=== PATIENT | male | born 1975 | race African-American/Black ===

== ENCOUNTER 2016-06-14 09:33 | Emergency (ER) | payer OTHER, MEDICARE ==
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
[2016-06-14 12:34] LABS: ABSOLUTE EOSINOPHILS # (AUTO) 0.3 10^3/uL (0.0-0.6); ABSOLUTE MONOCYTES (AUTO) 0.4 10^3/uL (0.1-1.4); ABSOLUTE NEUT (AUTO) 2.9 10^3/uL (1.7-8.2); BASOPHILS % (AUTO) 0.7 % (0-2); EOSINOPHILS % (AUTO) 5.1 % (0-6); HEMATOCRIT 36.2 % (37.9-51.0); HEMOGLOBIN 11.8 g/dL (13.5-17.0); HGB HCT DIFFERENCE -0.8; LYMPHOCYTES % (AUTO) 35.5 % (13-45); MEAN CORPUSCULAR HEMOGLOBIN 26.7 pg (27.0-33.4); MEAN CORPUSCULAR HGB CONC 32.7 g/dL (32.0-36.0); MEAN CORPUSCULAR VOLUME 82 fl (80-97); MONOCYTES % (AUTO) 7.4 % (3-13); RED BLOOD COUNT 4.44 10^6/uL (4.35-5.55); RED CELL DISTRIBUTION WIDTH 15.6 % (11.5-14.0); SEGMENTED NEUTROPHILS % (AUTO) 51.3 % (42-78); WHITE BLOOD COUNT 5.7 10^3/uL (4.0-10.5)
[2016-06-14 13:10] VITALS: BP 137/88
== END 2016-06-14 13:09 | disposition home or self-care (01) ==
LOC: ER 09:33
DX: Z48.817 Encounter for surgical aftercare following surgery on the skin and subcutaneous tissue (principal); M79.602 Pain in left arm; R11.2 Nausea with vomiting, unspecified; I10 Essential (primary) hypertension; M54.5 Low back pain; G89.29 Other chronic pain; Z79.891 Long term (current) use of opiate analgesic; Z88.0 Allergy status to penicillin; Z88.8 Allergy status to other drugs, medicaments and biological substances; Z88.5 Allergy status to narcotic agent
CPT/HCPCS: 36415; 85025; 99283

== ENCOUNTER 2016-07-19 06:47 | Emergency (ER) | payer OTHER, MEDICARE ==
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
[2016-07-19] MEDS ORDERED: CLINDAMYCIN HCL 150 MG CAPSULE PO ONE (08:25)
[2016-07-19] MEDS ORDERED: PREDNISONE 20 MG TABLET PO ONE (08:26)
[2016-07-19 09:08] VITALS: BP 136/74
== END 2016-07-19 09:08 | disposition home or self-care (01) ==
LOC: ER 06:47
DX: K08.89 Other specified disorders of teeth and supporting structures (principal); Z79.899 Other long term (current) drug therapy
CPT/HCPCS: 99283; J7512

== ENCOUNTER 2016-09-07 04:41 | Emergency (ER) | payer OTHER, MEDICARE ==
[2016-09-07] MEDS ORDERED: OXYCODONE-ACETAMINOPHEN 5-325 MG TABLET ONE (11:32)
== END 2016-09-07 11:41 | disposition home or self-care (01) ==
LOC: ER 04:41
DX: S39.012A Strain of muscle, fascia and tendon of lower back, initial encounter (principal); G89.21 Chronic pain due to trauma; M54.9 Dorsalgia, unspecified; W10.9XXA Fall (on) (from) unspecified stairs and steps, initial encounter
CPT/HCPCS: 96372; 99283

== ENCOUNTER → 2016-09-08 | Outpatient (CLI) | payer MEDICARE, OTHER ==
[2016-09-09 09:19] LABS: BLOOD UREA NITROGEN 8 mg/dL (7-20); CALCIUM 9.9 mg/dL (8.4-10.2); CHLORIDE 105 mmol/L (98-107); GLUCOSE 91 mg/dL (75-110)
[2016-09-09 09:21] LABS: ANION GAP 13 (5-19); CARBON DIOXIDE 23 mmol/L (22-30); SODIUM 141.4 mmol/L (137-145)
--- NOTE | 2016-09-10 17:47 | EKG REPORT ---
SEVERITY:- NORMAL ECG - SINUS RHYTHM : Confirmed by: Divine Crook MD 10-Sep-2016 17:47:00
== END ==
LOC: OD 07:35
PROVIDERS: ATTEND Orthopaedic Surgery
DX: Z01.810 Encounter for preprocedural cardiovascular examination (principal); Z01.812 Encounter for preprocedural laboratory examination; Z01.818 Encounter for other preprocedural examination
CPT/HCPCS: 36415; 80048; 93005; 93010

== ENCOUNTER 2016-09-09 03:41 | Emergency (ER) | payer MEDICARE, OTHER ==
[~2016-09-09 03:41] MED LIST: HYDROMORPHONE HCL INJ/PF 2 MG/ML AMPULE ONE; PREDNISONE 20 MG TABLET ONE; PROMETHAZINE HCL 25 MG TABLET ONE
[2016-09-09 06:04] LABS: APPEARANCE,URINE CLEAR; BILIRUBIN,URINE NEGATIVE (NEGATIVE); CALCIUM OXALATE CRYSTALS,URINE FEW /HPF; GLUCOSE, URINE NEGATIVE (NEGATIVE); KETONES,URINE NEGATIVE (NEGATIVE); LEUKOCYTE ESTERASE,URINE NEGATIVE (NEGATIVE); NITRITE,URINE NEGATIVE (NEGATIVE); PROTEIN,URINE NEGATIVE (NEGATIVE); URINE SPECIFIC GRAVITY 1.032; UROBILINOGEN,URINE NEGATIVE mg/dL (<2.0)
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
[2016-09-09] MEDS ORDERED: NORMAL SALINE 1000 ML 1,000 ML IV ONE (07:29)
[2016-09-09] MEDS ORDERED: DEXAMETHASONE SOD PHOS INJ 10 MG/1 ML VIAL IV ONE (07:30)
[2016-09-09] MEDS ORDERED: HYDROMORPHONE HCL INJ/PF 2 MG/ML AMPULE IV ONE ×4 (07:30→18:59)
[2016-09-09] MEDS ORDERED: PREDNISONE 20 MG TABLET PO ONE (08:48)
[2016-09-09] MEDS ORDERED: ONDANSETRON 4 MG TAB.RAPDIS PO ONE (08:48)
[2016-09-09] MEDS ORDERED: OXYCODONE-ACETAMINOPHEN 5-325 MG TABLET PO ONE (08:48)
[2016-09-09] MEDS ORDERED: ONDANSETRON HCL INJ/PF 4 MG/2 ML SDV IV ONE ×2 (13:12→18:59)
[2016-09-09 21:13] VITALS: BP 138/74
== END 2016-09-09 21:15 | disposition home or self-care (01) ==
LOC: ER 03:41
DX: M54.17 Radiculopathy, lumbosacral region (principal); R11.10 Vomiting, unspecified; I10 Essential (primary) hypertension; Z87.442 Personal history of urinary calculi; Z90.49 Acquired absence of other specified parts of digestive tract; Z88.6 Allergy status to analgesic agent; Z88.0 Allergy status to penicillin
CPT/HCPCS: 96376; 99284; 96361; 96374; 96375; 81001; 72158; A9577; A9270; J1170; J2405; J7030; J1100; S0119

== ENCOUNTER 2016-09-14 12:45 | Day surgery (SDC) | payer MEDICARE, OTHER ==
--- NOTE | 2016-09-14 08:33 | RADIOLOGY REPORT (SQ) ---
EXAM DESCRIPTION: CHEST SINGLE VIEW COMPLETED DATE/TIME: 09/14/2016 8:21 am REASON FOR STUDY: PRE OP COMPARISON: 05/06/2015. EXAM PARAMETERS: NUMBER OF VIEWS: One view. TECHNIQUE: Single frontal radiographic view of the chest acquired. RADIATION DOSE: NA LIMITATIONS: None. FINDINGS: LUNGS AND PLEURA: No opacities, masses or pneumothorax. No pleural effusion. MEDIASTINUM AND HILAR STRUCTURES: No masses. Contour normal. HEART AND VASCULAR STRUCTURES: Heart upper limits of normal in size. Normal vasculature. BONES: No acute findings. HARDWARE: None in the chest. OTHER: No other significant finding. IMPRESSION: NO ACUTE RADIOGRAPHIC FINDING IN THE CHEST. TECHNICAL DOCUMENTATION: JOB ID: [id number]
[2016-09-14 08:42] LABS: HEMATOCRIT 40.8 % (37.9-51.0); HEMOGLOBIN 13.5 g/dL (13.5-17.0); HGB HCT DIFFERENCE -0.3; MEAN CORPUSCULAR HEMOGLOBIN 26.7 pg (27.0-33.4); MEAN CORPUSCULAR VOLUME 81 fl (80-97); RED BLOOD COUNT 5.05 10^6/uL (4.35-5.55)
--- NOTE | 2016-09-14 10:50 | Operative Report ---
Operative Report DATE OF SURGERY: 09/14/16 PREOPERATIVE DIAGNOSIS: Left partial foot amputation OPERATION: Left Lisfranc revision amputation SURGEON: PHUC CRABTREE ANESTHESIA: GA TISSUE REMOVED OR ALTERED: Left forefoot pathology ESTIMATED BLOOD LOSS: 100 PROCEDURE: With the patient supine the operating table left lower extremities prepped and draped in sterile fashion. The limb was elevated for exsanguination tourniquet inflated 280 torr. A fishmouth type incision is made over with a dorsal incision over the midfoot and the plantar incision over the distal metatarsal phalangeal region. Sharp dissection was used dorsally to carry the incision down to the metatarsal joint. The tarsal metatarsal joint is then divided beginning medially over the first ray and extending lateral to the to the fifth ray. The joint has been disarticulated the dissection then proceeded along the plantar surface between the metatarsal bone and the plantar musculature. Specimen was then delivered from the field. The wound was irrigated. The tourniquet was deflated. Hemostasis obtained with electrocautery. The plantar flap was then reapproximated by flipping it back to the dorsal skin and sutured with Vicryl followed by nylon. A sterile compressive dressing and plaster splint were applied and the patient's return to recovery room in satisfactory condition.
[~2016-09-14 12:45] MED LIST changes: +CLINDAMYCIN 600 MG/D5W RTU 600 MG/50 ML RTUPB IV PRN; +FENTANYL CITRATE INJ/PF 100 MCG/2 ML AMPUL IV PRN; +FENTANYL CITRATE INJ/PF 100 MCG/2 ML AMPUL ONE; +IBUPROFEN INJ 800 MG/8 ML VIAL IV ONE; +MEPERIDINE HCL/PF INJ 25 MG/1 ML DISP.SYRIN IV PRN; +MIDAZOLAM 2 MG/2 ML INJ ONE; +MORPHINE SULFATE 10 MG/ML INJ IV PRN; +ONDANSETRON 4 MG TAB.RAPDIS SL PRN; +OXYCODONE HCL IR 5 MG TABLET PO PRN; +OXYCODONE-ACETAMINOPHEN 5-325 MG TABLET ONE; +OXYCODONE-ACETAMINOPHEN 5-325 MG TABLET PO PRN; -PREDNISONE 20 MG TABLET ONE; -PROMETHAZINE HCL 25 MG TABLET ONE; +PROMETHAZINE HCL INJ 25 MG/1 ML VIAL IV PRN; +PROPOFOL INJ 200 MG/20 ML VIAL IV ONE; +RINGERS SOLUTION,LACTATED 1,000 ML IV PRN; +TRANEXAMIC ACID INJ/PF 1,000 MG/10 ML SDV IV ONE
[2016-09-14] MEDS ORDERED: TRANEXAMIC ACID INJ/PF 1,000 MG/10 ML SDV IV ONE ×2 (13:00→18:30)
[2016-09-14] MEDS ORDERED: SUCCINYLCHOLINE CHLORIDE INJ 200 MG/10 ML VIAL ONE (13:26)
[2016-09-14] MEDS ORDERED: DEXAMETHASONE SOD PHOSPHATE INJ 4 MG/1 ML VIAL ONE (13:26)
[2016-09-14] MEDS ORDERED: ONDANSETRON HCL INJ/PF 4 MG/2 ML SDV ONE (13:26)
[2016-09-14] MEDS ORDERED: HYDROMORPHONE HCL INJ/PF 2 MG/ML AMPULE ONE (13:30)
[2016-09-14] MEDS: HYDROMORPHONE HCL INJ/PF 2 MG/ML AMPULE IV PRN ×7 (14:34→23:45)
[2016-09-14] MEDS: CYCLOBENZAPRINE HCL 10 MG TABLET PO SCH ×2 (16:40→23:45)
[2016-09-14] MEDS: CLINDAMYCIN 600 MG/D5W RTU 600 MG/50 ML RTUPB IV SCH (18:21)
[2016-09-15] MEDS: HYDROMORPHONE HCL INJ/PF 2 MG/ML AMPULE IV PRN ×5 (01:08→22:06)
[2016-09-15] MEDS: CLINDAMYCIN 600 MG/D5W RTU 600 MG/50 ML RTUPB IV SCH (01:08)
[2016-09-15] MEDS: CYCLOBENZAPRINE HCL 10 MG TABLET PO SCH ×3 (05:31→17:25)
[2016-09-15] MEDS ORDERED: OXYCODONE HCL SR 10 MG TABLET PO ONE (07:00)
[2016-09-15] MEDS: OXYCODONE HCL IR 5 MG TABLET PO PRN ×3 (08:05→18:49)
[2016-09-15] MEDS: LOSARTAN POTASSIUM 50 MG TABLET PO SCH (09:02)
[2016-09-15] MEDS: LISINOPRIL 10 MG TABLET PO SCH (09:03)
[2016-09-15] MEDS: HYDROCHLOROTHIAZIDE 12.5 MG CAPSULE PO SCH (09:03)
[2016-09-15] MEDS: OXYCODONE HCL SR 10 MG TABLET PO SCH (17:25)
[2016-09-16] MEDS: HYDROMORPHONE HCL INJ/PF 2 MG/ML AMPULE IV PRN ×6 (00:31→11:16)
[2016-09-16] MEDS: CYCLOBENZAPRINE HCL 10 MG TABLET PO SCH ×3 (00:31→11:16)
[2016-09-16] MEDS: OXYCODONE HCL SR 10 MG TABLET PO SCH (06:13)
--- NOTE | 2016-09-16 06:38 | PDOC DISCHARGE SUMMARY ---
General - Admit/Disc Date/PCP Admission Date/Primary Care Provider: 09/14/16 07:54 PETER LUCAS MD Discharge Date: 09/16/16 - Discharge Diagnosis (1) Partial traumatic amputation of left foot Is this a current diagnosis for this admission?: Yes - Additional Information Resuscitation Status: Full Code Discharge Diet: As Tolerated, Regular Discharge Activity: Activity As Tolerated, Balance Activity w/Rest Home Medications: Lisinopril [Prinivil 10 mg Tablet] 10 mg PO DAILY 09/14/16 Cyclobenzaprine HCl [Flexeril 10 mg Tablet] 10 mg PO Q6 #0 tablet 09/16/16 Hydrochlorothiazide [Hydrodiuril 12.5 mg Capsule] 12.5 mg PO DAILY #0 capsule Lisinopril [Prinivil 10 mg Tablet] 10 mg PO DAILY #0 tablet 09/16/16 Losartan Potassium [Cozaar 50 mg Tablet] 50 mg PO DAILY #0 tablet 09/16/16 Oxycodone HCl [Oxy-Ir 5 mg Tablet] 10 mg PO Q4HP PRN #0 tablet 09/16/16 Oxycodone HCl [Oxycontin Sr 10 mg Tablet] 10 mg PO Q12A #0 tab.sr.12h 09/16/16 History of Present Illness History of Present Illness: TARI GALAVIZ is a 41 year old male posterior traumatic amputation of his left first ray with residual pain and functional disability. Patient is admitted for a elective partial foot amputation Hospital Course Hospital Course: Patient is admitted through the operating room where he undergoes a Lisfranc amputation which was uncomplicated. He is returned to the floor in satisfactory condition. Pain control is problematic. Pain management, Dr. Daniels, was consulted for assistance there of. Next progress with physical therapy emulating with crutches. Physical Exam Vital Signs: Temp Pulse Resp BP Pulse Ox 36.9 C 113 H 19 146/91 H 100 09/16/16 00:36 09/16/16 00:36 09/16/16 00:36 09/16/16 00:36 09/16/16 00:36 Intake & Output 09/14/16 09/15/16 09/16/16 06:59 06:59 06:59 Intake Total 3021 1185 Output Total 1314 0850 Balance 2325 -585 Weight 99.8 kg 99.8 kg General appearance: PRESENT: mild distress Head exam: PRESENT: normocephalic Eye exam: PRESENT: EOMI Respiratory exam: PRESENT: unlabored Cardiovascular exam: PRESENT: RRR Pulses: PRESENT: +1 pedal pulses bilateral Vascular exam: PRESENT: normal capillary refill GI/Abdominal exam: PRESENT: soft Rectal exam: PRESENT: deferred Extremities exam: PRESENT: other - Lower extremity dressing clean dry and intact Neurological exam: PRESENT: alert, awake, oriented to person, oriented to place , oriented to time, oriented to situation, CN II-XII grossly intact. ABSENT: motor sensory deficit Psychiatric exam: PRESENT: appropriate affect, normal mood. ABSENT: homicidal ideation, suicidal ideation Skin exam: PRESENT: dry, intact, warm. ABSENT: cyanosis, rash Results Laboratory Results: 09/14/16 08:25 09/14/16 08:25 Impressions: Chest X-Ray 09/14/16 00:00 IMPRESSION: NO ACUTE RADIOGRAPHIC FINDING IN THE CHEST. Status: Imported from [facility] BEING DISCHARGED WITH ANY OF THE FOLLOWING DIAGNOSIS?: No VTE patient discharged on overlapping Therapy?: No Reason(s) for not prescribing Overlap Therapy:: Not indicated Plan Discharge Plan: Discharge home with home health nursing, home health physical therapy, crutches. Will be with Dr. Baum in the [facility] for surgery approximately 2 weeks for suture removal.
[2016-09-16] MEDS: HYDROCHLOROTHIAZIDE 12.5 MG CAPSULE PO SCH (09:16)
[2016-09-16] MEDS: LISINOPRIL 10 MG TABLET PO SCH (09:16)
[2016-09-16] MEDS: LOSARTAN POTASSIUM 50 MG TABLET PO SCH (09:16)
[2016-09-16 15:04] VITALS: BP 174/106
== END 2016-09-16 15:04 | disposition home or self-care (01) ==
LOC: EDSTATUS 12:45 → OROUT 12:45 → INOR 12:54 → 4S 12:54 → UNDODISIN 09-16 15:04 → OROUT 09-16 15:04
PROVIDERS: ATTEND Orthopaedic Surgery
PROC: 0Y6N0ZB Detachment at Left Foot, Partial 2nd Ray, Open Approach (ICD-10-PCS; 2016-09-14)
PROC: 0Y6N0ZC Detachment at Left Foot, Partial 3rd Ray, Open Approach (ICD-10-PCS; 2016-09-14)
PROC: 0Y6N0ZD Detachment at Left Foot, Partial 4th Ray, Open Approach (ICD-10-PCS; 2016-09-14)
PROC: 0Y6N0ZF Detachment at Left Foot, Partial 5th Ray, Open Approach (ICD-10-PCS; 2016-09-14)
PROC: 0Y6N0Z9 Detachment at Left Foot, Partial 1st Ray, Open Approach (ICD-10-PCS; principal; 2016-09-14 10:15)
DX: G89.21 Chronic pain due to trauma (principal); M79.672 Pain in left foot; I10 Essential (primary) hypertension; Z89.412 Acquired absence of left great toe; Z79.899 Other long term (current) drug therapy; Z88.6 Allergy status to analgesic agent; Z88.5 Allergy status to narcotic agent
CPT/HCPCS: 36415; 84132; 85027; 88305 ×2; 88311; 71010; 97162; 28805; J2250; A9270 ×14; J1100; J3010; J1170 ×3; J0330; J2405; J7120; J2704; J3490; J1741; G8978; G8979; G8980; 01480; S0119

== ENCOUNTER 2016-09-30 15:27 | Emergency (ER) | payer MEDICARE ==
[2016-09-30 15:38] VITALS: BP 139/105
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
[2016-09-30 16:38] LABS: ABSOLUTE BASOPHILS # (AUTO) 0.1 10^3/uL (0.0-0.2); ABSOLUTE EOSINOPHILS # (AUTO) 0.1 10^3/uL (0.0-0.6); ABSOLUTE LYMPHOCYTES (AUTO) 2.5 10^3/uL (0.5-4.7); ABSOLUTE MONOCYTES (AUTO) 0.4 10^3/uL (0.1-1.4); ABSOLUTE NEUT (AUTO) 5.3 10^3/uL (1.7-8.2); EOSINOPHILS % (AUTO) 1.6 % (0-6); HEMATOCRIT 38.8 % (37.9-51.0); HEMOGLOBIN 12.8 g/dL (13.5-17.0); HGB HCT DIFFERENCE -0.4; LYMPHOCYTES % (AUTO) 29.5 % (13-45); MEAN CORPUSCULAR HEMOGLOBIN 26.4 pg (27.0-33.4); MEAN CORPUSCULAR HGB CONC 32.9 g/dL (32.0-36.0); MEAN CORPUSCULAR VOLUME 80 fl (80-97); MONOCYTES % (AUTO) 4.7 % (3-13); RED BLOOD COUNT 4.84 10^6/uL (4.35-5.55); RED CELL DISTRIBUTION WIDTH 14.6 % (11.5-14.0); SEGMENTED NEUTROPHILS % (AUTO) 63.2 % (42-78); WHITE BLOOD COUNT 8.5 10^3/uL (4.0-10.5)
[2016-09-30 16:53] LABS: ALANINE AMINOTRANSFERASE 30 U/L (21-72); ALBUMIN 4.6 g/dL (3.5-5.0); ALKALINE PHOSPHATASE 163 U/L (38-126); ANION GAP 14 (5-19); ASPARTATE AMINO TRANSFERASE 21 U/L (17-59); BILIRUBIN,DIRECT 0.3 mg/dL (0.0-0.4); BILIRUBIN,TOTAL 0.5 mg/dL (0.2-1.3); BLOOD UREA NITROGEN 13 mg/dL (7-20); CALCIUM 10.1 mg/dL (8.4-10.2); CARBON DIOXIDE 25 mmol/L (22-30); CHLORIDE 104 mmol/L (98-107); CREATININE RESULT 1.25 mg/dL (0.52-1.25); GLUCOSE 82 mg/dL (75-110); POTASSIUM 4.1 mmol/L (3.6-5.0); SODIUM 142.8 mmol/L (137-145); TOTAL PROTEIN 8.9 g/dL (6.3-8.2)
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
[2016-09-30] MEDS ORDERED: OXYCODONE HCL SR 10 MG TABLET PO ONE (18:41)
== END 2016-09-30 19:14 | disposition home or self-care (01) ==
LOC: ER 15:27
DX: S98.922 Partial traumatic amputation of left foot, level unspecified (principal); M79.672 Pain in left foot; R50.9 Fever, unspecified; G89.29 Other chronic pain; X58.XXXS Exposure to other specified factors, sequela
CPT/HCPCS: 99283; 36415; 87040; 85025; 80053; A9270

== ENCOUNTER 2016-10-23 21:40 | Emergency (ER) | payer MEDICARE ==
[2016-10-24 01:42] LABS: ABSOLUTE EOSINOPHILS # (AUTO) 0.4 10^3/uL (0.0-0.6); ABSOLUTE LYMPHOCYTES (AUTO) 2.6 10^3/uL (0.5-4.7); ABSOLUTE MONOCYTES (AUTO) 0.7 10^3/uL (0.1-1.4); ABSOLUTE NEUT (AUTO) 3.3 10^3/uL (1.7-8.2); BASOPHILS % (AUTO) 0.3 % (0-2); EOSINOPHILS % (AUTO) 5.3 % (0-6); HEMATOCRIT 36.4 % (37.9-51.0); HEMOGLOBIN 11.7 g/dL (13.5-17.0); HGB HCT DIFFERENCE -1.3; LYMPHOCYTES % (AUTO) 37.2 % (13-45); MEAN CORPUSCULAR HEMOGLOBIN 25.6 pg (27.0-33.4); MEAN CORPUSCULAR HGB CONC 32.1 g/dL (32.0-36.0); MEAN CORPUSCULAR VOLUME 80 fl (80-97); MONOCYTES % (AUTO) 9.6 % (3-13); RED BLOOD COUNT 4.56 10^6/uL (4.35-5.55); RED CELL DISTRIBUTION WIDTH 14.7 % (11.5-14.0); SEGMENTED NEUTROPHILS % (AUTO) 47.6 % (42-78)
[2016-10-24 01:45] LABS: ALANINE AMINOTRANSFERASE 25 U/L (21-72); ALBUMIN 4.3 g/dL (3.5-5.0); ALKALINE PHOSPHATASE 121 U/L (38-126); ANION GAP 13 (5-19); ASPARTATE AMINO TRANSFERASE 25 U/L (17-59); BILIRUBIN,DIRECT 0.3 mg/dL (0.0-0.4); BILIRUBIN,TOTAL 0.3 mg/dL (0.2-1.3); BLOOD UREA NITROGEN 7 mg/dL (7-20); CALCIUM 9.5 mg/dL (8.4-10.2); CARBON DIOXIDE 26 mmol/L (22-30); CHLORIDE 101 mmol/L (98-107); CREATININE RESULT 1.15 mg/dL (0.52-1.25); GLUCOSE 74 mg/dL (75-110); POTASSIUM 4.1 mmol/L (3.6-5.0); SODIUM 140.2 mmol/L (137-145); TOTAL PROTEIN 8.1 g/dL (6.3-8.2)
[2016-10-24] MEDS ORDERED: HYDROMORPHONE HCL INJ/PF 2 MG/ML AMPULE IV ONE ×2 (01:46→03:40)
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
--- NOTE | 2016-10-24 02:42 | RADIOLOGY REPORT (SQ) ---
EXAM DESCRIPTION: ANKLE LEFT COMPLETE COMPLETED DATE/TIME: 10/24/2016 2:19 am REASON FOR STUDY: injury, pain and swelling COMPARISON: None. NUMBER OF VIEWS: Three views. TECHNIQUE: AP, lateral, and oblique radiographic images acquired of the left ankle. LIMITATIONS: None. FINDINGS: MINERALIZATION: Normal. BONES: No acute fracture or dislocation. No worrisome bone lesions. 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 JOINTS: No effusions. SOFT TISSUES: Mild diffuse swelling of the left ankle. OTHER: No other significant finding. IMPRESSION: Moderate left ankle swelling. TECHNICAL DOCUMENTATION: JOB ID: [id number] [employer]- All Rights Reserved
--- NOTE | 2016-10-24 02:44 | RADIOLOGY REPORT (SQ) ---
EXAM DESCRIPTION: FOOT LEFT COMPLETE COMPLETED DATE/TIME: 10/24/2016 2:19 am REASON FOR STUDY: injury, pain and swelling COMPARISON: 03/18/2016. NUMBER OF VIEWS: Three views. TECHNIQUE: AP, lateral and oblique radiographic images acquired of the left foot. LIMITATIONS: None. FINDINGS: MINERALIZATION: Osteopenia. BONES: Interval amputation at the level of the left midfoot with associated moderate foot -ankle swel ling. Moderate Achilles tendinous enthesophyte. JOINTS: No effusions. SOFT TISSUES: As above. OTHER: No other significant finding. IMPRESSION: Moderate swelling. Prior amputation at the left midfoot. TECHNICAL DOCUMENTATION: JOB ID: [id number] [employer]- All Rights Reserved
[2016-10-24 04:04] VITALS: BP 154/90
== END 2016-10-24 04:02 | disposition home or self-care (01) ==
LOC: ER 21:40
DX: M25.472 Effusion, left ankle (principal); I10 Essential (primary) hypertension; Z89.432 Acquired absence of left foot; Z88.0 Allergy status to penicillin; Z88.8 Allergy status to other drugs, medicaments and biological substances; Z88.5 Allergy status to narcotic agent
CPT/HCPCS: 96376; 99283; 96374; 36415; 87040; 85025; 80053; 73610; 73630; J1170

== ENCOUNTER 2016-11-16 23:03 | Emergency (ER) | payer MEDICARE ==
[2016-11-17] MEDS ORDERED: HYDROMORPHONE HCL INJ/PF 2 MG/ML AMPULE IV ONE ×3 (00:36→02:56)
[2016-11-17] MEDS ORDERED: ONDANSETRON HCL INJ/PF 4 MG/2 ML SDV IV ONE (00:37)
[2016-11-17] MEDS ORDERED: NORMAL SALINE 1000 ML 1,000 ML IV PRN (00:37)
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
[2016-11-17 00:58] LABS: ABSOLUTE BASOPHILS # (AUTO) 0.1 10^3/uL (0.0-0.2); ABSOLUTE EOSINOPHILS # (AUTO) 0.3 10^3/uL (0.0-0.6); ABSOLUTE LYMPHOCYTES (AUTO) 4.1 10^3/uL (0.5-4.7); ABSOLUTE MONOCYTES (AUTO) 0.6 10^3/uL (0.1-1.4); ABSOLUTE NEUT (AUTO) 4.2 10^3/uL (1.7-8.2); BASOPHILS % (AUTO) 0.6 % (0-2); EOSINOPHILS % (AUTO) 3.2 % (0-6); HEMATOCRIT 38.7 % (37.9-51.0); HEMOGLOBIN 12.8 g/dL (13.5-17.0); HGB HCT DIFFERENCE -0.3; MEAN CORPUSCULAR HEMOGLOBIN 26.2 pg (27.0-33.4); MEAN CORPUSCULAR HGB CONC 33.1 g/dL (32.0-36.0); MEAN CORPUSCULAR VOLUME 79 fl (80-97); MONOCYTES % (AUTO) 6.8 % (3-13); RED BLOOD COUNT 4.91 10^6/uL (4.35-5.55); RED CELL DISTRIBUTION WIDTH 15.2 % (11.5-14.0); SEGMENTED NEUTROPHILS % (AUTO) 45.4 % (42-78); WHITE BLOOD COUNT 9.2 10^3/uL (4.0-10.5)
[2016-11-17 01:26] LABS: ALANINE AMINOTRANSFERASE 27 U/L (21-72); ALBUMIN 4.6 g/dL (3.5-5.0); ALKALINE PHOSPHATASE 111 U/L (38-126); ANION GAP 14 (5-19); ASPARTATE AMINO TRANSFERASE 26 U/L (17-59); BILIRUBIN,DIRECT 0.4 mg/dL (0.0-0.4); BILIRUBIN,TOTAL 0.5 mg/dL (0.2-1.3); BLOOD UREA NITROGEN 9 mg/dL (7-20); CALCIUM 9.3 mg/dL (8.4-10.2); CARBON DIOXIDE 26 mmol/L (22-30); CHLORIDE 102 mmol/L (98-107); GLUCOSE 101 mg/dL (75-110); POTASSIUM 4.6 mmol/L (3.6-5.0); SODIUM 141.6 mmol/L (137-145); TOTAL PROTEIN 8.3 g/dL (6.3-8.2)
[2016-11-17 01:28] LABS: C-REACTIVE PROTEIN < 5.0 mg/L (<10.0)
[2016-11-17 01:35] LABS: ERYTHROCYTE SEDIMENTATION RATE 22 mm/hr (0-15)
--- NOTE | 2016-11-17 01:54 | RADIOLOGY REPORT (SQ) ---
EXAM DESCRIPTION: FOOT LEFT COMPLETE COMPLETED DATE/TIME: 11/17/2016 1:35 am REASON FOR STUDY: left foot pain COMPARISON: 10/24/2016. NUMBER OF VIEWS: Three views. TECHNIQUE: AP, lateral and oblique radiographic images acquired of the left foot. LIMITATIONS: None. FINDINGS: MINERALIZATION: Osteopenia. BONES: No acute fracture or dislocation. No worrisome bone lesions. Head cage/ resection site of th e left midfoot with associated swelling. Mild talonavicular osteoarthritis. JOINTS: No effusions. SOFT TISSUES: As above. OTHER: No other significant finding. IMPRESSION: Stable. Moderate swelling. Prior amputation -resection at the left midfoot. TECHNICAL DOCUMENTATION: JOB ID: [id number] [employer]- All Rights Reserved
[2016-11-17] MEDS ORDERED: HYDROMORPHONE HCL INJ/PF 2 MG/ML AMPULE ONE (02:23)
[2016-11-17 03:18] VITALS: BP 129/76
== END 2016-11-17 03:17 | disposition home or self-care (01) ==
LOC: ER 23:03
DX: M79.2 Neuralgia and neuritis, unspecified (principal); M79.672 Pain in left foot; M79.89 Other specified soft tissue disorders; I10 Essential (primary) hypertension; Z79.891 Long term (current) use of opiate analgesic; Z79.899 Other long term (current) drug therapy; Z89.432 Acquired absence of left foot; Z88.0 Allergy status to penicillin; Z88.8 Allergy status to other drugs, medicaments and biological substances; Z88.5 Allergy status to narcotic agent
CPT/HCPCS: 96376; 99283; 96361; 96374; 96375; 36415; 85025; 85652; 86140; 80053; 73630; J1170; J2405; J7030

== ENCOUNTER 2016-12-11 10:21 | Emergency (ER) | payer MEDICARE, OTHER ==
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
--- NOTE | 2016-12-11 11:23 | RADIOLOGY REPORT (SQ) ---
EXAM DESCRIPTION: FOOT LEFT COMPLETE COMPLETED DATE/TIME: 12/11/2016 11:10 am REASON FOR STUDY: mid foot pain, s/p partial amputation COMPARISON: 11/17/2016. NUMBER OF VIEWS: Three views. TECHNIQUE: AP, lateral and oblique radiographic images acquired of the left foot. LIMITATIONS: None. FINDINGS: MINERALIZATION: Normal. BONES: Stable post amputation change. No acute fracture or dislocation. No worrisome bone lesions. JOINTS: No effusions. SOFT TISSUES: Stable post amputation change. No foreign body. OTHER: No other significant finding. IMPRESSION: STABLE APPEARANCE OF THE LEFT FOOT WITHOUT ACUTE ABNORMALITY IDENTIFIED. TECHNICAL DOCUMENTATION: JOB ID: [id number] [employer]- All Rights Reserved
[2016-12-11 11:42] VITALS: BP 148/96
== END 2016-12-11 11:42 | disposition home or self-care (01) ==
LOC: ER 10:21
DX: M79.672 Pain in left foot (principal); I10 Essential (primary) hypertension; Z79.891 Long term (current) use of opiate analgesic; Z79.899 Other long term (current) drug therapy; Z89.432 Acquired absence of left foot; Z88.0 Allergy status to penicillin; Z88.8 Allergy status to other drugs, medicaments and biological substances; Z87.891 Personal history of nicotine dependence
CPT/HCPCS: 99283

== ENCOUNTER 2016-12-31 07:41 | Emergency (ER) | payer OTHER, MEDICARE ==
--- NOTE | 2016-12-31 08:56 | RADIOLOGY REPORT (SQ) ---
EXAM DESCRIPTION: CT HEAD WITHOUT COMPLETED DATE/TIME: 12/31/2016 8:43 am REASON FOR STUDY: left sided headache, ?rt sided muscle weakness COMPARISON: 2013. TECHNIQUE: Axial images acquired through the brain without intravenous contrast. Images reviewed wi th bone, brain and subdural windows. Images stored on PACS. All CT scanners at this facility use dose modulation, iterative reconstruction, and/or weight based d osing when appropriate to reduce radiation dose to as low as reasonably achievable (ALARA). [facility]: Dose Right [facility]: CareDose [facility]: Dose Right [facility]: Teradose 4D [facility]: DealTraction RADIATION DOSE: Up-to-date CT equipment and radiation dose reduction techniques were employed. CTDIv ol: 64.6 mGy. DLP: 1163 mGy-cm. mGy. LIMITATIONS: None. FINDINGS: VENTRICLES: Normal size and contour. CEREBRUM: No masses. No hemorrhage. No midline shift. No evidence for acute infarction. Normal gra y/white matter differentiation. No areas of low density in the white matter. CEREBELLUM: No masses. No hemorrhage. No alteration of density. No evidence for acute infarction. EXTRAAXIAL SPACES: No fluid collections. No masses. ORBITS AND GLOBE: No intra- or extraconal masses. Normal contour of globe without masses. CALVARIUM: No fracture. PARANASAL SINUSES: No fluid or mucosal thickening. SOFT TISSUES: No mass or hematoma. OTHER: No other significant finding. IMPRESSION: NORMAL BRAIN CT WITHOUT CONTRAST. COMMENT: Quality ID # [id number]: Final reports with documentation of one or more dose reduction techniques (e.g., Automated exposure control, adjustment of the mA and/or kV according to patient size, use of iterative reconstruction technique) TECHNICAL DOCUMENTATION: JOB ID: [id number]- All Rights Reserved
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
[2016-12-31 09:32] LABS: ABSOLUTE EOSINOPHILS # (AUTO) 0.1 10^3/uL (0.0-0.6); ABSOLUTE LYMPHOCYTES (AUTO) 1.4 10^3/uL (0.5-4.7); ABSOLUTE MONOCYTES (AUTO) 0.6 10^3/uL (0.1-1.4); ABSOLUTE NEUT (AUTO) 6.2 10^3/uL (1.7-8.2); BASOPHILS % (AUTO) 0.5 % (0-2); EOSINOPHILS % (AUTO) 1.5 % (0-6); HEMATOCRIT 40.2 % (37.9-51.0); HEMOGLOBIN 12.7 g/dL (13.5-17.0); HGB HCT DIFFERENCE -2.1; LYMPHOCYTES % (AUTO) 16.9 % (13-45); MEAN CORPUSCULAR HGB CONC 31.5 g/dL (32.0-36.0); MEAN CORPUSCULAR VOLUME 79 fl (80-97); MONOCYTES % (AUTO) 7.1 % (3-13); RED BLOOD COUNT 5.07 10^6/uL (4.35-5.55); RED CELL DISTRIBUTION WIDTH 16.3 % (11.5-14.0); WHITE BLOOD COUNT 8.4 10^3/uL (4.0-10.5)
[2016-12-31 09:41] LABS: APPEARANCE,URINE SLIGHTLY-CLOUDY; BILIRUBIN,URINE NEGATIVE (NEGATIVE); CALCIUM OXALATE CRYSTALS,URINE FEW /HPF; GLUCOSE, URINE NEGATIVE (NEGATIVE); KETONES,URINE NEGATIVE (NEGATIVE); LEUKOCYTE ESTERASE,URINE NEGATIVE (NEGATIVE); NITRITE,URINE NEGATIVE (NEGATIVE); PROTEIN,URINE 30 mg/dL (NEGATIVE); URINE SPECIFIC GRAVITY 1.028; UROBILINOGEN,URINE NEGATIVE mg/dL (<2.0)
[2016-12-31 09:53] LABS: ALANINE AMINOTRANSFERASE 18 U/L (21-72); ALBUMIN 4.7 g/dL (3.5-5.0); ALKALINE PHOSPHATASE 88 U/L (38-126); ANION GAP 15 (5-19); ASPARTATE AMINO TRANSFERASE 22 U/L (17-59); BILIRUBIN,DIRECT 0.3 mg/dL (0.0-0.4); BILIRUBIN,TOTAL 0.5 mg/dL (0.2-1.3); BLOOD UREA NITROGEN 11 mg/dL (7-20); CALCIUM 9.9 mg/dL (8.4-10.2); CARBON DIOXIDE 23 mmol/L (22-30); CHLORIDE 101 mmol/L (98-107); CREATINE KINASE 160 U/L (55-170); CREATININE RESULT 0.92 mg/dL (0.52-1.25); GLUCOSE 105 mg/dL (75-110); POTASSIUM 3.7 mmol/L (3.6-5.0); SODIUM 139.2 mmol/L (137-145)
[2016-12-31 10:00] LABS: URINE BARBITURATES SCREEN NEGATIVE; URINE METHADONE SCREEN NEGATIVE; URINE OPIATES LOW UNCONFIRMED POSITIVE; URINE PHENCYCLIDINE SCREEN NEGATIVE
[2016-12-31] MEDS ORDERED: PROCHLORPERAZINE EDISYLATE INJ 10 MG/2 ML VIAL IM ONE (10:25)
[2016-12-31] MEDS ORDERED: ONDANSETRON HCL 8 MG TABLET PO ONE (10:25)
[2016-12-31 11:28] VITALS: BP 149/85
== END 2016-12-31 11:30 | disposition home or self-care (01) ==
LOC: ER 07:41
DX: R51 Headache (principal); M62.838 Other muscle spasm; R47.82 Fluency disorder in conditions classified elsewhere; R53.1 Weakness; I10 Essential (primary) hypertension; Z88.0 Allergy status to penicillin; Z88.6 Allergy status to analgesic agent; Z90.49 Acquired absence of other specified parts of digestive tract
CPT/HCPCS: 99284; 96372; 36415; 82550; 85025; 80053; 81001; 80307; 70450; S0119; J0780

== ENCOUNTER 2017-03-04 23:15 | Emergency (ER) | payer OTHER, MEDICARE ==
[2017-03-05] MEDS ORDERED: OXYCODONE-ACETAMINOPHEN 5-325 MG TABLET PO ONE (00:12)
[2017-03-05] MEDS ORDERED: METHYLPREDNISOLONE INJ 125 MG/2 ML SDV IM ONE (00:12)
[2017-03-05] MEDS ORDERED: CARISOPRODOL 350 MG TABLET PO ONE (00:12)
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
[2017-03-05 00:46] LABS: APPEARANCE,URINE SLIGHTLY-CLOUDY; BILIRUBIN,URINE NEGATIVE (NEGATIVE); GLUCOSE, URINE NEGATIVE (NEGATIVE); KETONES,URINE NEGATIVE (NEGATIVE); LEUKOCYTE ESTERASE,URINE NEGATIVE (NEGATIVE); NITRITE,URINE NEGATIVE (NEGATIVE); PROTEIN,URINE NEGATIVE (NEGATIVE); URINE SPECIFIC GRAVITY 1.035
[2017-03-05 02:09] VITALS: BP 142/90
--- NOTE | 2017-03-05 02:33 | RADIOLOGY REPORT (SQ) ---
EXAM DESCRIPTION: L SPINE WHOLE COMPLETED DATE/TIME: 03/05/2017 1:29 am REASON FOR STUDY: back pain COMPARISON: None. NUMBER OF VIEWS: Five views including obliques. TECHNIQUE: AP, lateral, oblique, and sacral radiographic images acquired of the lumbar spine. LIMITATIONS: None. FINDINGS: MINERALIZATION: Normal. SEGMENTATION: Normal. No transitional anatomy. ALIGNMENT: Normal. VERTEBRAE: Maintained height. No compression fracture. DISCS: Preserved height. No significant osteophytes or end plate irregularity. POSTERIOR ELEMENTS: Pedicles and facets are intact. No pars defect. HARDWARE: None in the spine. PARASPINAL SOFT TISSUES: Normal. PELVIS: SI joints intact. IMPRESSION: No acute radiographic finding at the lumbar spine. TECHNICAL DOCUMENTATION: JOB ID: [id number] [employer]- All Rights Reserved
== END 2017-03-05 02:00 | disposition home or self-care (01) ==
LOC: ER 23:15
DX: G89.29 Other chronic pain (principal); M54.41 Lumbago with sciatica, right side; R32 Unspecified urinary incontinence; R30.0 Dysuria; I10 Essential (primary) hypertension; Z79.891 Long term (current) use of opiate analgesic; Z98.890 Other specified postprocedural states; Z88.0 Allergy status to penicillin; Z88.8 Allergy status to other drugs, medicaments and biological substances; Z88.5 Allergy status to narcotic agent
CPT/HCPCS: 99284; 96372; 81001; 72110; J3490; J2930

== ENCOUNTER 2017-03-10 09:23 | Emergency (ER) | payer OTHER, MEDICARE ==
[2017-03-10 09:36] VITALS: BP 149/99
[2017-03-10] MEDS ORDERED: ACETAMINOPHEN 325 MG TABLET PO ONE (10:32)
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
== END 2017-03-10 11:38 | disposition left against medical advice (07) ==
LOC: ER 09:23
DX: M79.672 Pain in left foot (principal); M79.89 Other specified soft tissue disorders; Z89.432 Acquired absence of left foot; Z79.899 Other long term (current) drug therapy
CPT/HCPCS: 99281

== ENCOUNTER 2017-03-20 01:33 | Emergency (ER) | payer OTHER, MEDICARE ==
[2017-03-20] MEDS ORDERED: HYDROMORPHONE HCL INJ/PF 2 MG/ML AMPULE IV ONE (03:20)
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
[2017-03-20] MEDS ORDERED: OXYCODONE-ACETAMINOPHEN 5-325 MG TABLET PO ONE (03:24)
[2017-03-20 03:48] LABS: ABSOLUTE EOSINOPHILS # (AUTO) 0.2 10^3/uL (0.0-0.6); ABSOLUTE LYMPHOCYTES (AUTO) 3.6 10^3/uL (0.5-4.7); ABSOLUTE MONOCYTES (AUTO) 0.5 10^3/uL (0.1-1.4); ABSOLUTE NEUT (AUTO) 3.5 10^3/uL (1.7-8.2); BASOPHILS % (AUTO) 0.5 % (0-2); EOSINOPHILS % (AUTO) 3.1 % (0-6); HEMATOCRIT 40.9 % (37.9-51.0); HEMOGLOBIN 13.3 g/dL (13.5-17.0); LYMPHOCYTES % (AUTO) 45.8 % (13-45); MEAN CORPUSCULAR HEMOGLOBIN 24.5 pg (27.0-33.4); MEAN CORPUSCULAR HGB CONC 32.6 g/dL (32.0-36.0); MEAN CORPUSCULAR VOLUME 75 fl (80-97); MONOCYTES % (AUTO) 5.9 % (3-13); RED BLOOD COUNT 5.45 10^6/uL (4.35-5.55); RED CELL DISTRIBUTION WIDTH 17.2 % (11.5-14.0); SEGMENTED NEUTROPHILS % (AUTO) 44.7 % (42-78); WHITE BLOOD COUNT 7.8 10^3/uL (4.0-10.5)
[2017-03-20 04:03] LABS: ALANINE AMINOTRANSFERASE 40 U/L (21-72); ALBUMIN 4.4 g/dL (3.5-5.0); ALKALINE PHOSPHATASE 113 U/L (38-126); ANION GAP 13 (5-19); ASPARTATE AMINO TRANSFERASE 20 U/L (17-59); BILIRUBIN,DIRECT 0.4 mg/dL (0.0-0.4); BILIRUBIN,TOTAL 0.4 mg/dL (0.2-1.3); BLOOD UREA NITROGEN 9 mg/dL (7-20); C-REACTIVE PROTEIN 5.3 mg/L (<10.0); CALCIUM 9.4 mg/dL (8.4-10.2); CARBON DIOXIDE 25 mmol/L (22-30); CHLORIDE 104 mmol/L (98-107); CREATININE RESULT 1.08 mg/dL (0.52-1.25); GLUCOSE 94 mg/dL (75-110); POTASSIUM 4.5 mmol/L (3.6-5.0); TOTAL PROTEIN 8.2 g/dL (6.3-8.2)
[2017-03-20 04:29] LABS: ERYTHROCYTE SEDIMENTATION RATE 18 mm/hr (0-15)
--- NOTE | 2017-03-20 05:35 | RADIOLOGY REPORT (SQ) ---
EXAM DESCRIPTION: FOOT LEFT COMPLETE COMPLETED DATE/TIME: 03/20/2017 5:05 am REASON FOR STUDY: left foot pain and swelling post amputation COMPARISON: None. NUMBER OF VIEWS: Three views. TECHNIQUE: AP, lateral and oblique radiographic images acquired of the left foot. LIMITATIONS: None. FINDINGS: MINERALIZATION: Osteopenia. BONES: Amputation at the Lisfranc joint with moderate soft tissue swelling. JOINTS: No effusions. SOFT TISSUES: As above. OTHER: No other significant finding. IMPRESSION: Amputation and swelling of the residual left forefoot, stable. TECHNICAL DOCUMENTATION: JOB ID: [id number] [employer]- All Rights Reserved
[2017-03-20 06:06] VITALS: BP 153/92
== END 2017-03-20 06:06 | disposition home or self-care (01) ==
LOC: ER 01:33
DX: M79.672 Pain in left foot (principal); I10 Essential (primary) hypertension; M79.89 Other specified soft tissue disorders
CPT/HCPCS: 36415; 80053; 85025; 85652; 86140; 87040; 99283

== ENCOUNTER 2017-04-08 23:44 | Emergency (ER) | payer OTHER, MEDICARE ==
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
--- NOTE | 2017-04-09 01:14 | RADIOLOGY REPORT (SQ) ---
EXAM DESCRIPTION: ANKLE LEFT COMPLETE CLINICAL HISTORY: injury COMPARISON: 10/24/2016 FINDINGS: 3 views of the left ankle. No acute fracture or dislocation. Left mid foot amputation is unchanged. Osteopenia. No radiopaque foreign body. IMPRESSION: No acute fracture or dislocation. Stable appearance of the foot.
[2017-04-09 02:48] VITALS: BP 152/96
== END 2017-04-09 02:48 | disposition home or self-care (01) ==
LOC: ER 23:44
DX: M25.572 Pain in left ankle and joints of left foot (principal); Z89.432 Acquired absence of left foot; I10 Essential (primary) hypertension; Z88.0 Allergy status to penicillin; Z88.8 Allergy status to other drugs, medicaments and biological substances; Z88.5 Allergy status to narcotic agent
CPT/HCPCS: 99283

== ENCOUNTER 2017-05-25 19:21 | Emergency (ER) | payer OTHER, MEDICARE ==
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
[2017-05-25] MEDS ORDERED: ACETAMINOPHEN 325 MG TABLET PO ONE (20:33)
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
[2017-05-25 20:43] LABS: APPEARANCE,URINE CLEAR; BILIRUBIN,URINE NEGATIVE (NEGATIVE); COLOR,URINE YELLOW; GLUCOSE, URINE NEGATIVE (NEGATIVE); KETONES,URINE NEGATIVE (NEGATIVE); LEUKOCYTE ESTERASE,URINE NEGATIVE (NEGATIVE); NITRITE,URINE NEGATIVE (NEGATIVE); PROTEIN,URINE NEGATIVE (NEGATIVE); URINE SPECIFIC GRAVITY 1.011; UROBILINOGEN,URINE NEGATIVE mg/dL (<2.0)
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
[2017-05-25] MEDS ORDERED: CYCLOBENZAPRINE HCL 10 MG TABLET PO ONE (21:46)
[2017-05-25 22:06] VITALS: BP 121/79
== END 2017-05-25 22:05 | disposition home or self-care (01) ==
LOC: ER 19:21
DX: S20.211A Contusion of right front wall of thorax, initial encounter (principal); R10.9 Unspecified abdominal pain; V49.40XA Driver injured in collision with unspecified motor vehicles in traffic accident, initial encounter; I10 Essential (primary) hypertension; Z88.0 Allergy status to penicillin; Z88.6 Allergy status to analgesic agent; Z90.49 Acquired absence of other specified parts of digestive tract
CPT/HCPCS: 76705; 81001; 93976; 99284

== ENCOUNTER → 2017-05-30 | Outpatient (CLI) | payer OTHER, MEDICARE ==
[2017-05-30 11:28] LABS: ABSOLUTE EOSINOPHILS # (AUTO) 0.3 10^3/uL (0.0-0.6); ABSOLUTE LYMPHOCYTES (AUTO) 2.7 10^3/uL (0.5-4.7); ABSOLUTE MONOCYTES (AUTO) 0.3 10^3/uL (0.1-1.4); ABSOLUTE NEUT (AUTO) 2.4 10^3/uL (1.7-8.2); BASOPHILS % (AUTO) 0.6 % (0-2); HEMATOCRIT 42.3 % (37.9-51.0); HEMOGLOBIN 13.8 g/dL (13.5-17.0); LYMPHOCYTES % (AUTO) 47.3 % (13-45); MEAN CORPUSCULAR HEMOGLOBIN 25.6 pg (27.0-33.4); MEAN CORPUSCULAR HGB CONC 32.6 g/dL (32.0-36.0); MEAN CORPUSCULAR VOLUME 79 fl (80-97); MONOCYTES % (AUTO) 5.1 % (3-13); PLATELET COUNT 190 10^3/uL (150-450); RED BLOOD COUNT 5.39 10^6/uL (4.35-5.55); RED CELL DISTRIBUTION WIDTH 17.5 % (11.5-14.0); TOTAL CELLS COUNTED % (AUTO) 100 %; WHITE BLOOD COUNT 5.7 10^3/uL (4.0-10.5)
[2017-05-30 11:29] LABS: APPEARANCE,URINE CLEAR; BILIRUBIN,URINE NEGATIVE (NEGATIVE); COLOR,URINE YELLOW; GLUCOSE, URINE NEGATIVE (NEGATIVE); KETONES,URINE NEGATIVE (NEGATIVE); LEUKOCYTE ESTERASE,URINE NEGATIVE (NEGATIVE); NITRITE,URINE NEGATIVE (NEGATIVE); PROTEIN,URINE NEGATIVE (NEGATIVE); URINE SPECIFIC GRAVITY 1.026; UROBILINOGEN,URINE NEGATIVE mg/dL (<2.0)
[2017-05-30 11:57] LABS: ANION GAP 12 (5-19); BLOOD UREA NITROGEN 8 mg/dL (7-20); CARBON DIOXIDE 26 mmol/L (22-30); CHLORIDE 105 mmol/L (98-107); GLUCOSE 83 mg/dL (75-110); POTASSIUM 4.4 mmol/L (3.6-5.0); SODIUM 143.1 mmol/L (137-145)
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
--- NOTE | 2017-05-30 22:47 | EKG REPORT ---
SEVERITY:- NORMAL ECG - SINUS RHYTHM : Confirmed by: Bharat Lopez 30-May-2017 22:46:41
== END ==
LOC: OD 10:05
PROVIDERS: ATTEND Orthopaedic Surgery
DX: Z01.810 Encounter for preprocedural cardiovascular examination (principal); Z01.812 Encounter for preprocedural laboratory examination; Z01.818 Encounter for other preprocedural examination
CPT/HCPCS: 36415; 71046; 80048; 81001; 85025; 93005; 93010

== ENCOUNTER 2017-06-01 07:38 | Day surgery (SDC) | payer MEDICARE, OTHER ==
[~2017-06-01 07:38] MED LIST changes: +BUPIVACAINE HCL 0.5 % INJ/PF 30 ML SDV ONE; -FENTANYL CITRATE INJ/PF 100 MCG/2 ML AMPUL IV PRN; -FENTANYL CITRATE INJ/PF 100 MCG/2 ML AMPUL ONE; -HYDROMORPHONE HCL INJ/PF 2 MG/ML AMPULE ONE; -IBUPROFEN INJ 800 MG/8 ML VIAL IV ONE; -MEPERIDINE HCL/PF INJ 25 MG/1 ML DISP.SYRIN IV PRN; -MIDAZOLAM 2 MG/2 ML INJ ONE; -MORPHINE SULFATE 10 MG/ML INJ IV PRN; -ONDANSETRON 4 MG TAB.RAPDIS SL PRN; -OXYCODONE HCL IR 5 MG TABLET PO PRN; -OXYCODONE-ACETAMINOPHEN 5-325 MG TABLET ONE; -OXYCODONE-ACETAMINOPHEN 5-325 MG TABLET PO PRN; -PROMETHAZINE HCL INJ 25 MG/1 ML VIAL IV PRN; -PROPOFOL INJ 200 MG/20 ML VIAL IV ONE; -RINGERS SOLUTION,LACTATED 1,000 ML IV PRN; -TRANEXAMIC ACID INJ/PF 1,000 MG/10 ML SDV IV ONE
[2017-06-01] MEDS ORDERED: MIDAZOLAM 2 MG/2 ML INJ ONE ×2 (08:39→08:45)
[2017-06-01] MEDS ORDERED: ACETAMINOPHEN 100 ML IV ONE (08:45)
[2017-06-01] MEDS ORDERED: LIDOCAINE 2% INJ-PF (20 MG/ML) 10 ML AMPUL ONE (08:45)
[2017-06-01] MEDS ORDERED: PROPOFOL INJ 200 MG/20 ML VIAL IV ONE (08:45)
[2017-06-01] MEDS ORDERED: FENTANYL CITRATE INJ/PF 100 MCG/2 ML AMPUL ONE ×3 (08:45→08:50)
[2017-06-01] MEDS ORDERED: ONDANSETRON HCL INJ/PF 4 MG/2 ML SDV ONE (08:45)
[2017-06-01] MEDS ORDERED: HYDROMORPHONE HCL INJ/PF 2 MG/ML AMPULE ONE ×2 (08:46→13:01)
[2017-06-01] MEDS ORDERED: LIDOCAINE 0.5% INJ-PF (5 MG/ML) 50 ML SDV SUBCUT PRN (09:00)
[2017-06-01] MEDS ORDERED: LACTATED RINGERS 1000 ML IV PRN (09:00)
[2017-06-01] MEDS ORDERED: ONDANSETRON HCL INJ/PF 4 MG/2 ML SDV IV PRN (09:42)
[2017-06-01] MEDS ORDERED: OXYCODONE-ACETAMINOPHEN 5-325 MG TABLET PO PRN ×3 (09:42→10:26)
[2017-06-01] MEDS ORDERED: MEPERIDINE HCL/PF INJ 25 MG/1 ML DISP.SYRIN IV PRN (09:42)
[2017-06-01] MEDS ORDERED: FENTANYL CITRATE INJ/PF 100 MCG/2 ML AMPUL IV PRN ×3 (09:42)
[2017-06-01] MEDS ORDERED: PROMETHAZINE HCL INJ 25 MG/1 ML VIAL IV PRN ×2 (09:42)
--- NOTE | 2017-06-01 10:24 | Operative Report ---
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 At this point and a thigh tourniquet was applied to the left lower extremity and the left lower extremity was prepped and draped in a normal sterile surgical fashion. Timeout was done identifying the left knee is a correct site. Esmarch was used to exsanguinate the extremity and the tourniquet was inflated at 300 mmHg. At this point and I proceeded to status my anterolateral portal and introduced the trocar and distend the knee with a sterile saline solution. Under direct visualization I was able to establish the anteromedial portal. Probe was introduced and noted that the patient had pristine medial lateral compartments. There is no loose bodies. There is no meniscal tear ACL and PCL were intact. Visualization of the patellofemoral joint showed that the patella had intact cartilage but the femur had grade 3 and 4 changes. After doing diagnostic arthroscopy I proceeded to use a 4.0 mm shaver to do my abrasion chondroplasty of the femoral trochlea. Once I was able to debride the loose ends and leave a intact edges of cartilage I made sure that they suctioned the fluid from the knee to remove any debris. Pictures were taken showing the before and after abrasion chondroplasty of the femoral trochlea. I then proceeded to close the 2 portal sites with 3-0 nylon and then cover him with Xeroform 4 x 4 dressing and soft roll and overwrapped with an Jonathan bandage. Tourniquet was let down at 22 minutes. Patient was extubated and sent to PACU in a stable condition
--- NOTE | 2017-06-01 10:26 | Discharge Summary ---
Discharge Summary (SDC) - Discharge Final Diagnosis: Chondromalacia of the patellofemoral compartment of the left knee. Date of Surgery: 06/01/17 Discharge Date: 06/01/17 Treatment or Instructions: Patient instructed to follow up in 10-14 days. Patient instructed to keep dressing dry clean and intact for 4 days and then allowed to remove. At that point patient can shower and apply Band-Aids as needed. Patient can weight-bear as tolerated and do range of motion exercises as tolerated. Crutches for support and safety. Can wean crutches once stable on his feet. Patient instructed to call the office if patient develops fevers chills redness and drainage from the surgical sites. Prescriptions: Oxycodone HCl/Acetaminophen [Percocet 5-325 mg Tablet] 1 - 2 tab PO ASDIR PRN # 30 tablet PRN Reason: Discharge Diet: As Tolerated Respiratory Treatments at Home: Deep Breathing/Coughing Discharge Activity: No Lifting/Push/Pulling, Slowly Increase Activity, Walk Frequently Home Care Assistance: None Needed Adaptive Devices on Discharge: Axillary Crutches Report the Following to Your Physician Immediately: Shortness of Breath, Vomiting, Increase in Pain, Fever over 101 Degrees, Unusual Bleeding, Redness, Swelling, Warmth, Increased Soreness, Drainage-Yellow, Drainage-Do, Drainage- Green, Drainage-Foul Smelling
[2017-06-01] MEDS: FENTANYL CITRATE INJ/PF 100 MCG/2 ML AMPUL ONE ×2 (10:40→10:50)
[2017-06-01] MEDS ORDERED: GLYCOPYRROLATE INJ 0.4 MG/2 ML VIAL ONE (14:25)
[2017-06-01 14:44] VITALS: BP 112/78
== END 2017-06-01 14:10 | disposition home or self-care (01) ==
LOC: OROUT 07:38
PROVIDERS: ATTEND Orthopaedic Surgery
PROC: 0SBD4ZZ Excision of Left Knee Joint, Percutaneous Endoscopic Approach (ICD-10-PCS; principal; 2017-06-01 09:45)
DX: M23.92 Unspecified internal derangement of left knee (principal); I10 Essential (primary) hypertension; Z88.5 Allergy status to narcotic agent; Z88.0 Allergy status to penicillin; Z79.899 Other long term (current) drug therapy
CPT/HCPCS: 36415; 84132; 29877; J2250; J3490 ×2; J3010; A9270; J1170; J2405; J2704; J0131; 1400

== ENCOUNTER 2017-06-09 03:11 | Emergency (ER) | payer MEDICARE ==
[2017-06-09] MEDS ORDERED: HYDROMORPHONE HCL INJ/PF 2 MG/ML AMPULE IM ONE (03:37)
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
--- NOTE | 2017-06-09 04:05 | RADIOLOGY REPORT (SQ) ---
EXAM DESCRIPTION: KNEE LEFT 4 VIEW CLINICAL HISTORY: 42 years, Male, post op pain, ? new injury COMPARISON: None. NUMBER OF VIEWS:4 Findings: Bones, joints, and soft tissues of the left knee appear intact. IMPRESSION: No acute findings.
[2017-06-09 04:38] VITALS: BP 160/95
== END 2017-06-09 04:30 | disposition home or self-care (01) ==
LOC: ER 03:11
DX: G89.18 Other acute postprocedural pain (principal); M25.562 Pain in left knee; I10 Essential (primary) hypertension; Z79.899 Other long term (current) drug therapy; Z98.890 Other specified postprocedural states
CPT/HCPCS: 99283; 96372; 73562; J1170

== ENCOUNTER 2017-11-08 15:06 | Emergency (ER) | payer MEDICARE, OTHER ==
[2017-11-08] MEDS ORDERED: NORMAL SALINE 1000 ML 1,000 ML IV ONE (16:59)
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
[2017-11-08 18:31] LABS: ABSOLUTE EOSINOPHILS # (AUTO) 0.3 10^3/uL (0.0-0.6); ABSOLUTE LYMPHOCYTES (AUTO) 2.3 10^3/uL (0.5-4.7); ABSOLUTE MONOCYTES (AUTO) 0.5 10^3/uL (0.1-1.4); ABSOLUTE NEUT (AUTO) 2.5 10^3/uL (1.7-8.2); BASOPHILS % (AUTO) 0.6 % (0-2); EOSINOPHILS % (AUTO) 5.4 % (0-6); HEMATOCRIT 37.9 % (37.9-51.0); HEMOGLOBIN 12.6 g/dL (13.5-17.0); LYMPHOCYTES % (AUTO) 40.3 % (13-45); MEAN CORPUSCULAR HEMOGLOBIN 26.3 pg (27.0-33.4); MEAN CORPUSCULAR HGB CONC 33.2 g/dL (32.0-36.0); MEAN CORPUSCULAR VOLUME 79 fl (80-97); MONOCYTES % (AUTO) 8.6 % (3-13); PLATELET COUNT 202 10^3/uL (150-450); RED BLOOD COUNT 4.79 10^6/uL (4.35-5.55); RED CELL DISTRIBUTION WIDTH 15.3 % (11.5-14.0); SEGMENTED NEUTROPHILS % (AUTO) 45.1 % (42-78); TOTAL CELLS COUNTED % (AUTO) 100 %; WHITE BLOOD COUNT 5.6 10^3/uL (4.0-10.5)
[2017-11-08 18:46] LABS: ALANINE AMINOTRANSFERASE 106 U/L (21-72); ALBUMIN 3.9 g/dL (3.5-5.0); ALKALINE PHOSPHATASE 116 U/L (38-126); ANION GAP 10 (5-19); ASPARTATE AMINO TRANSFERASE 52 U/L (17-59); BILIRUBIN,DIRECT 0.2 mg/dL (0.0-0.4); BILIRUBIN,TOTAL 0.2 mg/dL (0.2-1.3); BLOOD UREA NITROGEN 10 mg/dL (7-20); CARBON DIOXIDE 29 mmol/L (22-30); CHLORIDE 102 mmol/L (98-107); GLUCOSE 74 mg/dL (75-110); LIPASE 55.5 U/L (23-300); POTASSIUM 3.9 mmol/L (3.6-5.0); SODIUM 141.3 mmol/L (137-145); TOTAL PROTEIN 7.4 g/dL (6.3-8.2)
[2017-11-08 19:15] LABS: APPEARANCE,URINE CLEAR; BILIRUBIN,URINE NEGATIVE (NEGATIVE); COLOR,URINE YELLOW; GLUCOSE, URINE NEGATIVE (NEGATIVE); KETONES,URINE NEGATIVE (NEGATIVE); LEUKOCYTE ESTERASE,URINE NEGATIVE (NEGATIVE); NITRITE,URINE NEGATIVE (NEGATIVE); PROTEIN,URINE NEGATIVE (NEGATIVE); URINE SPECIFIC GRAVITY 1.011; UROBILINOGEN,URINE NEGATIVE mg/dL (<2.0)
--- NOTE | 2017-11-08 19:22 | RADIOLOGY REPORT (SQ) ---
EXAM DESCRIPTION: CT LTD RENAL STONE PROTOCOL ON COMPLETED DATE/TIME: 11/08/2017 6:41 pm REASON FOR STUDY: flank pain COMPARISON: 03/08/2016 TECHNIQUE: CT scan of the abdomen and pelvis performed without intravenous or oral contrast. Images reviewed with lung, soft tissue, and bone windows. Reconstructed coronal and sagittal MPR images revi ewed. All images stored on PACS. All CT scanners at this facility use dose modulation, iterative reconstruction, and/or weight based d osing when appropriate to reduce radiation dose to as low as reasonably achievable (ALARA). [facility]: Dose Right [facility]: CareDose [facility]: Dose Right [facility]: Teradose 4D [facility]: Smart Clinical Ink RADIATION DOSE: CT Rad equipment meets quality standard of care and radiation dose reduction techniq ues were employed. CTDIvol: 12.1 mGy. DLP: 681 mGy-cm.mGy. LIMITATIONS: None. FINDINGS: LOWER CHEST: No significant findings. No nodules or infiltrates. NON-CONTRASTED LIVER, SPLEEN, ADRENALS: Evaluation limited by lack of IV contrast. No identified sign ificant masses. PANCREAS: No masses. No peripancreatic inflammatory changes. GALLBLADDER: Surgically absent. RIGHT KIDNEY AND URETER: No suspicious masses. Assessment limited by lack of IV contrast. Multiple calcifications. No hydronephrosis or hydroureter. LEFT KIDNEY AND URETER: No suspicious masses. Assessment limited by lack of IV contrast. Multiple c alcifications. No hydronephrosis or hydroureter. AORTA AND RETROPERITONEUM: No aneurysm. No retroperitoneal masses or adenopathy. BOWEL AND PERITONEAL CAVITY: No obvious masses or inflammatory changes. No free fluid. APPENDIX: Normal. PELVIS, BLADDER, AND ABDOMINAL WALL:No abnormal masses. No free fluid. Bladder normal. BONES: No acute findings. OTHER: No other significant finding. IMPRESSION: NO ACUTE PROCESS IN THE ABDOMEN OR PELVIS. COMMENT: Quality ID # 436: Final reports with documentation of one or more dose reduction techniques (e.g., Automated exposure control, adjustment of the mA and/or kV according to patient size, use of iterative reconstruction technique) TECHNICAL DOCUMENTATION: JOB ID: [id number] [place]-72 2010 [employer]- All Rights Reserved Reading location - IP/workstation name: [email or web address]
[2017-11-08 19:54] LABS: URINE AMPHETAMINES SCREEN NEGATIVE; URINE BARBITURATES SCREEN UNCONFIRMED POSITIVE; URINE BENZODIAZEPINES SCREEN UNCONFIRMED POSITIVE; URINE COCAINE SCREEN NEGATIVE; URINE MARIJUANA (THC) SCREEN NEGATIVE; URINE METHADONE SCREEN NEGATIVE; URINE PHENCYCLIDINE SCREEN NEGATIVE
[2017-11-08] MEDS ORDERED: LIDOCAINE 5% (700 MG) TRANSDERMAL ADH..PATCH TP ONE (20:16)
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
[2017-11-08 20:35] VITALS: BP 111/53
== END 2017-11-08 20:40 | disposition home or self-care (01) ==
LOC: ER 15:06
DX: R10.9 Unspecified abdominal pain (principal); G89.29 Other chronic pain; Z88.0 Allergy status to penicillin; Z88.6 Allergy status to analgesic agent; Z87.442 Personal history of urinary calculi; Z90.49 Acquired absence of other specified parts of digestive tract
CPT/HCPCS: 36415; 76380; 80053; 80307; 81001; 83690; 85025; 87086; 99284

== ENCOUNTER 2017-11-14 13:03 | Emergency (ER) | payer OTHER, MEDICARE ==
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
[2017-11-14 15:04] LABS: ABSOLUTE EOSINOPHILS # (AUTO) 0.4 10^3/uL (0.0-0.6); ABSOLUTE LYMPHOCYTES (AUTO) 2.4 10^3/uL (0.5-4.7); ABSOLUTE MONOCYTES (AUTO) 0.5 10^3/uL (0.1-1.4); ABSOLUTE NEUT (AUTO) 1.9 10^3/uL (1.7-8.2); BASOPHILS % (AUTO) 0.2 % (0-2); EOSINOPHILS % (AUTO) 7.6 % (0-6); HEMATOCRIT 41.2 % (37.9-51.0); HEMOGLOBIN 13.5 g/dL (13.5-17.0); MEAN CORPUSCULAR HGB CONC 32.8 g/dL (32.0-36.0); MEAN CORPUSCULAR VOLUME 80 fl (80-97); MONOCYTES % (AUTO) 10.3 % (3-13); PLATELET COUNT 194 10^3/uL (150-450); RED BLOOD COUNT 5.19 10^6/uL (4.35-5.55); RED CELL DISTRIBUTION WIDTH 15.3 % (11.5-14.0); SEGMENTED NEUTROPHILS % (AUTO) 36.9 % (42-78); TOTAL CELLS COUNTED % (AUTO) 100 %; WHITE BLOOD COUNT 5.3 10^3/uL (4.0-10.5)
[2017-11-14 15:11] LABS: INTERNATIONAL RATION (INR) 0.86; PROTHROMBIN TIME 12.1 SEC (11.4-15.4)
[2017-11-14 15:19] LABS: ALANINE AMINOTRANSFERASE 65 U/L (21-72); ALBUMIN 4.8 g/dL (3.5-5.0); ALKALINE PHOSPHATASE 115 U/L (38-126); ANION GAP 14 (5-19); ASPARTATE AMINO TRANSFERASE 62 U/L (17-59); BILIRUBIN,DIRECT 0.3 mg/dL (0.0-0.4); BILIRUBIN,TOTAL 0.4 mg/dL (0.2-1.3); BLOOD UREA NITROGEN 5 mg/dL (7-20); CALCIUM 9.9 mg/dL (8.4-10.2); CARBON DIOXIDE 28 mmol/L (22-30); CHLORIDE 99 mmol/L (98-107); GLUCOSE 76 mg/dL (75-110); POTASSIUM 4.6 mmol/L (3.6-5.0); SODIUM 140.6 mmol/L (137-145); TOTAL PROTEIN 8.6 g/dL (6.3-8.2)
[2017-11-14 15:22] LABS: APPEARANCE,URINE CLEAR; BILIRUBIN,URINE NEGATIVE (NEGATIVE); COLOR,URINE YELLOW; GLUCOSE, URINE NEGATIVE (NEGATIVE); KETONES,URINE NEGATIVE (NEGATIVE); LEUKOCYTE ESTERASE,URINE NEGATIVE (NEGATIVE); NITRITE,URINE NEGATIVE (NEGATIVE); PROTEIN,URINE NEGATIVE (NEGATIVE); URINE SPECIFIC GRAVITY 1.008; UROBILINOGEN,URINE NEGATIVE mg/dL (<2.0)
[2017-11-14] MEDS ORDERED: HYDROMORPHONE HCL INJ/PF 2 MG/ML AMPULE IV ONE (15:25)
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
--- NOTE | 2017-11-14 16:22 | RADIOLOGY REPORT (SQ) ---
EXAM DESCRIPTION: CT HEAD WITHOUT COMPLETED DATE/TIME: 11/14/2017 4:13 pm REASON FOR STUDY: ONTIVEROS, h/o bleed COMPARISON: 12/31/2016 TECHNIQUE: Axial images acquired through the brain without intravenous contrast. Images reviewed wi th bone, brain and subdural windows. Additional sagittal and coronal reconstructions were generated. Images stored on PACS. All CT scanners at this facility use dose modulation, iterative reconstruction, and/or weight based d osing when appropriate to reduce radiation dose to as low as reasonably achievable (ALARA). [facility]: Dose Right [facility]: CareDose [facility]: Dose Right [facility]: Teradose 4D [facility]: Sift RADIATION DOSE: CT Rad equipment meets quality standard of care and radiation dose reduction techniq ues were employed. CTDIvol: 53.2 mGy. DLP: 964 mGy-cm. mGy. LIMITATIONS: None. FINDINGS: VENTRICLES: Normal size and contour. CEREBRUM: No masses. No hemorrhage. No midline shift. No evidence for acute infarction. Normal gra y/white matter differentiation. No areas of low density in the white matter. CEREBELLUM: No masses. No hemorrhage. No alteration of density. No evidence for acute infarction. EXTRAAXIAL SPACES: No fluid collections. No masses. ORBITS AND GLOBE: No intra- or extraconal masses. Normal contour of globe without masses. CALVARIUM: No fracture. PARANASAL SINUSES: No fluid or mucosal thickening. SOFT TISSUES: No mass or hematoma. OTHER: No other significant finding. IMPRESSION: NORMAL BRAIN CT WITHOUT CONTRAST. EVIDENCE OF ACUTE STROKE: NO. COMMENT: Quality ID # [id number]: Final reports with documentation of one or more dose reduction techniques (e.g., Automated exposure control, adjustment of the mA and/or kV according to patient size, use of iterative reconstruction technique) TECHNICAL DOCUMENTATION: JOB ID: [id number] [email or web address]- All Rights Reserved Reading location - IP/workstation name: [email or web address]
[2017-11-14] MEDS ORDERED: LORAZEPAM INJ 2 MG/1 ML VIAL IV ONE (17:38)
--- NOTE | 2017-11-14 18:41 | RADIOLOGY REPORT (SQ) ---
EXAM DESCRIPTION: MRI LUMBAR SPINE WITHOUT COMPLETED DATE/TIME: 11/14/2017 6:21 pm REASON FOR STUDY: lumbar pain-right rad symptoms COMPARISON: None. TECHNIQUE: Sagittal and Axial imaging includes T1, T2, STIR and gradient echo sequences. Coronal T2/ HASTE imaging. LIMITATIONS: None. FINDINGS: VISUALIZED UPPER ABDOMEN: Limited evaluation. No acute or suspicious findings suggested. SEGMENTATION: No transitional anatomy. The lowest well-developed disc space is labeled L5-S1. ALIGNMENT: Anatomic. VERTEBRAE: Intact. BONE MARROW: Normal. No marrow replacement or reactive changes. DISC SIGNAL: Normal. No significant abnormal signal or loss of height. POSTERIOR ELEMENTS: Generally intact. No pars defect evident. HARDWARE: None in the spine. CORD AND CONUS: Normal in size and signal intensity. Conus at the appropriate level. SOFT TISSUES: No aortic aneurysm seen. No bulky retroperitoneal adenopathy or mass. No paraspinal mas s or fluid. L1-L2: No significant spinal stenosis or exit foraminal stenosis. L2-L3: No significant spinal stenosis or exit foraminal stenosis. L3-L4: No significant spinal stenosis or exit foraminal stenosis. L4-L5: Mild disc bulging is identified at the L4-L5 disc space level with a slightly asymmetric compo nent centrally and to the right of midline which could represent a broad-based disc protrusion. Ther e is impingement on the thecal sac especially to the right of the midline without significant spinal stenosis. There is mild exit foraminal stenosis on the right. L5-S1: No significant spinal stenosis or exit foraminal stenosis. LOWER THORACIC: Incompletely imaged. No stenosis seen. SACRUM: Visualized upper sacrum intact. OTHER: No other significant findings. IMPRESSION: Mild disc bulging is identified at the L4-L5 disc space level as noted above with a slig htly asymmetric component centrally and to the right of midline which could represent a broad-based d isc protrusion. There is impingement on the thecal sac especially to the right of midline without si gnificant spinal stenosis. There is mild exit foraminal stenosis on the right. No other significant spinal stenosis or exit foraminal stenosis. Other findings as noted above. TECHNICAL DOCUMENTATION: JOB ID: [id number] [employer]- All Rights Reserved Reading location - IP/workstation name: [email or web address]
[2017-11-14 21:04] VITALS: BP 154/86
== END 2017-11-14 21:08 | disposition home or self-care (01) ==
LOC: ER 13:03
DX: M54.9 Dorsalgia, unspecified (principal); R51 Headache; M54.2 Cervicalgia; I10 Essential (primary) hypertension; Z87.442 Personal history of urinary calculi; Z90.49 Acquired absence of other specified parts of digestive tract; Z88.0 Allergy status to penicillin
CPT/HCPCS: 99284; 36415; 85025; 85610; 80053; 81001; 72148; 70450; J1170; J2060

== ENCOUNTER 2017-12-08 22:46 | Emergency (ER) | payer MEDICARE, OTHER ==
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
[2017-12-09] MEDS ORDERED: OXYCODONE HCL IR 5 MG TABLET PO ONE (01:02)
[2017-12-09] MEDS ORDERED: ACETAMINOPHEN 325 MG TABLET PO ONE (01:02)
[2017-12-09 01:49] LABS: ANION GAP 12 (5-19); BLOOD UREA NITROGEN 12 mg/dL (7-20); CALCIUM 9.3 mg/dL (8.4-10.2); CARBON DIOXIDE 26 mmol/L (22-30); CHLORIDE 103 mmol/L (98-107); GLUCOSE 102 mg/dL (75-110); POTASSIUM 4.3 mmol/L (3.6-5.0)
--- NOTE | 2017-12-09 02:18 | RADIOLOGY REPORT (SQ) ---
EXAM DESCRIPTION: CT ABDOMEN PELVIS WITH IV CONTRAST COMPLETED DATE/TME: 12/09/2017 00:47 CLINICAL HISTORY: 42 years, Male, R inguinal pain, concern for hernia COMPARISON: None. TECHNIQUE: Axial CT images were obtained of the abdomen and pelvis after the administration of IV contrast. Sagittal and coronal reformats were performed. [facility] 1954 Images stored on PACS. All CT scanners at this facility use dose modulation, iterative reconstruction, and/or weight based dosing when appropriate to reduce radiation dose to as low as reasonably achievable (ALARA). [facility]: Dose Right [facility]: CareDose [facility]: Dose Right [facility]: Teradose 4D [facility]: Inspro LIMITATIONS: None. FINDINGS: Lung bases are clear. Cholecystectomy. The liver, pancreas, spleen, and adrenal glands are unremarkable. There are bilateral nonobstructing stones which measure up to 5 mm. There is no intraperitoneal free air or fluid. There is no lymphadenopathy. The abdominal aorta is unremarkable. No hernia is identified. The stomach and small bowel are unremarkable. The appendix is not uniquely identified, however there are no inflammatory changes within the right lower quadrant. The colon is unremarkable. The urinary bladder and prostate are normal. There are no lytic or blastic bone lesions. IMPRESSION: No evidence of a hernia. No acute findings. Bilateral nonobstructing nephrolithiasis. TECHNICAL DOCUMENTATION: Quality ID # [id number]: Final reports with documentation of one or more dose reduction techniques (e.g., Automated exposure control, adjustment of the mA and/or kV according to patient size, use of iterative reconstruction technique) 2010 [employer]- All Rights Reserved
[2017-12-09] MEDS ORDERED: HYDROMORPHONE HCL INJ/PF 2 MG/ML AMPULE IV ONE ×2 (02:56→04:08)
[2017-12-09] MEDS ORDERED: NORMAL SALINE 1000 ML 1,000 ML IV ONE (03:46)
[2017-12-09 04:15] LABS: APPEARANCE,URINE CLEAR; BILIRUBIN,URINE NEGATIVE (NEGATIVE); COLOR,URINE YELLOW; GLUCOSE, URINE NEGATIVE (NEGATIVE); KETONES,URINE NEGATIVE (NEGATIVE); LEUKOCYTE ESTERASE,URINE NEGATIVE (NEGATIVE); NITRITE,URINE NEGATIVE (NEGATIVE); PROTEIN,URINE NEGATIVE (NEGATIVE); URINE SPECIFIC GRAVITY 1.049; UROBILINOGEN,URINE NEGATIVE mg/dL (<2.0)
[2017-12-09 04:36] VITALS: BP 135/82
== END 2017-12-09 04:35 | disposition home or self-care (01) ==
LOC: ER 22:46
DX: R10.32 Left lower quadrant pain (principal); M25.551 Pain in right hip; I10 Essential (primary) hypertension; Z88.0 Allergy status to penicillin; Z88.8 Allergy status to other drugs, medicaments and biological substances; Z88.5 Allergy status to narcotic agent; Z87.442 Personal history of urinary calculi; Z87.19 Personal history of other diseases of the digestive system; Z90.49 Acquired absence of other specified parts of digestive tract
CPT/HCPCS: 96376; 99284; 96374; 36415; 80048; 81001; 74177; A9270 ×2; J1170; J7030

== ENCOUNTER 2017-12-20 05:54 | Inpatient (IN) | payer MEDICARE, OTHER ==
[2017-12-13 10:43] LABS: HEMATOCRIT 40.8 % (37.9-51.0); HEMOGLOBIN 13.6 g/dL (13.5-17.0); MEAN CORPUSCULAR HGB CONC 33.3 g/dL (32.0-36.0); MEAN CORPUSCULAR VOLUME 78 fl (80-97); PLATELET COUNT 223 10^3/uL (150-450); RED BLOOD COUNT 5.23 10^6/uL (4.35-5.55); RED CELL DISTRIBUTION WIDTH 15.1 % (11.5-14.0)
[2017-12-13 10:43] LABS: APPEARANCE,URINE CLEAR; BILIRUBIN,URINE NEGATIVE (NEGATIVE); COLOR,URINE YELLOW; GLUCOSE, URINE NEGATIVE (NEGATIVE); KETONES,URINE NEGATIVE (NEGATIVE); LEUKOCYTE ESTERASE,URINE NEGATIVE (NEGATIVE); NITRITE,URINE NEGATIVE (NEGATIVE); PROTEIN,URINE NEGATIVE (NEGATIVE); URINE SPECIFIC GRAVITY 1.024; UROBILINOGEN,URINE NEGATIVE mg/dL (<2.0)
[2017-12-13 11:00] LABS: ANION GAP 10 (5-19); BLOOD UREA NITROGEN 11 mg/dL (7-20); CALCIUM 9.5 mg/dL (8.4-10.2); CARBON DIOXIDE 29 mmol/L (22-30); CHLORIDE 102 mmol/L (98-107); GLUCOSE 95 mg/dL (75-110); POTASSIUM 4.1 mmol/L (3.6-5.0); SODIUM 141.3 mmol/L (137-145)
--- NOTE | 2017-12-13 22:19 | EKG REPORT ---
SEVERITY:- NORMAL ECG - SINUS RHYTHM : Confirmed by: Bharat Lopez 13-Dec-2017 22:17:47
[~2017-12-20 05:54] MED LIST changes: -BUPIVACAINE HCL 0.5 % INJ/PF 30 ML SDV ONE; +LACTATED RINGERS 1000 ML IV PRN
[2017-12-20] MEDS ORDERED: PROMETHAZINE HCL INJ 25 MG/1 ML VIAL IV PRN ×2 (07:47)
[2017-12-20] MEDS ORDERED: FENTANYL CITRATE INJ/PF 100 MCG/2 ML AMPUL IV PRN ×3 (07:47)
[2017-12-20] MEDS ORDERED: MIDAZOLAM 2 MG/2 ML INJ ONE (08:13)
[2017-12-20] MEDS ORDERED: FENTANYL CITRATE INJ/PF 100 MCG/2 ML AMPUL ONE (08:13)
[2017-12-20] MEDS ORDERED: PROPOFOL INJ 200 MG/20 ML VIAL IV ONE (08:13)
[2017-12-20] MEDS ORDERED: BUPIVACAINE HCL 0.5%-EPI 1:200000 INJ/PF 30 ML VIAL ONE (08:44)
--- NOTE | 2017-12-20 09:36 | Operative Report ---
Operative Report DATE OF SURGERY: 12/20/17 PREOPERATIVE DIAGNOSIS: Painful left partial foot amputation OPERATION: Left below-knee amputation SURGEON: PHUC CRABTREE ANESTHESIA: GA TISSUE REMOVED OR ALTERED: Left lower extremity to pathology ESTIMATED BLOOD LOSS: 50 PROCEDURE: With the patient supine Afrin table the left lower extremities prepped and draped in sterile fashion. Limb was elevated for exsanguination tourniquet inflated to 280 torr. A plan is made to transect the tibia 11 cm distal to the tibial tubercle. A small amount incision was made circumferentially around the calf with a distal posterior tail to allow a posterior flap. The soft tissue transection continues identifying the anterior tibial, posterior tibial, and peroneal neurovascular structures which were suture- ligated. The tibia was transected 11 cm distal to the tibial tubercle with an anterior flange. The fibula was transected just proximal to this. The posterior dissection continues and develops a posterior flap to the myotendinous junction of the gastrocsoleus complex. The lower extremity is then delivered from the field. The tourniquet is deflated. Hemostasis obtained with electrocautery. A myoplasty was then performed using Vicryl. The remainder the wound is closed using 0 Vicryl and oh. A sterile compressive dressings applied. The patient was turned to PACU in satisfactory condition.
[2017-12-20] MEDS ORDERED: DEXAMETHASONE SOD PHOSPHATE INJ 4 MG/1 ML VIAL ONE (09:42)
[2017-12-20] MEDS ORDERED: ONDANSETRON HCL INJ/PF 4 MG/2 ML SDV ONE (09:42)
[2017-12-20] MEDS ORDERED: SUCCINYLCHOLINE CHLORIDE INJ 200 MG/10 ML VIAL ONE (09:42)
[2017-12-20] MEDS: FENTANYL CITRATE INJ/PF 100 MCG/2 ML AMPUL ONE ×2 (09:48→09:55)
[2017-12-20] MEDS: MEPERIDINE HCL/PF INJ 25 MG/1 ML DISP.SYRIN ONE ×2 (09:49→09:59)
[2017-12-20] MEDS ORDERED: RINGERS SOLUTION,LACTATED 1,000 ML IV PRN (10:09)
[2017-12-20] MEDS ORDERED: ONDANSETRON 4 MG TAB.RAPDIS PO PRN (10:14)
[2017-12-20] MEDS: HYDROMORPHONE HCL INJ/PF 2 MG/ML AMPULE ONE ×4 (10:19→11:28)
[2017-12-20] MEDS ORDERED: OXYCODONE HCL IR 5 MG TABLET PO PRN (10:27)
[2017-12-20] MEDS ORDERED: ACETAMINOPHEN 1,000 MG/100 ML RTUPB IV ONE (10:58)
[2017-12-20] MEDS ORDERED: IBUPROFEN 800 MG in NORMAL SALINE 250 ML IV ONE (11:00)
[2017-12-20] MEDS ORDERED: DIAZEPAM INJ 10 MG/2 ML DISP.SYRIN ONE (11:00)
[2017-12-20] MEDS ORDERED: HYDROMORPHONE HCL INJ/PF 2 MG/ML AMPULE ONE (12:38)
[2017-12-20] MEDS: HYDROMORPHONE HCL INJ/PF 2 MG/ML AMPULE IV PRN ×3 (12:40→21:12)
[2017-12-20] MEDS ORDERED: CLINDAMYCIN 600 MG/D5W RTU 600 MG/50 ML RTUPB IV SCH (14:00)
[2017-12-20] MEDS: IBUPROFEN 800 MG in DEXTROSE 5%-WATER 250 ML IV SCH ×2 (14:21→17:00)
[2017-12-20] MEDS: OXYCODONE HCL IR 5 MG TABLET PO PRN ×2 (14:30→19:59)
[2017-12-20] MEDS: CLINDAMYCIN 600 MG/D5W RTU 600 MG/50 ML RTUPB IV SCH ×2 (14:31→21:12)
[2017-12-20] MEDS ORDERED: DIAZEPAM 5 MG TABLET PO PRN (20:31)
[2017-12-21] MEDS: HYDROMORPHONE HCL INJ/PF 2 MG/ML AMPULE IV PRN ×4 (00:54→21:05)
[2017-12-21] MEDS: IBUPROFEN 800 MG in DEXTROSE 5%-WATER 250 ML IV SCH ×3 (01:00→18:44)
[2017-12-21] MEDS: OXYCODONE HCL IR 5 MG TABLET PO PRN ×4 (01:49→22:29)
[2017-12-21 06:14] LABS: HEMATOCRIT 36.1 % (37.9-51.0); HEMOGLOBIN 11.9 g/dL (13.5-17.0); MEAN CORPUSCULAR VOLUME 79 fl (80-97); PLATELET COUNT 170 10^3/uL (150-450); RED BLOOD COUNT 4.58 10^6/uL (4.35-5.55); RED CELL DISTRIBUTION WIDTH 15.5 % (11.5-14.0)
--- NOTE | 2017-12-21 06:27 | PDOC PROGRESS REPORT ---
Subjective Progress Note for:: 12/21/17 Reason For Visit: Z89.439 ACQUIRED ABSENCE OF UNSPECIFIED FOOT 42-year-old black male status post left below-knee amputation postop day 1. Patient with considerable discomfort overnight. Did not receive physical therapy. Physical Exam Vital Signs: Temp Pulse Resp BP Pulse Ox 36.7 C 82 18 141/82 H 100 12/21/17 04:56 12/21/17 04:56 12/21/17 04:56 12/21/17 04:56 12/21/17 04:56 Intake & Output 12/19/17 12/20/17 12/21/17 06:59 06:59 06:59 Intake Total 0 2606 Output Total 1050 Balance 0 1556 Weight 103.7 kg General appearance: PRESENT: no acute distress, mild distress Head exam: PRESENT: normocephalic Respiratory exam: PRESENT: unlabored Cardiovascular exam: PRESENT: RRR GI/Abdominal exam: PRESENT: soft Rectal exam: PRESENT: deferred Extremities exam: PRESENT: other - Right lower dressing clean dry and intact. It has been released posterior laterally by myself because of patient's complaints of tightness. Neurological exam: PRESENT: alert, awake, oriented to person, oriented to place , oriented to time, oriented to situation. ABSENT: motor sensory deficit Psychiatric exam: PRESENT: appropriate affect, normal mood. ABSENT: homicidal ideation, suicidal ideation Skin exam: PRESENT: dry, intact, warm. ABSENT: cyanosis, rash Results Laboratory Results: 12/21/17 05:38 12/20/17 12/21/17 06:42 05:38 WBC 14.0 H RBC 4.58 Hgb 11.9 L Hct 36.1 L MCV 79 L MCH 26.0 L MCHC 33.0 RDW 15.5 H Plt Count 170 Potassium 4.2 Assessment & Plan - Diagnosis (1) Below knee amputation status Qualifiers: Laterality: left Qualified Code(s): Z89.512 - Acquired absence of left leg below knee Is this a current diagnosis for this admission?: Yes Plan: Patient to be mobilized with physical therapy today. Analgesia as needed. Anticipate discharge home tomorrow with home health services. - Time Time Spent with patient: 15-24 minutes Anticipated discharge: Home with Homehealth Within: within 24 hours
[2017-12-21 06:32] LABS: ANION GAP 15 (5-19); BLOOD UREA NITROGEN 13 mg/dL (7-20); CALCIUM 8.7 mg/dL (8.4-10.2); CARBON DIOXIDE 19 mmol/L (22-30); CHLORIDE 105 mmol/L (98-107); GLUCOSE 88 mg/dL (75-110); POTASSIUM 4.4 mmol/L (3.6-5.0); SODIUM 138.7 mmol/L (137-145)
[2017-12-21] MEDS: ASPIRIN 81 MG TABLET, ENT COATED PO SCH (09:05)
[2017-12-21] MEDS ORDERED: ASPIRIN 81 MG TABLET, ENT COATED PO SCH (10:00)
[2017-12-21] MEDS ORDERED: LOSARTAN POTASSIUM 25 MG TABLET PO SCH (13:30)
[2017-12-21] MEDS: HYDROCHLOROTHIAZIDE 12.5 MG TABLET PO SCH (14:11)
[2017-12-21] MEDS: LISINOPRIL 10 MG TABLET PO SCH (14:11)
[2017-12-21] MEDS ORDERED: HYDROMORPHONE HCL INJ/PF 2 MG/ML AMPULE IV ONE (15:00)
[2017-12-21] MEDS: OXYCODONE HCL SR 10 MG TABLET PO SCH (21:04)
[2017-12-22] MEDS: IBUPROFEN 800 MG in DEXTROSE 5%-WATER 250 ML IV SCH ×2 (02:09→10:10)
[2017-12-22] MEDS: HYDROMORPHONE HCL INJ/PF 2 MG/ML AMPULE IV PRN ×2 (03:09→09:20)
[2017-12-22] MEDS: OXYCODONE HCL IR 5 MG TABLET PO PRN ×2 (04:31→11:16)
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
[2017-12-22] MEDS ORDERED: TELMISARTAN 20 MG PO SCH (10:00)
[2017-12-22] MEDS ORDERED: (PENDING PHARMACY ID) (Lisinopril/Hydrochlorothiazide [Lisinopril-Hctz 10-12.5 Mg Tab] 1 E PO SCH (10:00)
[2017-12-22] MEDS: ASPIRIN 81 MG TABLET, ENT COATED PO SCH (10:12)
[2017-12-22] MEDS: OXYCODONE HCL SR 10 MG TABLET PO SCH (10:13)
[2017-12-22] MEDS: HYDROCHLOROTHIAZIDE 12.5 MG TABLET PO SCH (10:13)
[2017-12-22] MEDS: LISINOPRIL 10 MG TABLET PO SCH (10:15)
[2017-12-22 13:11] VITALS: BP 161/98
== END 2017-12-22 13:20 | disposition home or self-care (01) | DRG 476 ==
LOC: INOR 05:54 → EDSTATUS 09:00 → 4S 13:18
PROVIDERS: ADMIT Orthopaedic Surgery; ATTEND Orthopaedic Surgery
PROC: 0Y6J0Z1 Detachment at Left Lower Leg, High, Open Approach (ICD-10-PCS; principal; 2017-12-20 08:15)
DX: T87.89 Other complications of amputation stump (principal); M79.672 Pain in left foot; G89.29 Other chronic pain; Z89.432 Acquired absence of left foot; I10 Essential (primary) hypertension; Z79.899 Other long term (current) drug therapy; Z88.0 Allergy status to penicillin; Z88.8 Allergy status to other drugs, medicaments and biological substances
CPT/HCPCS: 01482; 36415; 80048; 81001; 84132; 85027; 88307; 88311; 93005; 93010; G8978-GP; G8979-GP; J0131; J0330; J1100; J1170; J1741; J2175; J2250; J2405; J2704; J3010; J3360; J3490; J7050; J7060; J7120

== ENCOUNTER 2018-01-15 09:32 | Emergency (ER) | payer MEDICARE ==
[2018-01-15] MEDS ORDERED: ONDANSETRON 4 MG TAB.RAPDIS PO ONE (09:45)
[2018-01-15] MEDS ORDERED: ONDANSETRON 4 MG TAB.RAPDIS ONE (09:46)
[2018-01-15] MEDS ORDERED: LIDOCAINE 5% (700 MG) TRANSDERMAL ADH..PATCH TP ONE (10:14)
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
--- NOTE | 2018-01-15 11:27 | RADIOLOGY REPORT (SQ) ---
EXAM DESCRIPTION: KNEE LEFT 4 VIEW COMPLETED DATE/TIME: 01/15/2018 10:46 am REASON FOR STUDY: hx of bka fall hit stump eval distal tip COMPARISON: None. NUMBER OF VIEWS: Four views. TECHNIQUE: AP, lateral, and both oblique radiographic images acquired of the left knee. LIMITATIONS: None. FINDINGS: MINERALIZATION: Normal. BONES: No acute fracture or dislocation. No worrisome bone lesions. Distal tibia and fibula at the amputation site intact. JOINT: No effusion. SOFT TISSUES: No soft tissue swelling. No radio-opaque foreign body. OTHER: Post below the knee amputation. IMPRESSION: No acute fracture. TECHNICAL DOCUMENTATION: JOB ID: [id number] [employer]- All Rights Reserved Reading location - IP/workstation name: [email or web address]
[2018-01-15 12:06] VITALS: BP 134/79
== END 2018-01-15 12:06 | disposition home or self-care (01) ==
LOC: ER 09:32
DX: M79.605 Pain in left leg (principal); I10 Essential (primary) hypertension; Z89.512 Acquired absence of left leg below knee; Z88.0 Allergy status to penicillin; Z88.6 Allergy status to analgesic agent; Z87.442 Personal history of urinary calculi; Z90.49 Acquired absence of other specified parts of digestive tract
CPT/HCPCS: 99283; 73564; A9270; S0119

== ENCOUNTER 2018-06-03 01:36 | Emergency (ER) | payer OTHER, MEDICARE ==
[2018-06-03] MEDS ORDERED: ONDANSETRON HCL INJ/PF 4 MG/2 ML SDV IV ONE (02:47)
[2018-06-03] MEDS ORDERED: FENTANYL CITRATE INJ/PF 100 MCG/2 ML AMPUL IV ONE (02:47)
[2018-06-03] MEDS ORDERED: NORMAL SALINE 1000 ML 1,000 ML IV ONE (02:49)
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
--- NOTE | 2018-06-03 03:16 | RADIOLOGY REPORT (SQ) ---
EXAM DESCRIPTION: CT ABDOMEN PELVIS WITHOUT IV CONTRAST COMPLETED DATE/TME: 06/03/2018 02:48 CLINICAL HISTORY: 43 years, Male, right flank pain,vomiting, hematuria COMPARISON: 12/09/2017 CT TECHNIQUE: 315 Images stored on PACS. All CT scanners at this facility use dose modulation, iterative reconstruction, and/or weight based dosing when appropriate to reduce radiation dose to as low as reasonably achievable (ALARA). [facility]: Dose Right [facility]: CareDose [facility]: Dose Right [facility]: Teradose 4D [facility]: [employer] LIMITATIONS: None. FINDINGS: Limited evaluation of the lung bases is unremarkable. Osseous structures are grossly intact. The visualized liver, spleen, adrenal glands, pancreas are unremarkable. Status post cholecystectomy. Nonobstructing renal calculi bilaterally. No obstructing calculus or hydronephrosis. Large amount of stool in the colon. No gross evidence for bowel obstruction. The appendix is not well seen. No pericecal inflammation to suggest acute appendicitis. No free air or free fluid. Urinary bladder incompletely distended but otherwise unremarkable IMPRESSION: Nonobstructing renal calculi bilaterally. No obstructing calculus or hydronephrosis. Large amount of stool in the colon. TECHNICAL DOCUMENTATION: Quality ID # [id number]: Final reports with documentation of one or more dose reduction techniques (e.g., Automated exposure control, adjustment of the mA and/or kV according to patient size, use of iterative reconstruction technique) copyright 2011 [employer]- All Rights Reserved
[2018-06-03 03:38] LABS: ABSOLUTE BASOPHILS # (AUTO) 0.1 10^3/uL (0.0-0.2); ABSOLUTE EOSINOPHILS # (AUTO) 0.2 10^3/uL (0.0-0.6); ABSOLUTE LYMPHOCYTES (AUTO) 3.4 10^3/uL (0.5-4.7); ABSOLUTE MONOCYTES (AUTO) 0.5 10^3/uL (0.1-1.4); ABSOLUTE NEUT (AUTO) 4.1 10^3/uL (1.7-8.2); BASOPHILS % (AUTO) 1.1 % (0-2); EOSINOPHILS % (AUTO) 2.3 % (0-6); HEMATOCRIT 39.7 % (37.9-51.0); HEMOGLOBIN 13.3 g/dL (13.5-17.0); LYMPHOCYTES % (AUTO) 40.8 % (13-45); MEAN CORPUSCULAR HEMOGLOBIN 26.3 pg (27.0-33.4); MEAN CORPUSCULAR HGB CONC 33.5 g/dL (32.0-36.0); MEAN CORPUSCULAR VOLUME 79 fl (80-97); MONOCYTES % (AUTO) 6.2 % (3-13); PLATELET COUNT 211 10^3/uL (150-450); RED BLOOD COUNT 5.05 10^6/uL (4.35-5.55); RED CELL DISTRIBUTION WIDTH 17.4 % (11.5-14.0); SEGMENTED NEUTROPHILS % (AUTO) 49.6 % (42-78); TOTAL CELLS COUNTED % (AUTO) 100 %; WHITE BLOOD COUNT 8.3 10^3/uL (4.0-10.5)
[2018-06-03] MEDS ORDERED: ONDANSETRON 4 MG TAB.RAPDIS PO ONE (03:40)
[2018-06-03] MEDS ORDERED: HYDROMORPHONE HCL INJ/PF 2 MG/ML AMPULE IM ONE (03:40)
[2018-06-03 04:14] LABS: ALANINE AMINOTRANSFERASE 34 U/L (21-72); ALBUMIN 4.5 g/dL (3.5-5.0); ALKALINE PHOSPHATASE 107 U/L (38-126); ANION GAP 9 (5-19); ASPARTATE AMINO TRANSFERASE 25 U/L (17-59); BILIRUBIN,DIRECT 0.2 mg/dL (0.0-0.4); BILIRUBIN,TOTAL 0.4 mg/dL (0.2-1.3); BLOOD UREA NITROGEN 10 mg/dL (7-20); CALCIUM 9.3 mg/dL (8.4-10.2); CARBON DIOXIDE 26 mmol/L (22-30); CHLORIDE 105 mmol/L (98-107); GLUCOSE 87 mg/dL (75-110); SODIUM 139.9 mmol/L (137-145); TOTAL PROTEIN 7.7 g/dL (6.3-8.2)
[2018-06-03] MEDS ORDERED: HYDROMORPHONE HCL INJ/PF 2 MG/ML AMPULE IV ONE (04:56)
[2018-06-03 05:02] LABS: APPEARANCE,URINE CLEAR; BILIRUBIN,URINE NEGATIVE (NEGATIVE); COLOR,URINE YELLOW; GLUCOSE, URINE NEGATIVE (NEGATIVE); KETONES,URINE NEGATIVE (NEGATIVE); LEUKOCYTE ESTERASE,URINE NEGATIVE (NEGATIVE); NITRITE,URINE NEGATIVE (NEGATIVE); PROTEIN,URINE NEGATIVE (NEGATIVE); URINE SPECIFIC GRAVITY 1.018
[2018-06-03 05:47] VITALS: BP 151/105
== END 2018-06-03 06:02 | disposition home or self-care (01) ==
LOC: ER 01:36
DX: R10.9 Unspecified abdominal pain (principal); R11.10 Vomiting, unspecified; R19.7 Diarrhea, unspecified; I10 Essential (primary) hypertension; Z87.19 Personal history of other diseases of the digestive system; G89.29 Other chronic pain; Z79.899 Other long term (current) drug therapy; Z88.0 Allergy status to penicillin; Z88.8 Allergy status to other drugs, medicaments and biological substances; Z88.5 Allergy status to narcotic agent; Z90.49 Acquired absence of other specified parts of digestive tract
CPT/HCPCS: 99284; 96372; 96361; 96374; 96375; 36415; 85025; 80053; 81001; 74176; J3010; J1170; J2405; J7030

== ENCOUNTER 2018-06-24 19:26 | Emergency (ER) | payer OTHER, MEDICARE ==
[2018-06-24] MEDS ORDERED: HYDROMORPHONE HCL 2 MG TABLET PO ONE (20:13)
--- NOTE | 2018-06-24 20:55 | RADIOLOGY REPORT (SQ) ---
4 VIEWS OF THE LEFT KNEE HISTORY: Knee injury. COMPARISON: 01/15/2018 FINDINGS: Left BKA is noted with stable postsurgical changes. No acute fracture or dislocation. No knee joint effusion is seen. There is mild soft tissue swelling. IMPRESSION: No acute findings.
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
[2018-06-24 21:26] VITALS: BP 177/93
== END 2018-06-24 21:26 | disposition home or self-care (01) ==
LOC: ER 19:26
DX: S83.92XA Sprain of unspecified site of left knee, initial encounter (principal); M25.562 Pain in left knee; X50.0XXA Overexertion from strenuous movement or load, initial encounter; Z89.512 Acquired absence of left leg below knee; Z97.14 Presence of artificial left leg (complete) (partial); I10 Essential (primary) hypertension; G89.29 Other chronic pain; Z79.899 Other long term (current) drug therapy; Z85.830 Personal history of malignant neoplasm of bone
CPT/HCPCS: 99283

== ENCOUNTER 2018-11-06 22:14 | Emergency (ER) | payer OTHER, MEDICARE ==
[2018-11-06] MEDS ORDERED: HYDROMORPHONE HCL INJ/PF 2 MG/ML AMPULE IV ONE (23:54)
[2018-11-06] MEDS ORDERED: ONDANSETRON HCL INJ/PF 4 MG/2 ML SDV IV ONE (23:55)
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
[2018-11-07 00:41] LABS: ABSOLUTE BASOPHILS # (AUTO) 0.1 10^3/uL (0.0-0.2); ABSOLUTE EOSINOPHILS # (AUTO) 0.1 10^3/uL (0.0-0.6); ABSOLUTE MONOCYTES (AUTO) 0.5 10^3/uL (0.1-1.4); ABSOLUTE NEUT (AUTO) 5.7 10^3/uL (1.7-8.2); BASOPHILS % (AUTO) 1.1 % (0-2); EOSINOPHILS % (AUTO) 1.2 % (0-6); HEMATOCRIT 44.1 % (37.9-51.0); HEMOGLOBIN 14.7 g/dL (13.5-17.0); MEAN CORPUSCULAR HEMOGLOBIN 26.7 pg (27.0-33.4); MEAN CORPUSCULAR HGB CONC 33.4 g/dL (32.0-36.0); MEAN CORPUSCULAR VOLUME 80 fl (80-97); MONOCYTES % (AUTO) 5.4 % (3-13); PLATELET COUNT 215 10^3/uL (150-450); RED BLOOD COUNT 5.53 10^6/uL (4.35-5.55); RED CELL DISTRIBUTION WIDTH 15.9 % (11.5-14.0); SEGMENTED NEUTROPHILS % (AUTO) 60.3 % (42-78); TOTAL CELLS COUNTED % (AUTO) 100 %; WHITE BLOOD COUNT 9.5 10^3/uL (4.0-10.5)
[2018-11-07 00:58] LABS: PROTHROMBIN TIME 13.2 SEC (11.4-15.4)
[2018-11-07 00:59] LABS: ALANINE AMINOTRANSFERASE 19 U/L (21-72); ALBUMIN 4.9 g/dL (3.5-5.0); ALKALINE PHOSPHATASE 113 U/L (38-126); ANION GAP 13 (5-19); ASPARTATE AMINO TRANSFERASE 31 U/L (17-59); BILIRUBIN,DIRECT 0.2 mg/dL (0.0-0.4); BILIRUBIN,TOTAL 0.5 mg/dL (0.2-1.3); BLOOD UREA NITROGEN 6 mg/dL (7-20); CALCIUM 9.8 mg/dL (8.4-10.2); CARBON DIOXIDE 24 mmol/L (22-30); CHLORIDE 103 mmol/L (98-107); GLUCOSE 96 mg/dL (75-110); PARTIAL THROMBOPLASTIN TIME 25.8 SEC (23.5-35.8); POTASSIUM 3.7 mmol/L (3.6-5.0); SODIUM 140.1 mmol/L (137-145); TOTAL PROTEIN 9.1 g/dL (6.3-8.2)
[2018-11-07] MEDS ORDERED: HYDROMORPHONE HCL INJ/PF 2 MG/ML AMPULE IV ONE (01:01)
[2018-11-07 01:05] VITALS: BP 165/101
--- NOTE | 2018-11-07 03:23 | RADIOLOGY REPORT (SQ) ---
Lumbar spine five view on 11/06/2018 at 11:49 PM CLINICAL INDICATION: Incontinence, history of trauma COMPARISON: CT from 06/03/2018 FINDINGS: The lumbar spine is well aligned. Disc space height is well-maintained. There are no fractures. No significant degenerative changes are noted. There is some subtle sclerosis in the bilateral femoral heads consistent with changes of avascular necrosis in the bilateral hips. No other bony abnormality is noted. IMPRESSION: 1. No acute abnormality. 2. 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
== END 2018-11-07 01:15 | disposition short-term general hospital (02) ==
LOC: ER 22:14
DX: G83.4 Cauda equina syndrome (principal); M54.5 Low back pain; R32 Unspecified urinary incontinence; R20.2 Paresthesia of skin; I10 Essential (primary) hypertension; Z98.890 Other specified postprocedural states; Z88.0 Allergy status to penicillin; Z88.8 Allergy status to other drugs, medicaments and biological substances; Z88.5 Allergy status to narcotic agent
CPT/HCPCS: 96376; 99285; 96374; 96375; 36415; 85025; 85610; 85730; 80053; 72110; J1170; J2405

== ENCOUNTER 2018-11-18 10:02 | Emergency (ER) | payer OTHER, MEDICARE ==
[2018-11-18] MEDS ORDERED: NORMAL SALINE 1000 ML 1,000 ML IV ONE (10:29)
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
[2018-11-18] MEDS ORDERED: HYDROMORPHONE HCL INJ/PF 2 MG/ML AMPULE IV ONE ×3 (10:33→14:11)
[2018-11-18] MEDS ORDERED: PROMETHAZINE HCL INJ 25 MG/1 ML VIAL IV ONE (10:34)
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
[2018-11-18 11:24] LABS: ABSOLUTE BASOPHILS # (AUTO) 0.1 10^3/uL (0.0-0.2); ABSOLUTE EOSINOPHILS # (AUTO) 0.3 10^3/uL (0.0-0.6); ABSOLUTE LYMPHOCYTES (AUTO) 2.7 10^3/uL (0.5-4.7); ABSOLUTE MONOCYTES (AUTO) 0.4 10^3/uL (0.1-1.4); ABSOLUTE NEUT (AUTO) 2.4 10^3/uL (1.7-8.2); BASOPHILS % (AUTO) 0.9 % (0-2); EOSINOPHILS % (AUTO) 5.6 % (0-6); HEMATOCRIT 40.3 % (37.9-51.0); HEMOGLOBIN 13.5 g/dL (13.5-17.0); MEAN CORPUSCULAR HGB CONC 33.4 g/dL (32.0-36.0); MEAN CORPUSCULAR VOLUME 81 fl (80-97); MONOCYTES % (AUTO) 7.3 % (3-13); PLATELET COUNT 158 10^3/uL (150-450); RED CELL DISTRIBUTION WIDTH 15.6 % (11.5-14.0); SEGMENTED NEUTROPHILS % (AUTO) 41.2 % (42-78); TOTAL CELLS COUNTED % (AUTO) 100 %; WHITE BLOOD COUNT 5.9 10^3/uL (4.0-10.5)
[2018-11-18 11:45] LABS: ALANINE AMINOTRANSFERASE 67 U/L (21-72); ALBUMIN 4.2 g/dL (3.5-5.0); ALKALINE PHOSPHATASE 108 U/L (38-126); ANION GAP 6 (5-19); ASPARTATE AMINO TRANSFERASE 51 U/L (17-59); BILIRUBIN,DIRECT 0.3 mg/dL (0.0-0.4); BILIRUBIN,TOTAL 0.4 mg/dL (0.2-1.3); BLOOD UREA NITROGEN 9 mg/dL (7-20); CALCIUM 9.3 mg/dL (8.4-10.2); CARBON DIOXIDE 25 mmol/L (22-30); CHLORIDE 104 mmol/L (98-107); GLUCOSE 103 mg/dL (75-110); POTASSIUM 3.9 mmol/L (3.6-5.0); TOTAL PROTEIN 7.8 g/dL (6.3-8.2)
[2018-11-18 12:00] LABS: APPEARANCE,URINE CLEAR; BILIRUBIN,URINE NEGATIVE (NEGATIVE); COLOR,URINE YELLOW; GLUCOSE, URINE NEGATIVE (NEGATIVE); KETONES,URINE NEGATIVE (NEGATIVE); LEUKOCYTE ESTERASE,URINE NEGATIVE (NEGATIVE); NITRITE,URINE NEGATIVE (NEGATIVE); PROTEIN,URINE NEGATIVE (NEGATIVE); URINE SPECIFIC GRAVITY 1.008; UROBILINOGEN,URINE NEGATIVE mg/dL (<2.0)
[2018-11-18] MEDS ORDERED: LORAZEPAM INJ 2 MG/1 ML VIAL IV ONE (12:05)
--- NOTE | 2018-11-18 13:16 | RADIOLOGY REPORT (SQ) ---
EXAM DESCRIPTION: MRI THORACIC SPINE WITHOUT COMPLETED DATE/TIME: 11/18/2018 1:05 pm REASON FOR STUDY: Loss of bowel/bladder, decreased rectal tone COMPARISON: None. TECHNIQUE: Sagittal and Axial imaging includes T1, T2, STIR and gradient echo sequences. LIMITATIONS: None. FINDINGS: LOCALIZER: No worrisome findings. ALIGNMENT: Normal. VERTEBRAE: Intact. BONE MARROW: Normal. No marrow replacement or reactive changes. HARDWARE: None in the spine. CORD: Normal in size and signal intensity. SOFT TISSUES: No soft tissue masses. THORACIC DISCS T1-T12: No significant spinal stenosis or exit foraminal stenosis. LOWER CERVICAL: Incompletely imaged. No significant spinal stenosis or exit foraminal stenosis. UPPER LUMBAR: Incompletely imaged. No significant spinal stenosis or exit foraminal stenosis. OTHER: No other significant finding. IMPRESSION: NORMAL MRI THORACIC SPINE. TECHNICAL DOCUMENTATION: JOB ID: [id number] [employer]- All Rights Reserved Reading location - IP/workstation name: [email or web address]
--- NOTE | 2018-11-18 13:18 | RADIOLOGY REPORT (SQ) ---
EXAM DESCRIPTION: MRI LUMBAR SPINE WITHOUT COMPLETED DATE/TIME: 11/18/2018 1:05 pm REASON FOR STUDY: Loss of bowel/bladder, decreased rectal tone COMPARISON: None. TECHNIQUE: Sagittal and Axial imaging includes T1, T2, STIR and gradient echo sequences. Coronal T2/ HASTE imaging. LIMITATIONS: None. FINDINGS: VISUALIZED UPPER ABDOMEN: Limited evaluation. No acute or suspicious findings suggested. SEGMENTATION: No transitional anatomy. The lowest well-developed disc space is labeled L5-S1. ALIGNMENT: Anatomic. VERTEBRAE: Intact. BONE MARROW: Normal. No marrow replacement or reactive changes. DISC SIGNAL: Mildly diminished disc signal at L4-5. POSTERIOR ELEMENTS: Right hemilaminectomy at L4-5. Mild facet arthropathy otherwise. No pars defec t. HARDWARE: None in the spine. CORD AND CONUS: Normal in size and signal intensity. Conus at the appropriate level. SOFT TISSUES: No aortic aneurysm seen. No bulky retroperitoneal adenopathy or mass. No paraspinal mas s or fluid. L1-L2: No significant spinal stenosis or exit foraminal stenosis. L2-L3: Mild posterior ligament thickening. No significant stenosis. L3-L4: Minimal left posterior ligament thickening and facet arthropathy. No stenosis. L4-L5: Operative level. Mild broad protrusion. Contact with the right L5 nerve root without mass ef fect. Mild left facet overgrowth. No significant central canal compromise otherwise. Moderate bila teral foraminal narrowing. L5-S1: No significant spinal stenosis or exit foraminal stenosis. LOWER THORACIC: Incompletely imaged. No stenosis seen. SACRUM: Visualized upper sacrum intact. OTHER: Bladder looks distended, incompletely evaluated. IMPRESSION: 1. Postoperative changes at L4-5. Mild broad protrusion is suggested here. This contacts the right L5 nerve root without high-grade impingement or central stenosis identified. Up to moderate bilatera l foraminal narrowing at L4-5. 2. Other levels are remarkable for mild degenerative change but no spinal stenosis. 3. No fracture or worrisome bone lesion or spinal malalignment. TECHNICAL DOCUMENTATION: JOB ID: [id number] 1903 [employer]- All Rights Reserved Reading location - IP/workstation name: [email or web address]
[2018-11-18] MEDS ORDERED: HYDROMORPHONE HCL INJ/PF 2 MG/ML AMPULE ONE (13:46)
--- NOTE | 2018-11-18 14:17 | RADIOLOGY REPORT (SQ) ---
EXAM DESCRIPTION: CT ABD/PELVIS NO ORAL OR IV COMPLETED DATE/TIME: 11/18/2018 1:47 pm REASON FOR STUDY: difficulty urinating, hx. stone, right flank pain COMPARISON: 06/03/2018. TECHNIQUE: CT scan of the abdomen and pelvis performed without intravenous or oral contrast. Images reviewed with lung, soft tissue, and bone windows. Reconstructed coronal and sagittal MPR images revi ewed. All images stored on PACS. All CT scanners at this facility use dose modulation, iterative reconstruction, and/or weight based d osing when appropriate to reduce radiation dose to as low as reasonably achievable (ALARA). [facility]: Dose Right [facility]: CareDose [facility]: Dose Right [facility]: Teradose 4D [facility]: [employer] RADIATION DOSE: CT Rad equipment meets quality standard of care and radiation dose reduction techniq ues were employed. CTDIvol: 15.7 mGy. DLP: 861 mGy-cm.mGy. LIMITATIONS: None. FINDINGS: LOWER CHEST: No significant findings. No nodules or infiltrates. NON-CONTRASTED LIVER, SPLEEN, ADRENALS: Liver: No abnormality. Spleen: No abnormality. Adrenals: No abnormality. PANCREAS: No abnormality. GALLBLADDER: Status post cholecystectomy. RIGHT KIDNEY AND URETER: Nonobstructive calculus lower pole pole right kidney. LEFT KIDNEY AND URETER:Nonobstructive calculus mid left kidney. AORTA AND RETROPERITONEUM: No aneurysm. No retroperitoneal masses or adenopathy. Moderate amount of fecal material within the colon. No obvious masses or inflammatory changes. No free fluid. APPENDIX: Normal. PELVIS, BLADDER, AND ABDOMINAL WALL:Urinary bladder: No abnormality. Prostate and seminal vesicles: No abnormality. BONES: No significant findings. OTHER: No other significant finding. IMPRESSION: Nonobstructive bilateral renal calculi. Status post cholecystectomy. COMMENT: Quality ID # [id number]: Final reports with documentation of one or more dose reduction techniques (e.g., Automated exposure control, adjustment of the mA and/or kV according to patient size, use of iterative reconstruction technique) TECHNICAL DOCUMENTATION: JOB ID: [id number] [id number] 2010 [email or web address]- All Rights Reserved Reading location - IP/workstation name: [email or web address]
[2018-11-18] MEDS ORDERED: OXYCODONE-ACETAMINOPHEN 5-325 MG TABLET PO ONE (14:40)
[2018-11-18 14:55] VITALS: BP 155/88
== END 2018-11-18 14:55 | disposition home or self-care (01) ==
LOC: ER 10:02
DX: N20.0 Calculus of kidney (principal); R11.0 Nausea; R53.1 Weakness; I10 Essential (primary) hypertension; Z89.512 Acquired absence of left leg below knee; Z90.49 Acquired absence of other specified parts of digestive tract; Z87.442 Personal history of urinary calculi; Z88.0 Allergy status to penicillin; Z88.6 Allergy status to analgesic agent
CPT/HCPCS: 96376; 99284; 96361; 96374; 96375; 36415; 87086; 85025; 80053; 81001; 72146; 72148; 74176; J1170; J2060; J2550; J7030

== ENCOUNTER 2018-11-22 14:54 | Emergency (ER) | payer OTHER, MEDICARE ==
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
[2018-11-22 16:04] LABS: ABSOLUTE BASOPHILS # (AUTO) 0.1 10^3/uL (0.0-0.2); ABSOLUTE EOSINOPHILS # (AUTO) 0.3 10^3/uL (0.0-0.6); ABSOLUTE MONOCYTES (AUTO) 0.4 10^3/uL (0.1-1.4); ABSOLUTE NEUT (AUTO) 2.3 10^3/uL (1.7-8.2); BASOPHILS % (AUTO) 1.1 % (0-2); EOSINOPHILS % (AUTO) 5.8 % (0-6); HEMATOCRIT 40.8 % (37.9-51.0); HEMOGLOBIN 13.5 g/dL (13.5-17.0); LYMPHOCYTES % (AUTO) 39.4 % (13-45); MEAN CORPUSCULAR HEMOGLOBIN 26.5 pg (27.0-33.4); MEAN CORPUSCULAR HGB CONC 33.1 g/dL (32.0-36.0); MEAN CORPUSCULAR VOLUME 80 fl (80-97); MONOCYTES % (AUTO) 8.3 % (3-13); PLATELET COUNT 178 10^3/uL (150-450); SEGMENTED NEUTROPHILS % (AUTO) 45.4 % (42-78); TOTAL CELLS COUNTED % (AUTO) 100 %; WHITE BLOOD COUNT 5.2 10^3/uL (4.0-10.5)
[2018-11-22 16:20] LABS: ALANINE AMINOTRANSFERASE 50 U/L (21-72); ALBUMIN 4.3 g/dL (3.5-5.0); ALKALINE PHOSPHATASE 116 U/L (38-126); ANION GAP 8 (5-19); ASPARTATE AMINO TRANSFERASE 67 U/L (17-59); BILIRUBIN,DIRECT 0.2 mg/dL (0.0-0.4); BILIRUBIN,TOTAL 0.3 mg/dL (0.2-1.3); BLOOD UREA NITROGEN 8 mg/dL (7-20); CALCIUM 9.2 mg/dL (8.4-10.2); CARBON DIOXIDE 25 mmol/L (22-30); CHLORIDE 104 mmol/L (98-107); GLUCOSE 104 mg/dL (75-110); POTASSIUM 4.2 mmol/L (3.6-5.0)
[2018-11-22 16:33] LABS: APPEARANCE,URINE CLEAR; BILIRUBIN,URINE NEGATIVE (NEGATIVE); COLOR,URINE YELLOW; GLUCOSE, URINE NEGATIVE (NEGATIVE); KETONES,URINE NEGATIVE (NEGATIVE); LEUKOCYTE ESTERASE,URINE NEGATIVE (NEGATIVE); NITRITE,URINE NEGATIVE (NEGATIVE); PROTEIN,URINE NEGATIVE (NEGATIVE); URINE SPECIFIC GRAVITY 1.018; UROBILINOGEN,URINE NEGATIVE mg/dL (<2.0)
[2018-11-22] MEDS ORDERED: LIDOCAINE 5% (700 MG) TRANSDERMAL ADH..PATCH TP ONE (16:51)
[2018-11-22] MEDS ORDERED: ONDANSETRON 4 MG TAB.RAPDIS PO ONE (16:51)
[2018-11-22] MEDS ORDERED: CLONIDINE HCL 0.1 MG TABLET PO ONE (16:51)
[2018-11-22] MEDS ORDERED: HYDROMORPHONE HCL INJ/PF 2 MG/ML AMPULE IV ONE ×2 (18:14→19:51)
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
[2018-11-22] MEDS ORDERED: PROMETHAZINE HCL INJ 25 MG/1 ML VIAL IV ONE (19:51)
[2018-11-22 20:30] VITALS: BP 145/87
== END 2018-11-22 20:26 | disposition home or self-care (01) ==
LOC: ER 14:54
DX: M54.5 Low back pain (principal); I10 Essential (primary) hypertension; Z88.0 Allergy status to penicillin
CPT/HCPCS: 96376; 99283; 96374; 96375; 36415; 83690; 85025; 80053; 81001; S0119; J1170; J2550

== ENCOUNTER 2018-11-24 23:36 | Emergency (ER) | payer OTHER, MEDICARE ==
[2018-11-24 23:46] VITALS: BP 174/84
[2018-11-25] MEDS ORDERED: HYDROMORPHONE HCL INJ/PF 2 MG/ML AMPULE IV ONE ×2 (02:50→04:35)
[2018-11-25] MEDS ORDERED: PROMETHAZINE HCL INJ 25 MG/1 ML VIAL IM ONE (02:50)
[2018-11-25 03:11] LABS: ABSOLUTE BASOPHILS # (AUTO) 0.1 10^3/uL (0.0-0.2); ABSOLUTE EOSINOPHILS # (AUTO) 0.3 10^3/uL (0.0-0.6); ABSOLUTE LYMPHOCYTES (AUTO) 3.2 10^3/uL (0.5-4.7); ABSOLUTE MONOCYTES (AUTO) 0.9 10^3/uL (0.1-1.4); ABSOLUTE NEUT (AUTO) 5.1 10^3/uL (1.7-8.2); BASOPHILS % (AUTO) 0.6 % (0-2); EOSINOPHILS % (AUTO) 2.7 % (0-6); HEMATOCRIT 40.8 % (37.9-51.0); HEMOGLOBIN 13.6 g/dL (13.5-17.0); LYMPHOCYTES % (AUTO) 33.5 % (13-45); MEAN CORPUSCULAR HEMOGLOBIN 26.8 pg (27.0-33.4); MEAN CORPUSCULAR HGB CONC 33.3 g/dL (32.0-36.0); MEAN CORPUSCULAR VOLUME 81 fl (80-97); MONOCYTES % (AUTO) 9.5 % (3-13); PLATELET COUNT 197 10^3/uL (150-450); RED BLOOD COUNT 5.06 10^6/uL (4.35-5.55); RED CELL DISTRIBUTION WIDTH 15.2 % (11.5-14.0); SEGMENTED NEUTROPHILS % (AUTO) 53.7 % (42-78); TOTAL CELLS COUNTED % (AUTO) 100 %; WHITE BLOOD COUNT 9.5 10^3/uL (4.0-10.5)
[2018-11-25 03:29] LABS: ALBUMIN 4.4 g/dL (3.5-5.0); ALKALINE PHOSPHATASE 129 U/L (38-126); ANION GAP 11 (5-19); ASPARTATE AMINO TRANSFERASE 57 U/L (17-59); BILIRUBIN,DIRECT 0.3 mg/dL (0.0-0.4); BILIRUBIN,TOTAL 0.4 mg/dL (0.2-1.3); BLOOD UREA NITROGEN 12 mg/dL (7-20); CALCIUM 9.8 mg/dL (8.4-10.2); CARBON DIOXIDE 22 mmol/L (22-30); CHLORIDE 104 mmol/L (98-107); GLUCOSE 102 mg/dL (75-110); POTASSIUM 4.2 mmol/L (3.6-5.0); TOTAL PROTEIN 8.2 g/dL (6.3-8.2)
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
[2018-11-25 05:38] LABS: APPEARANCE,URINE SLIGHTLY-CLOUDY; BILIRUBIN,URINE NEGATIVE (NEGATIVE); COLOR,URINE YELLOW; GLUCOSE, URINE NEGATIVE (NEGATIVE); KETONES,URINE NEGATIVE (NEGATIVE); LEUKOCYTE ESTERASE,URINE NEGATIVE (NEGATIVE); NITRITE,URINE NEGATIVE (NEGATIVE); PROTEIN,URINE NEGATIVE (NEGATIVE); UROBILINOGEN,URINE NEGATIVE mg/dL (<2.0)
[2018-11-25] MEDS ORDERED: HYDROMORPHONE HCL INJ/PF 2 MG/ML AMPULE IM ONE (05:59)
[2018-11-25] MEDS ORDERED: ONDANSETRON ODT 4 MG TAB (6 TAB/ER DISP) PO PRN (05:59)
[2018-11-25] MEDS ORDERED: HYDROCODONE/ACETAMINOPHEN 5-325 MG (6 TAB/ER DISP) PO PRN (05:59)
== END 2018-11-25 07:28 | disposition home or self-care (01) ==
LOC: ER 23:36
DX: M54.5 Low back pain (principal); R31.9 Hematuria, unspecified; R39.198 Other difficulties with micturition; R35.0 Frequency of micturition; M54.9 Dorsalgia, unspecified; G89.29 Other chronic pain; R11.10 Vomiting, unspecified; M79.604 Pain in right leg; Z79.899 Other long term (current) drug therapy; I10 Essential (primary) hypertension
CPT/HCPCS: 96376; 99283; 96372; 96374; 36415; 85025; 80053; 81001; J1170; J2550

== ENCOUNTER 2018-12-03 20:03 | Emergency (ER) | payer OTHER, MEDICARE ==
[2018-12-03 22:07] LABS: ABSOLUTE BASOPHILS # (AUTO) 0.1 10^3/uL (0.0-0.2); ABSOLUTE EOSINOPHILS # (AUTO) 0.2 10^3/uL (0.0-0.6); ABSOLUTE LYMPHOCYTES (AUTO) 2.5 10^3/uL (0.5-4.7); ABSOLUTE MONOCYTES (AUTO) 0.3 10^3/uL (0.1-1.4); APPEARANCE,URINE CLEAR; BASOPHILS % (AUTO) 0.7 % (0-2); BILIRUBIN,URINE NEGATIVE (NEGATIVE); COLOR,URINE YELLOW; EOSINOPHILS % (AUTO) 2.6 % (0-6); GLUCOSE, URINE NEGATIVE (NEGATIVE); HEMATOCRIT 44.9 % (37.9-51.0); HEMOGLOBIN 14.6 g/dL (13.5-17.0); KETONES,URINE NEGATIVE (NEGATIVE); LEUKOCYTE ESTERASE,URINE NEGATIVE (NEGATIVE); LYMPHOCYTES % (AUTO) 35.6 % (13-45); MEAN CORPUSCULAR HEMOGLOBIN 26.6 pg (27.0-33.4); MEAN CORPUSCULAR HGB CONC 32.6 g/dL (32.0-36.0); MEAN CORPUSCULAR VOLUME 81 fl (80-97); MONOCYTES % (AUTO) 4.3 % (3-13); NITRITE,URINE NEGATIVE (NEGATIVE); PLATELET COUNT 240 10^3/uL (150-450); PROTEIN,URINE NEGATIVE (NEGATIVE); RED BLOOD COUNT 5.51 10^6/uL (4.35-5.55); RED CELL DISTRIBUTION WIDTH 15.3 % (11.5-14.0); SEGMENTED NEUTROPHILS % (AUTO) 56.8 % (42-78); TOTAL CELLS COUNTED % (AUTO) 100 %; URINE SPECIFIC GRAVITY 1.019; UROBILINOGEN,URINE NEGATIVE mg/dL (<2.0); WHITE BLOOD COUNT 7.1 10^3/uL (4.0-10.5)
[2018-12-03 22:19] LABS: ALBUMIN 4.8 g/dL (3.5-5.0); ALKALINE PHOSPHATASE 112 U/L (38-126); ANION GAP 14 (5-19); ASPARTATE AMINO TRANSFERASE 33 U/L (17-59); BILIRUBIN,DIRECT 0.2 mg/dL (0.0-0.4); BILIRUBIN,TOTAL 0.4 mg/dL (0.2-1.3); BLOOD UREA NITROGEN 7 mg/dL (7-20); CALCIUM 9.6 mg/dL (8.4-10.2); CARBON DIOXIDE 21 mmol/L (22-30); CHLORIDE 103 mmol/L (98-107); GLUCOSE 118 mg/dL (75-110); POTASSIUM 4.2 mmol/L (3.6-5.0); TOTAL PROTEIN 8.5 g/dL (6.3-8.2)
[2018-12-03] MEDS ORDERED: HYDROCODONE/ACETAMINOPHEN 5-325 MG TABLET PO ONE (22:56)
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
[2018-12-03 23:09] VITALS: BP 162/102
--- NOTE | 2018-12-03 23:52 | RADIOLOGY REPORT (SQ) ---
CT ABDOMEN PELVIS WITHOUT IV CONTRAST EXAM DATE: 12/03/2018 10:55 PM CDT HISTORY: Hematuria. Back pain. COMPARISON: 11/18/2018. TECHNIQUE: CT scan of the abdomen and pelvis was performed without IV contrast. This exam was performed according to our departmental dose-optimization program, which includes automated exposure control, adjustment of the mA and/or kV according to patient size and/or use of iterative reconstruction technique. FINDINGS: The lung bases are clear. No pleural or pericardial effusions. There has been a prior cholecystectomy. The liver, spleen, pancreas, and adrenal glands are normal. There are a few bilateral nonobstructing renal stones, with the largest measuring 5 mm in the left kidney. No hydronephrosis. No bladder stones are seen. The appendix is not seen. No small bowel obstruction or acute diverticulitis. No free fluid or free air. The aorta is normal caliber. There are geographic areas of sclerosis within the bilateral femoral heads distant with AVN, without subchondral collapse. IMPRESSION: Punctate bilateral nonobstructing renal stones. No hydronephrosis.
[2018-12-04] MEDS ORDERED: METHOCARBAMOL INJ/PF 1000 MG/10 ML SDV IV ONE (01:08)
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
== END 2018-12-04 02:15 | disposition home or self-care (01) ==
LOC: ER 20:03
DX: K62.5 Hemorrhage of anus and rectum (principal); R31.9 Hematuria, unspecified; M54.5 Low back pain; Z89.512 Acquired absence of left leg below knee; Z87.442 Personal history of urinary calculi; Z90.49 Acquired absence of other specified parts of digestive tract; Z88.6 Allergy status to analgesic agent; Z88.0 Allergy status to penicillin
CPT/HCPCS: 99284; 96365; 36415; 83690; 85025; 80053; 81001; 74176; J2800

== ENCOUNTER 2018-12-15 09:55 | Emergency (ER) | payer OTHER, MEDICARE ==
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
[2018-12-15] MEDS ORDERED: ONDANSETRON HCL INJ/PF 4 MG/2 ML SDV IV ONE (10:06)
[2018-12-15] MEDS ORDERED: NORMAL SALINE 1000 ML 1,000 ML IV ONE (10:06)
[2018-12-15] MEDS ORDERED: ONDANSETRON HCL INJ/PF 4 MG/2 ML SDV ONE (10:13)
[2018-12-15] MEDS ORDERED: KETOROLAC TROMETHAMINE INJ/PF 30 MG/1 ML SDV IV ONE (10:36)
[2018-12-15] MEDS ORDERED: MORPHINE SULFATE 10 MG/ML INJ IV ONE (10:36)
[2018-12-15 10:39] LABS: ABSOLUTE BASOPHILS # (AUTO) 0.1 10^3/uL (0.0-0.2); ABSOLUTE EOSINOPHILS # (AUTO) 0.2 10^3/uL (0.0-0.6); ABSOLUTE LYMPHOCYTES (AUTO) 3.4 10^3/uL (0.5-4.7); ABSOLUTE MONOCYTES (AUTO) 0.5 10^3/uL (0.1-1.4); ABSOLUTE NEUT (AUTO) 2.5 10^3/uL (1.7-8.2); BASOPHILS % (AUTO) 1.2 % (0-2); HEMATOCRIT 39.8 % (37.9-51.0); HEMOGLOBIN 13.3 g/dL (13.5-17.0); LYMPHOCYTES % (AUTO) 50.4 % (13-45); MEAN CORPUSCULAR HEMOGLOBIN 27.1 pg (27.0-33.4); MEAN CORPUSCULAR HGB CONC 33.4 g/dL (32.0-36.0); MEAN CORPUSCULAR VOLUME 81 fl (80-97); MONOCYTES % (AUTO) 7.4 % (3-13); PLATELET COUNT 196 10^3/uL (150-450); RED CELL DISTRIBUTION WIDTH 15.5 % (11.5-14.0); TOTAL CELLS COUNTED % (AUTO) 100 %; WHITE BLOOD COUNT 6.7 10^3/uL (4.0-10.5)
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
[2018-12-15 10:53] LABS: APPEARANCE,URINE CLEAR; BILIRUBIN,URINE NEGATIVE (NEGATIVE); COLOR,URINE YELLOW; GLUCOSE, URINE NEGATIVE (NEGATIVE); KETONES,URINE NEGATIVE (NEGATIVE); LEUKOCYTE ESTERASE,URINE NEGATIVE (NEGATIVE); NITRITE,URINE NEGATIVE (NEGATIVE); PROTEIN,URINE NEGATIVE (NEGATIVE); URINE SPECIFIC GRAVITY 1.019; UROBILINOGEN,URINE NEGATIVE mg/dL (<2.0)
[2018-12-15 10:55] LABS: ALBUMIN 4.3 g/dL (3.5-5.0); ALKALINE PHOSPHATASE 89 U/L (38-126); ANION GAP 10 (5-19); ASPARTATE AMINO TRANSFERASE 53 U/L (17-59); BILIRUBIN,DIRECT 0.6 mg/dL (0.0-0.4); BILIRUBIN,TOTAL 0.7 mg/dL (0.2-1.3); BLOOD UREA NITROGEN 12 mg/dL (7-20); CALCIUM 9.2 mg/dL (8.4-10.2); CARBON DIOXIDE 24 mmol/L (22-30); CHLORIDE 103 mmol/L (98-107); GLUCOSE 135 mg/dL (75-110); POTASSIUM 4.8 mmol/L (3.6-5.0); TOTAL PROTEIN 7.8 g/dL (6.3-8.2)
--- NOTE | 2018-12-15 11:25 | RADIOLOGY REPORT (SQ) ---
EXAM DESCRIPTION: CT ABD/PELVIS NO ORAL OR IV COMPLETED DATE/TIME: 12/15/2018 10:57 am REASON FOR STUDY: 8; right flank with rlq pain COMPARISON: 12/03/2018 TECHNIQUE: CT scan of the abdomen and pelvis performed without intravenous or oral contrast. Images reviewed with lung, soft tissue, and bone windows. Reconstructed coronal and sagittal MPR images revi ewed. All images stored on PACS. All CT scanners at this facility use dose modulation, iterative reconstruction, and/or weight based d osing when appropriate to reduce radiation dose to as low as reasonably achievable (ALARA). [facility]: Dose Right [facility]: CareDose [facility]: Dose Right [facility]: Teradose 4D [facility]: [email or web address] RADIATION DOSE: CT Rad equipment meets quality standard of care and radiation dose reduction techniq ues were employed. CTDIvol: 13.6 mGy. DLP: 778 mGy-cm.mGy. LIMITATIONS: None. FINDINGS: LOWER CHEST: No significant findings. No nodules or infiltrates. NON-CONTRASTED LIVER, SPLEEN, ADRENALS: Evaluation limited by lack of IV contrast. No identified sign ificant masses. PANCREAS: No masses. No peripancreatic inflammatory changes. GALLBLADDER: Surgically absent. RIGHT KIDNEY AND URETER: No suspicious masses. Assessment limited by lack of IV contrast. 5 mm calc ulus midpole. No hydronephrosis or hydroureter. LEFT KIDNEY AND URETER: No suspicious masses. Assessment limited by lack of IV contrast. 5 mm calcu angely lower pole. No hydronephrosis or hydroureter. AORTA AND RETROPERITONEUM: No aneurysm. No retroperitoneal masses or adenopathy. BOWEL AND PERITONEAL CAVITY: No obvious masses or inflammatory changes. No free fluid. APPENDIX: Surgically absent. PELVIS, BLADDER, AND ABDOMINAL WALL:No abnormal masses. No free fluid. Bladder normal. BONES: No significant findings. OTHER: No other significant finding. IMPRESSION: Nonobstructing renal calculi. COMMENT: Quality ID # [id number]: Final reports with documentation of one or more dose reduction techniques (e.g., Automated exposure control, adjustment of the mA and/or kV according to patient size, use of iterative reconstruction technique) TECHNICAL DOCUMENTATION: JOB ID: [id number] [employer]- All Rights Reserved Reading location - IP/workstation name: [email or web address]
[2018-12-15] MEDS ORDERED: HYDROCODONE/ACETAMINOPHEN 5-325 MG TABLET PO ONE (11:31)
[2018-12-15 12:06] VITALS: BP 137/102
== END 2018-12-15 12:05 | disposition home or self-care (01) ==
LOC: ER 09:55
DX: R10.9 Unspecified abdominal pain (principal); R31.9 Hematuria, unspecified; I10 Essential (primary) hypertension; Z87.442 Personal history of urinary calculi; Z90.49 Acquired absence of other specified parts of digestive tract; Z89.512 Acquired absence of left leg below knee; Z88.0 Allergy status to penicillin; Z88.6 Allergy status to analgesic agent
CPT/HCPCS: 99284; 96361; 96374; 96375; 36415; 83690; 85025; 80053; 81001; 74176; J1885; J2270; J2405; J7030

== ENCOUNTER 2019-01-14 16:29 | Emergency (ER) | payer OTHER, MEDICARE ==
[2019-01-14] MEDS ORDERED: HYDROMORPHONE HCL INJ/PF 2 MG/ML AMPULE IV ONE ×2 (16:57→18:08)
[2019-01-14] MEDS ORDERED: ONDANSETRON HCL INJ/PF 4 MG/2 ML SDV IV ONE (17:00)
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
[2019-01-14] MEDS: NORMAL SALINE 1000 ML 1,000 ML IV PRN ×2 (17:24→18:59)
[2019-01-14 17:57] LABS: APPEARANCE,URINE SLIGHTLY-CLOUDY; BILIRUBIN,URINE NEGATIVE (NEGATIVE); COLOR,URINE YELLOW; GLUCOSE, URINE NEGATIVE (NEGATIVE); KETONES,URINE TRACE mg/dL (NEGATIVE); LEUKOCYTE ESTERASE,URINE TRACE (NEGATIVE); NITRITE,URINE NEGATIVE (NEGATIVE); PROTEIN,URINE 30 mg/dL (NEGATIVE); UROBILINOGEN,URINE NEGATIVE mg/dL (<2.0)
--- NOTE | 2019-01-14 18:06 | RADIOLOGY REPORT (SQ) ---
EXAM DESCRIPTION: CT ABD/PELVIS NO ORAL OR IV COMPLETED DATE/TIME: 01/14/2019 5:34 pm REASON FOR STUDY: R flank pain ?kidney stone COMPARISON: 12/15/2018 TECHNIQUE: CT scan of the abdomen and pelvis performed without intravenous or oral contrast. Images reviewed with lung, soft tissue, and bone windows. Reconstructed coronal and sagittal MPR images revi ewed. All images stored on PACS. All CT scanners at this facility use dose modulation, iterative reconstruction, and/or weight based d osing when appropriate to reduce radiation dose to as low as reasonably achievable (ALARA). [facility]: Dose Right [facility]: CareDose [facility]: Dose Right [facility]: Teradose 4D [facility]: Smart [employer] RADIATION DOSE: CT Rad equipment meets quality standard of care and radiation dose reduction techniq ues were employed. CTDIvol: 18.1 mGy. DLP: 1114 mGy-cm.mGy. LIMITATIONS: None. FINDINGS: LOWER CHEST: No significant findings. No nodules or infiltrates. NON-CONTRASTED LIVER, SPLEEN, ADRENALS: Evaluation limited by lack of IV contrast. No identified sign ificant masses. PANCREAS: No masses. No peripancreatic inflammatory changes. GALLBLADDER: Surgically absent. RIGHT KIDNEY AND URETER: No suspicious masses. Assessment limited by lack of IV contrast. Periphera l nephrolithiasis. No hydronephrosis or hydroureter. LEFT KIDNEY AND URETER: No suspicious masses. Assessment limited by lack of IV contrast. Peripheral nephrolithiasis. No hydronephrosis or hydroureter. AORTA AND RETROPERITONEUM: No aneurysm. No retroperitoneal masses or adenopathy. BOWEL AND PERITONEAL CAVITY: No obvious masses or inflammatory changes. No free fluid. APPENDIX: Surgically absent. PELVIS, BLADDER, AND ABDOMINAL WALL:No abnormal masses. No free fluid. Bladder normal. BONES: No significant findings. OTHER: No other significant finding. IMPRESSION: Bilateral peripheral nephrolithiasis. No obstructing calculi. COMMENT: Quality ID # [id number]: Final reports with documentation of one or more dose reduction techniques (e.g., Automated exposure control, adjustment of the mA and/or kV according to patient size, use of iterative reconstruction technique) TECHNICAL DOCUMENTATION: JOB ID: [id number] [email or web address] All Rights Reserved Reading location - IP/workstation name: [email or web address]
[2019-01-14] MEDS ORDERED: CEFTRIAXONE 1 GM/D5W RTU 1 GM/50 ML RTUPB IV ONE (18:12)
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
[2019-01-14 18:17] LABS: ABSOLUTE BASOPHILS # (AUTO) 0.1 10^3/uL (0.0-0.2); ABSOLUTE EOSINOPHILS # (AUTO) 0.2 10^3/uL (0.0-0.6); ABSOLUTE LYMPHOCYTES (AUTO) 3.4 10^3/uL (0.5-4.7); ABSOLUTE MONOCYTES (AUTO) 0.7 10^3/uL (0.1-1.4); ABSOLUTE NEUT (AUTO) 4.2 10^3/uL (1.7-8.2); EOSINOPHILS % (AUTO) 1.9 % (0-6); HEMOGLOBIN 13.6 g/dL (13.5-17.0); LYMPHOCYTES % (AUTO) 39.8 % (13-45); MEAN CORPUSCULAR HEMOGLOBIN 26.8 pg (27.0-33.4); MEAN CORPUSCULAR HGB CONC 33.1 g/dL (32.0-36.0); MEAN CORPUSCULAR VOLUME 81 fl (80-97); MONOCYTES % (AUTO) 8.2 % (3-13); PLATELET COUNT 235 10^3/uL (150-450); RED BLOOD COUNT 5.07 10^6/uL (4.35-5.55); RED CELL DISTRIBUTION WIDTH 15.2 % (11.5-14.0); SEGMENTED NEUTROPHILS % (AUTO) 49.1 % (42-78); TOTAL CELLS COUNTED % (AUTO) 100 %; WHITE BLOOD COUNT 8.5 10^3/uL (4.0-10.5)
[2019-01-14 18:33] LABS: ALBUMIN 4.8 g/dL (3.5-5.0); ALKALINE PHOSPHATASE 101 U/L (38-126); ANION GAP 14 (5-19); ASPARTATE AMINO TRANSFERASE 42 U/L (17-59); BILIRUBIN,DIRECT 0.2 mg/dL (0.0-0.4); BILIRUBIN,TOTAL 0.4 mg/dL (0.2-1.3); BLOOD UREA NITROGEN 8 mg/dL (7-20); CALCIUM 10.3 mg/dL (8.4-10.2); CARBON DIOXIDE 24 mmol/L (22-30); CHLORIDE 102 mmol/L (98-107); GLUCOSE 107 mg/dL (75-110); POTASSIUM 4.1 mmol/L (3.6-5.0); TOTAL PROTEIN 8.3 g/dL (6.3-8.2)
[2019-01-14] MEDS ORDERED: DOXYCYCLINE HYCLATE 100 MG TABLET PO ONE (19:15)
[2019-01-14] MEDS ORDERED: PHENAZOPYRIDINE HCL 200 MG TABLET PO ONE (19:26)
[2019-01-14 19:52] VITALS: BP 169/106
[2019-01-14 20:54] LABS: CHLAM PCR NOT DETECTED (NOT DETECT)
== END 2019-01-14 19:52 | disposition home or self-care (01) ==
LOC: ER 16:29
DX: N30.01 Acute cystitis with hematuria (principal); R10.9 Unspecified abdominal pain; R10.31 Right lower quadrant pain; R30.0 Dysuria; R11.0 Nausea; I10 Essential (primary) hypertension; Z79.899 Other long term (current) drug therapy
CPT/HCPCS: 96376; 99284; 96361; 96375; 96365; 36415; 87086; 85025; 80053; 81001; 87491; 87591; 74176; J1170; J3490; J2405; J7030; J0696

== ENCOUNTER 2019-02-13 03:47 | Emergency (ER) | payer OTHER, MEDICARE ==
[2019-02-13] MEDS ORDERED: ONDANSETRON 4 MG TAB.RAPDIS PO ONE (04:08)
[2019-02-13] MEDS ORDERED: DICYCLOMINE HCL INJ 20 MG/2 ML AMPULE IM ONE (04:09)
[2019-02-13 04:46] LABS: ABSOLUTE BASOPHILS # (AUTO) 0.1 10^3/uL (0.0-0.2); ABSOLUTE EOSINOPHILS # (AUTO) 0.3 10^3/uL (0.0-0.6); ABSOLUTE LYMPHOCYTES (AUTO) 3.6 10^3/uL (0.5-4.7); ABSOLUTE MONOCYTES (AUTO) 0.5 10^3/uL (0.1-1.4); ABSOLUTE NEUT (AUTO) 2.9 10^3/uL (1.7-8.2); BASOPHILS % (AUTO) 1.2 % (0-2); EOSINOPHILS % (AUTO) 3.6 % (0-6); HEMATOCRIT 40.8 % (37.9-51.0); HEMOGLOBIN 13.3 g/dL (13.5-17.0); LYMPHOCYTES % (AUTO) 49.4 % (13-45); MEAN CORPUSCULAR HEMOGLOBIN 26.6 pg (27.0-33.4); MEAN CORPUSCULAR HGB CONC 32.7 g/dL (32.0-36.0); MEAN CORPUSCULAR VOLUME 81 fl (80-97); MONOCYTES % (AUTO) 6.6 % (3-13); PLATELET COUNT 245 10^3/uL (150-450); RED BLOOD COUNT 5.01 10^6/uL (4.35-5.55); SEGMENTED NEUTROPHILS % (AUTO) 39.2 % (42-78); TOTAL CELLS COUNTED % (AUTO) 100 %; WHITE BLOOD COUNT 7.4 10^3/uL (4.0-10.5)
[2019-02-13 05:03] LABS: ALBUMIN 4.3 g/dL (3.5-5.0); ALKALINE PHOSPHATASE 83 U/L (38-126); ANION GAP 13 (5-19); ASPARTATE AMINO TRANSFERASE 36 U/L (17-59); BILIRUBIN,DIRECT 0.1 mg/dL (0.0-0.4); BILIRUBIN,TOTAL 0.4 mg/dL (0.2-1.3); BLOOD UREA NITROGEN 7 mg/dL (7-20); CARBON DIOXIDE 24 mmol/L (22-30); CHLORIDE 102 mmol/L (98-107); GLUCOSE 111 mg/dL (75-110); POTASSIUM 4.4 mmol/L (3.6-5.0); TOTAL PROTEIN 7.9 g/dL (6.3-8.2)
[2019-02-13] MEDS ORDERED: IBUPROFEN 800 MG TABLET PO ONE (05:26)
[2019-02-13 05:46] LABS: BILIRUBIN,URINE NEGATIVE (NEGATIVE); GLUCOSE, URINE NEGATIVE (NEGATIVE); KETONES,URINE NEGATIVE (NEGATIVE); LEUKOCYTE ESTERASE,URINE NEGATIVE (NEGATIVE); NITRITE,URINE NEGATIVE (NEGATIVE); PROTEIN,URINE 100 mg/dL (NEGATIVE); URINE SPECIFIC GRAVITY 1.023; UROBILINOGEN,URINE NEGATIVE mg/dL (<2.0)
[2019-02-13 05:48] LABS: COLOR,URINE RED
[2019-02-13 05:49] LABS: APPEARANCE,URINE TURBID
[2019-02-13] MEDS ORDERED: CEFTRIAXONE 1 GM/D5W RTU 1 GM/50 ML RTUPB IV ONE (05:54)
[2019-02-13] MEDS ORDERED: DIAZEPAM INJ 10 MG/2 ML DISP.SYRIN IV ONE (06:01)
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
[2019-02-13 06:39] VITALS: BP 153/92
[2019-02-13 06:45] LABS: URINE AMPHETAMINES SCREEN NEGATIVE; URINE BARBITURATES SCREEN NEGATIVE; URINE BENZODIAZEPINES SCREEN NEGATIVE; URINE COCAINE SCREEN NEGATIVE; URINE MARIJUANA (THC) SCREEN NEGATIVE; URINE METHADONE SCREEN NEGATIVE; URINE PHENCYCLIDINE SCREEN NEGATIVE
== END 2019-02-13 06:38 | disposition home or self-care (01) ==
LOC: ER 03:47
DX: N39.0 Urinary tract infection, site not specified (principal); R31.0 Gross hematuria; R11.2 Nausea with vomiting, unspecified; R30.0 Dysuria; F19.10 Other psychoactive substance abuse, uncomplicated; I10 Essential (primary) hypertension; Z79.899 Other long term (current) drug therapy; Z79.891 Long term (current) use of opiate analgesic; Z90.49 Acquired absence of other specified parts of digestive tract; Z87.19 Personal history of other diseases of the digestive system; Z88.0 Allergy status to penicillin; Z88.8 Allergy status to other drugs, medicaments and biological substances; Z88.5 Allergy status to narcotic agent
CPT/HCPCS: 99284; 96372; 36415; 87086; 85025; 80053; 81001; 80307; J0500; S0119

== ENCOUNTER 2019-02-16 04:00 | Emergency (ER) | payer OTHER, MEDICARE ==
[2019-02-16 04:08] VITALS: BP 162/108
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
[2019-02-16] MEDS ORDERED: PROCHLORPERAZINE EDISYLATE INJ 10 MG/2 ML VIAL IM ONE (05:17)
[2019-02-16] MEDS ORDERED: AMLODIPINE BESYLATE 10 MG TABLET PO ONE (05:26)
[2019-02-16 06:10] LABS: ANION GAP 12 (5-19); BLOOD UREA NITROGEN 10 mg/dL (7-20); CALCIUM 9.3 mg/dL (8.4-10.2); CARBON DIOXIDE 24 mmol/L (22-30); CHLORIDE 101 mmol/L (98-107); GLUCOSE 86 mg/dL (75-110); POTASSIUM 4.4 mmol/L (3.6-5.0)
[2019-02-16 06:22] LABS: APPEARANCE,URINE SLIGHTLY-CLOUDY; BILIRUBIN,URINE NEGATIVE (NEGATIVE); CALCIUM OXALATE CRYSTALS,URINE MODERATE /HPF; COLOR,URINE YELLOW; GLUCOSE, URINE NEGATIVE (NEGATIVE); KETONES,URINE NEGATIVE (NEGATIVE); LEUKOCYTE ESTERASE,URINE NEGATIVE (NEGATIVE); NITRITE,URINE NEGATIVE (NEGATIVE); PROTEIN,URINE NEGATIVE (NEGATIVE); URINE SPECIFIC GRAVITY 1.032; UROBILINOGEN,URINE NEGATIVE mg/dL (<2.0)
--- NOTE | 2019-02-16 06:56 | ER Document Report ---
Doctor's Note Notes: 02/16/19 06:55 At the beginning of my shift, care of this patient was turned over to me. I was waiting to evaluate his urine sample. He presented with flank pain, he had multiple complaints of flank pain. He said multiple CTs. Urinalysis came back and showed large blood. The patient asked repeatedly for pain medication. I did not see or evaluate the patient, but explained that I was going to come in, see him independently, and evaluate him for appropriate discharge. At that point he decided to leave AGAINST MEDICAL ADVICE. Given the blood in his urine I did send it for culture, but he has had large blood in every urine sample that he is submitted over the last 6 weeks. He needs urological follow-up. Nursing explained this to the patient, and he left AMA.
== END 2019-02-16 06:58 | disposition home or self-care (01) ==
LOC: ER 04:00
DX: R10.9 Unspecified abdominal pain (principal); I10 Essential (primary) hypertension; R31.9 Hematuria, unspecified; R10.31 Right lower quadrant pain; N48.89 Other specified disorders of penis; Z79.899 Other long term (current) drug therapy
CPT/HCPCS: 99283; 96372; 36415; 80048; 81001; J0780

== ENCOUNTER 2019-03-11 04:06 | Emergency (ER) | payer OTHER, MEDICARE ==
[2019-03-11] MEDS ORDERED: PROMETHAZINE HCL INJ 25 MG/1 ML VIAL IV ONE (05:01)
[2019-03-11 05:24] LABS: ABSOLUTE BASOPHILS # (AUTO) 0.2 10^3/uL (0.0-0.2); ABSOLUTE EOSINOPHILS # (AUTO) 0.3 10^3/uL (0.0-0.6); ABSOLUTE LYMPHOCYTES (AUTO) 3.1 10^3/uL (0.5-4.7); ABSOLUTE MONOCYTES (AUTO) 0.5 10^3/uL (0.1-1.4); ABSOLUTE NEUT (AUTO) 2.8 10^3/uL (1.7-8.2); BASOPHILS % (AUTO) 2.3 % (0-2); EOSINOPHILS % (AUTO) 4.4 % (0-6); HEMOGLOBIN 13.9 g/dL (13.5-17.0); LYMPHOCYTES % (AUTO) 45.3 % (13-45); MEAN CORPUSCULAR HGB CONC 33.1 g/dL (32.0-36.0); MEAN CORPUSCULAR VOLUME 82 fl (80-97); MONOCYTES % (AUTO) 7.7 % (3-13); PLATELET COUNT 214 10^3/uL (150-450); RED BLOOD COUNT 5.14 10^6/uL (4.35-5.55); SEGMENTED NEUTROPHILS % (AUTO) 40.3 % (42-78); TOTAL CELLS COUNTED % (AUTO) 100 %; WHITE BLOOD COUNT 6.8 10^3/uL (4.0-10.5)
[2019-03-11] MEDS ORDERED: NORMAL SALINE 1000 ML 1,000 ML IV ONE (05:57)
[2019-03-11 06:27] LABS: APPEARANCE,URINE CLEAR; BILIRUBIN,URINE NEGATIVE (NEGATIVE); CALCIUM OXALATE CRYSTALS,URINE MODERATE /HPF; COLOR,URINE YELLOW; GLUCOSE, URINE NEGATIVE (NEGATIVE); KETONES,URINE NEGATIVE (NEGATIVE); LEUKOCYTE ESTERASE,URINE NEGATIVE (NEGATIVE); NITRITE,URINE NEGATIVE (NEGATIVE); PROTEIN,URINE NEGATIVE (NEGATIVE); URINE SPECIFIC GRAVITY 1.024; UROBILINOGEN,URINE NEGATIVE mg/dL (<2.0)
[2019-03-11] MEDS ORDERED: DICYCLOMINE HCL 20 MG TABLET PO ONE (06:38)
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
[2019-03-11 06:47] LABS: ALBUMIN 4.4 g/dL (3.5-5.0); ALKALINE PHOSPHATASE 107 U/L (38-126); ANION GAP 12 (5-19); ASPARTATE AMINO TRANSFERASE 34 U/L (17-59); BILIRUBIN,DIRECT 0.1 mg/dL (0.0-0.4); BILIRUBIN,TOTAL 0.3 mg/dL (0.2-1.3); BLOOD UREA NITROGEN 7 mg/dL (7-20); CALCIUM 9.7 mg/dL (8.4-10.2); CARBON DIOXIDE 22 mmol/L (22-30); CHLORIDE 107 mmol/L (98-107); GLUCOSE 93 mg/dL (75-110); POTASSIUM 4.2 mmol/L (3.6-5.0); TOTAL PROTEIN 8.1 g/dL (6.3-8.2)
[2019-03-11 07:59] VITALS: BP 157/99
== END 2019-03-11 07:50 | disposition home or self-care (01) ==
LOC: ER 04:06
DX: R11.10 Vomiting, unspecified (principal); R19.7 Diarrhea, unspecified; I10 Essential (primary) hypertension; Z88.0 Allergy status to penicillin; Z88.6 Allergy status to analgesic agent; Z90.49 Acquired absence of other specified parts of digestive tract; Z87.442 Personal history of urinary calculi
CPT/HCPCS: 99284; 96361; 96374; 36415; 87086; 83690; 85025; 80053; 81001; J2550; J7030

== ENCOUNTER 2019-04-06 03:03 | Emergency (ER) | payer OTHER, MEDICARE ==
[2019-04-06] MEDS ORDERED: HYDROMORPHONE HCL INJ/PF 2 MG/ML AMPULE IV ONE ×2 (04:08→05:14)
[2019-04-06] MEDS ORDERED: ONDANSETRON HCL INJ/PF 4 MG/2 ML SDV IV ONE (04:12)
[2019-04-06 04:56] LABS: ABSOLUTE BASOPHILS # (AUTO) 0.1 10^3/uL (0.0-0.2); ABSOLUTE EOSINOPHILS # (AUTO) 0.2 10^3/uL (0.0-0.6); ABSOLUTE LYMPHOCYTES (AUTO) 3.8 10^3/uL (0.5-4.7); ABSOLUTE MONOCYTES (AUTO) 0.5 10^3/uL (0.1-1.4); ABSOLUTE NEUT (AUTO) 3.1 10^3/uL (1.7-8.2); BASOPHILS % (AUTO) 0.7 % (0-2); HEMATOCRIT 41.3 % (37.9-51.0); HEMOGLOBIN 13.7 g/dL (13.5-17.0); LYMPHOCYTES % (AUTO) 49.5 % (13-45); MEAN CORPUSCULAR HEMOGLOBIN 27.1 pg (27.0-33.4); MEAN CORPUSCULAR HGB CONC 33.2 g/dL (32.0-36.0); MEAN CORPUSCULAR VOLUME 82 fl (80-97); MONOCYTES % (AUTO) 6.6 % (3-13); PLATELET COUNT 232 10^3/uL (150-450); RED BLOOD COUNT 5.06 10^6/uL (4.35-5.55); RED CELL DISTRIBUTION WIDTH 15.4 % (11.5-14.0); SEGMENTED NEUTROPHILS % (AUTO) 40.2 % (42-78); TOTAL CELLS COUNTED % (AUTO) 100 %; WHITE BLOOD COUNT 7.7 10^3/uL (4.0-10.5)
[2019-04-06 05:02] LABS: PROTHROMBIN TIME 13.2 SEC (11.4-15.4)
[2019-04-06 05:03] LABS: PARTIAL THROMBOPLASTIN TIME 29.3 SEC (23.5-35.8)
[2019-04-06 05:09] LABS: ALBUMIN 4.6 g/dL (3.5-5.0); ALKALINE PHOSPHATASE 102 U/L (38-126); ANION GAP 13 (5-19); ASPARTATE AMINO TRANSFERASE 33 U/L (17-59); BILIRUBIN,DIRECT 0.1 mg/dL (0.0-0.4); BILIRUBIN,TOTAL 0.4 mg/dL (0.2-1.3); BLOOD UREA NITROGEN 9 mg/dL (7-20); CALCIUM 9.6 mg/dL (8.4-10.2); CARBON DIOXIDE 24 mmol/L (22-30); CHLORIDE 103 mmol/L (98-107); GLUCOSE 101 mg/dL (75-110); POTASSIUM 3.8 mmol/L (3.6-5.0); TOTAL PROTEIN 8.2 g/dL (6.3-8.2)
[2019-04-06 05:50] LABS: APPEARANCE,URINE SLIGHTLY-CLOUDY; BILIRUBIN,URINE NEGATIVE (NEGATIVE); CALCIUM OXALATE CRYSTALS,URINE TOO NUMEROUS TO CNT /HPF; COLOR,URINE YELLOW; GLUCOSE, URINE NEGATIVE (NEGATIVE); KETONES,URINE NEGATIVE (NEGATIVE); PROTEIN,URINE 30 mg/dL (NEGATIVE); URINE SPECIFIC GRAVITY 1.038; UROBILINOGEN,URINE NEGATIVE mg/dL (<2.0)
--- NOTE | 2019-04-06 06:18 | RADIOLOGY REPORT (SQ) ---
CLINICAL HISTORY: Back pain with radiculopathy COMPARISON: None. TECHNIQUE: CT LUMBAR SPINE WITHOUT IV CONTRAST on 04/06/2019 4:12 AM [facility] NURSE This exam was performed according to our departmental dose-optimization program, which includes automated exposure control, adjustment of the mA and/or kV according to patient size and/or use of iterative reconstruction technique. FINDINGS: There is no acute fracture. Alignment is anatomic. There is mild lower lumbar facet arthritis. There are diffuse disc bulges at L3-4, L4-5 and L5-S1. Vertebral body heights are preserved. Soft tissues are unremarkable. IMPRESSION: No acute fracture or subluxation.
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
[2019-04-06] MEDS ORDERED: LORAZEPAM INJ 2 MG/1 ML VIAL IV ONE (08:35)
[2019-04-06] MEDS ORDERED: OXYCODONE-ACETAMINOPHEN 5-325 MG TABLET PO ONE (09:37)
--- NOTE | 2019-04-06 09:39 | RADIOLOGY REPORT (SQ) ---
EXAM DESCRIPTION: MRI LUMBAR SPINE WITHOUT COMPLETED DATE/TIME: 04/06/2019 9:19 am REASON FOR STUDY: Cord syndrome COMPARISON: CT from earlier. TECHNIQUE: Sagittal and Axial imaging includes T1, T2, STIR and gradient echo sequences. Coronal T2/ HASTE imaging. LIMITATIONS: Motion artifact mildly limits. FINDINGS: VISUALIZED UPPER ABDOMEN: Limited evaluation. No acute or suspicious findings suggested. SEGMENTATION: No transitional anatomy. The lowest well-developed disc space is labeled L5-S1. ALIGNMENT: Anatomic. VERTEBRAE: Intact. BONE MARROW: Normal. No marrow replacement or reactive changes. DISC SIGNAL: Normal. No significant abnormal signal or loss of height. POSTERIOR ELEMENTS: No pars defect. Right L4-5 level hemilaminectomy suggested. Mild facet arthrop athy. HARDWARE: None in the spine. CORD AND CONUS: Normal in size and signal intensity. Conus at the appropriate level. SOFT TISSUES: No aortic aneurysm seen. No bulky retroperitoneal adenopathy or mass. No paraspinal mas s or fluid. L1-L2: No significant spinal stenosis or exit foraminal stenosis. L2-L3: No significant spinal stenosis or exit foraminal stenosis. L3-L4: Minimal right foraminal narrowing. No central stenosis. L4-L5: Posterior disc bulging with right paracentral prominence. Contact with the right L5 nerve nadja t without displacement. Up to moderate bilateral foraminal narrowing. L5-S1: No significant spinal stenosis or exit foraminal stenosis. LOWER THORACIC: Incompletely imaged. No stenosis seen. SACRUM: Visualized upper sacrum intact. OTHER: No other significant findings. IMPRESSION: 1. Evidence of previous surgery at the L4-5 level. At this level, mild disc bulge contacts the right L5 nerve root without significant impingement otherwise suggested. There is also moderate foraminal narrowing at this level. 2. No conus compression or high-grade central stenosis evident. 3. No spinal malalignment or fracture or worrisome bone lesion. TECHNICAL DOCUMENTATION: JOB ID: [id number]- All Rights Reserved Reading location - IP/workstation name: [email or web address]
[2019-04-06 10:54] VITALS: BP 166/102
== END 2019-04-06 10:48 | disposition home or self-care (01) ==
LOC: ER 03:03
DX: M51.86 Other intervertebral disc disorders, lumbar region (principal); M54.5 Low back pain; R20.0 Anesthesia of skin; R32 Unspecified urinary incontinence; R15.9 Full incontinence of feces; I10 Essential (primary) hypertension; Z89.611 Acquired absence of right leg above knee; Z79.891 Long term (current) use of opiate analgesic; Z79.899 Other long term (current) drug therapy; Z88.0 Allergy status to penicillin; Z88.8 Allergy status to other drugs, medicaments and biological substances; Z88.6 Allergy status to analgesic agent; Z88.5 Allergy status to narcotic agent
CPT/HCPCS: 96376; 99284; 96374; 96375; 36415; 85025; 85610; 85730; 80053; 81001; 72148; 72131; J1170; J2060; J2405

== ENCOUNTER 2019-05-06 00:17 | Emergency (ER) | payer OTHER, MEDICARE ==
[2019-05-06] MEDS ORDERED: NORMAL SALINE 1000 ML 1,000 ML IV ONE ×2 (00:37→04:10)
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
[2019-05-06 01:23] LABS: APPEARANCE,URINE SLIGHTLY-CLOUDY; BILIRUBIN,URINE NEGATIVE (NEGATIVE); COLOR,URINE YELLOW; GLUCOSE, URINE NEGATIVE (NEGATIVE); KETONES,URINE TRACE mg/dL (NEGATIVE); LEUKOCYTE ESTERASE,URINE NEGATIVE (NEGATIVE); NITRITE,URINE NEGATIVE (NEGATIVE); PROTEIN,URINE 30 mg/dL (NEGATIVE); URINE SPECIFIC GRAVITY 1.026
--- NOTE | 2019-05-06 01:26 | RADIOLOGY REPORT (SQ) ---
EXAM DESCRIPTION: XR ABDOMEN SUPINE AND ERECT WITH CHEST (ABD ACUTE SERIES) COMPLETED DATE/TME: 05/06/2019 00:36 CLINICAL HISTORY: flank pain COMPARISON: 01/14/2019 FINDINGS: Single frontal view of the chest with upright and spine views of the abdomen. Cardiomediastinal silhouette: Normal size and contour. Lungs: No consolidation, pneumothorax, or pleural effusion. Bones: No acute osseous abnormality. Abdomen: No free intraperitoneal air. No dilated loops of large or small bowel. Cholecystectomy. Calcification overlying the left kidney. IMPRESSION: 1. No acute pulmonary process identified. 2. Nonobstructive bowel gas pattern. 3. 0.5 cm left nephrolithiasis.
[2019-05-06 01:35] LABS: ABSOLUTE BASOPHILS # (AUTO) 0.1 10^3/uL (0.0-0.2); ABSOLUTE EOSINOPHILS # (AUTO) 0.4 10^3/uL (0.0-0.6); ABSOLUTE LYMPHOCYTES (AUTO) 3.7 10^3/uL (0.5-4.7); ABSOLUTE MONOCYTES (AUTO) 0.6 10^3/uL (0.1-1.4); ABSOLUTE NEUT (AUTO) 2.8 10^3/uL (1.7-8.2); EOSINOPHILS % (AUTO) 4.8 % (0-6); HEMATOCRIT 42.9 % (37.9-51.0); HEMOGLOBIN 14.7 g/dL (13.5-17.0); LYMPHOCYTES % (AUTO) 49.4 % (13-45); MEAN CORPUSCULAR HGB CONC 34.3 g/dL (32.0-36.0); MEAN CORPUSCULAR VOLUME 82 fl (80-97); MONOCYTES % (AUTO) 7.9 % (3-13); PLATELET COUNT 251 10^3/uL (150-450); RED BLOOD COUNT 5.25 10^6/uL (4.35-5.55); SEGMENTED NEUTROPHILS % (AUTO) 36.9 % (42-78); TOTAL CELLS COUNTED % (AUTO) 100 %; WHITE BLOOD COUNT 7.5 10^3/uL (4.0-10.5)
[2019-05-06 02:00] LABS: ALBUMIN 4.8 g/dL (3.5-5.0); ALKALINE PHOSPHATASE 115 U/L (38-126); ANION GAP 12 (5-19); ASPARTATE AMINO TRANSFERASE 33 U/L (17-59); BILIRUBIN,DIRECT 0.2 mg/dL (0.0-0.4); BILIRUBIN,TOTAL 0.4 mg/dL (0.2-1.3); BLOOD UREA NITROGEN 6 mg/dL (7-20); CALCIUM 9.8 mg/dL (8.4-10.2); CARBON DIOXIDE 25 mmol/L (22-30); CHLORIDE 104 mmol/L (98-107); POTASSIUM 4.5 mmol/L (3.6-5.0); TOTAL PROTEIN 8.7 g/dL (6.3-8.2)
[2019-05-06 02:02] LABS: GLUCOSE 57 mg/dL (75-110)
[2019-05-06] MEDS ORDERED: HYDROMORPHONE HCL INJ/PF 2 MG/ML AMPULE IV ONE ×2 (04:09→04:14)
[2019-05-06] MEDS ORDERED: PROMETHAZINE HCL INJ 50 MG/1 ML VIAL IM PRN ×2 (04:09→04:14)
[2019-05-06] MEDS ORDERED: TAMSULOSIN HCL 0.4 MG CAP.SR.24H PO ONE (04:10)
[2019-05-06] MEDS ORDERED: DEXTROSE 5%-1/2 NORMAL SALINE 500 ML IV ONE (04:14)
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
[2019-05-06] MEDS ORDERED: PROMETHAZINE HCL INJ 50 MG/1 ML VIAL ONE (04:23)
[2019-05-06] MEDS ORDERED: CYCLOBENZAPRINE HCL 10 MG TABLET PO ONE (05:23)
[2019-05-06 05:48] VITALS: BP 162/109
== END 2019-05-06 05:49 | disposition home or self-care (01) ==
LOC: ER 00:17
DX: N20.0 Calculus of kidney (principal); R11.2 Nausea with vomiting, unspecified; R10.9 Unspecified abdominal pain; R31.9 Hematuria, unspecified; Z79.899 Other long term (current) drug therapy; I10 Essential (primary) hypertension
CPT/HCPCS: 99284; 96372; 96361; 96374; 36415; 82962; 83690; 85025; 80053; 81001; 74022; J1170; J2550; J7070

== ENCOUNTER 2019-05-08 02:20 | Emergency (ER) | payer OTHER, MEDICARE ==
[2019-05-08 03:55] LABS: ABSOLUTE EOSINOPHILS # (AUTO) 0.3 10^3/uL (0.0-0.6); ABSOLUTE LYMPHOCYTES (AUTO) 3.6 10^3/uL (0.5-4.7); ABSOLUTE MONOCYTES (AUTO) 0.6 10^3/uL (0.1-1.4); ABSOLUTE NEUT (AUTO) 4.1 10^3/uL (1.7-8.2); BASOPHILS % (AUTO) 0.5 % (0-2); EOSINOPHILS % (AUTO) 2.9 % (0-6); HEMATOCRIT 40.6 % (37.9-51.0); HEMOGLOBIN 13.5 g/dL (13.5-17.0); LYMPHOCYTES % (AUTO) 41.5 % (13-45); MEAN CORPUSCULAR HEMOGLOBIN 27.5 pg (27.0-33.4); MEAN CORPUSCULAR HGB CONC 33.2 g/dL (32.0-36.0); MEAN CORPUSCULAR VOLUME 83 fl (80-97); MONOCYTES % (AUTO) 7.3 % (3-13); PLATELET COUNT 197 10^3/uL (150-450); RED BLOOD COUNT 4.89 10^6/uL (4.35-5.55); RED CELL DISTRIBUTION WIDTH 15.7 % (11.5-14.0); SEGMENTED NEUTROPHILS % (AUTO) 47.8 % (42-78); TOTAL CELLS COUNTED % (AUTO) 100 %; WHITE BLOOD COUNT 8.6 10^3/uL (4.0-10.5)
[2019-05-08 03:59] LABS: APPEARANCE,URINE CLEAR; BILIRUBIN,URINE NEGATIVE (NEGATIVE); COLOR,URINE YELLOW; GLUCOSE, URINE NEGATIVE (NEGATIVE); KETONES,URINE NEGATIVE (NEGATIVE); LEUKOCYTE ESTERASE,URINE NEGATIVE (NEGATIVE); NITRITE,URINE NEGATIVE (NEGATIVE); PROTEIN,URINE 30 mg/dL (NEGATIVE); URINE SPECIFIC GRAVITY 1.031; UROBILINOGEN,URINE NEGATIVE mg/dL (<2.0)
[2019-05-08 04:04] LABS: ALBUMIN 4.5 g/dL (3.5-5.0); ALKALINE PHOSPHATASE 112 U/L (38-126); ANION GAP 14 (5-19); ASPARTATE AMINO TRANSFERASE 37 U/L (17-59); BILIRUBIN,DIRECT 0.2 mg/dL (0.0-0.4); BILIRUBIN,TOTAL 0.3 mg/dL (0.2-1.3); BLOOD UREA NITROGEN 13 mg/dL (7-20); CALCIUM 9.8 mg/dL (8.4-10.2); CARBON DIOXIDE 22 mmol/L (22-30); CHLORIDE 102 mmol/L (98-107); GLUCOSE 97 mg/dL (75-110); POTASSIUM 3.9 mmol/L (3.6-5.0); TOTAL PROTEIN 8.3 g/dL (6.3-8.2)
[2019-05-08] MEDS ORDERED: HYDROMORPHONE HCL INJ/PF 2 MG/ML AMPULE IV PRN (06:22)
[2019-05-08] MEDS ORDERED: NORMAL SALINE 1000 ML 1,000 ML IV ONE (06:23)
[2019-05-08] MEDS ORDERED: METOCLOPRAMIDE HCL INJ/PF 10 MG/2 ML SDV IV ONE (06:23)
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
[2019-05-08 06:59] LABS: URINE AMPHETAMINES SCREEN NEGATIVE; URINE BARBITURATES SCREEN NEGATIVE; URINE BENZODIAZEPINES SCREEN NEGATIVE; URINE COCAINE SCREEN NEGATIVE; URINE MARIJUANA (THC) SCREEN NEGATIVE; URINE METHADONE SCREEN NEGATIVE; URINE PHENCYCLIDINE SCREEN NEGATIVE
--- NOTE | 2019-05-08 07:07 | RADIOLOGY REPORT (SQ) ---
CT abdomen and pelvis without contrast on 05/08/2019 at 6:40 AM CLINICAL INDICATION: Right-sided back pain, history of kidney stones TECHNIQUE: Multiple axial images are obtained throughout the abdomen and pelvis without the administration of contrast. This exam was performed according to our departmental dose-optimization program, which includes automated exposure control, adjustment of the mA and/or kV according to patient size and/or use of iterative reconstruction technique. Total DLP is 1029.66 mGy*cm. COMPARISON: 01/14/2019 FINDINGS: Abdomen: The lung bases are clear. The patient is status post cholecystectomy. There are nonobstructing bilateral renal stones. There is a 5 mm nonobstructing stone in the lower pole of the right kidney. There is a 5 mm nonobstructing stone in the left kidney. There are no ureteral stones and no hydronephrosis. The unenhanced solid abdominal organs are otherwise unremarkable. There is no abdominal adenopathy. There is no free fluid or free air within the abdomen. The abdominal portion of the GI tract is unremarkable. Pelvis: There is no free fluid in the pelvis. There is no pelvic adenopathy. The appendix is not definitely visualized but no pericecal inflammatory changes are noted. Pelvic portion of the GI tract is unremarkable. Changes of avascular necrosis are noted in the bilateral femoral heads that appear stable. No acute bony abnormality is noted. IMPRESSION: 1. Bilateral nephrolithiasis. 2. Stable changes of avascular necrosis in bilateral hips.
[2019-05-08 07:52] VITALS: BP 160/103
== END 2019-05-08 07:52 | disposition home or self-care (01) ==
LOC: ER 02:20
DX: N20.0 Calculus of kidney (principal); R10.9 Unspecified abdominal pain; R31.9 Hematuria, unspecified; I10 Essential (primary) hypertension; G89.29 Other chronic pain; M54.9 Dorsalgia, unspecified; Z87.442 Personal history of urinary calculi; Z88.0 Allergy status to penicillin; Z88.6 Allergy status to analgesic agent; Z90.49 Acquired absence of other specified parts of digestive tract
CPT/HCPCS: 99284; 96361; 96374; 96375; 36415; 83690; 85025; 80053; 81001; 80307; 74176; J2765; J1170; J7030

== ENCOUNTER 2019-05-25 14:39 | Emergency (ER) | payer OTHER, MEDICARE ==
[2019-05-25] MEDS ORDERED: ONDANSETRON 4 MG TAB.RAPDIS PO ONE (15:12)
[2019-05-25] MEDS ORDERED: ASPIRIN 81 MG TABLET, CHEWABLE PO ONE (15:12)
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
--- NOTE | 2019-05-25 16:04 | RADIOLOGY REPORT (SQ) ---
EXAM DESCRIPTION: CHEST 2 VIEWS COMPLETED DATE/TIME: 05/25/2019 3:56 pm REASON FOR STUDY: chest pain COMPARISON: Chest radiographs 05/06/2015 EXAM PARAMETERS: NUMBER OF VIEWS: two views TECHNIQUE: Digital Frontal and Lateral radiographic views of the chest acquired. RADIATION DOSE: NA LIMITATIONS: none FINDINGS: LUNGS AND PLEURA: No opacities, masses or pneumothorax. No pleural effusion. MEDIASTINUM AND HILAR STRUCTURES: No masses or contour abnormalities. HEART AND VASCULAR STRUCTURES: Heart normal size. No evidence for failure. BONES: No acute findings. HARDWARE: Upper abdominal surgical clips. OTHER: No other significant finding. IMPRESSION: NO ACUTE RADIOGRAPHIC FINDING IN THE CHEST. TECHNICAL DOCUMENTATION: JOB ID: [id number] [employer]- All Rights Reserved Reading location - IP/workstation name: [email or web address]
[2019-05-25 16:10] LABS: ABSOLUTE EOSINOPHILS # (AUTO) 0.2 10^3/uL (0.0-0.6); ABSOLUTE LYMPHOCYTES (AUTO) 0.8 10^3/uL (0.5-4.7); ABSOLUTE MONOCYTES (AUTO) 0.4 10^3/uL (0.1-1.4); ABSOLUTE NEUT (AUTO) 4.1 10^3/uL (1.7-8.2); BASOPHILS % (AUTO) 0.7 % (0-2); HEMATOCRIT 40.3 % (37.9-51.0); HEMOGLOBIN 13.8 g/dL (13.5-17.0); MEAN CORPUSCULAR HEMOGLOBIN 27.5 pg (27.0-33.4); MEAN CORPUSCULAR HGB CONC 34.2 g/dL (32.0-36.0); MEAN CORPUSCULAR VOLUME 81 fl (80-97); MONOCYTES % (AUTO) 6.6 % (3-13); PLATELET COUNT 224 10^3/uL (150-450); RED CELL DISTRIBUTION WIDTH 15.3 % (11.5-14.0); SEGMENTED NEUTROPHILS % (AUTO) 74.7 % (42-78); TOTAL CELLS COUNTED % (AUTO) 100 %; WHITE BLOOD COUNT 5.4 10^3/uL (4.0-10.5)
[2019-05-25 16:16] LABS: ALBUMIN 4.5 g/dL (3.5-5.0); ALKALINE PHOSPHATASE 121 U/L (38-126); ANION GAP 11 (5-19); ASPARTATE AMINO TRANSFERASE 56 U/L (17-59); BILIRUBIN,DIRECT 0.2 mg/dL (0.0-0.4); BILIRUBIN,TOTAL 0.6 mg/dL (0.2-1.3); BLOOD UREA NITROGEN 6 mg/dL (7-20); CALCIUM 9.9 mg/dL (8.4-10.2); CARBON DIOXIDE 24 mmol/L (22-30); CHLORIDE 101 mmol/L (98-107); GLUCOSE 111 mg/dL (75-110); TOTAL PROTEIN 8.2 g/dL (6.3-8.2)
[2019-05-25] MEDS ORDERED: HYDROMORPHONE HCL INJ/PF 2 MG/ML AMPULE IV ONE ×2 (17:31→19:14)
[2019-05-25] MEDS ORDERED: ONDANSETRON HCL INJ/PF 4 MG/2 ML SDV IV ONE (17:31)
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
--- NOTE | 2019-05-25 18:26 | RADIOLOGY REPORT (SQ) ---
EXAM DESCRIPTION: CTA CHEST COMPLETED DATE/TIME: 05/25/2019 6:12 pm REASON FOR STUDY: chest pain, tachycardia, eval for PE COMPARISON: None. TECHNIQUE: CT scan of the chest performed using helical scanning technique with dynamic intravenous contrast injection. Images reviewed with lung, soft tissue and bone windows. Reconstructed coronal and sagittal MPR images reviewed. Additional 3 dimensional post-processing performed to develop Maximal Intensity Projection images (UT P). All images stored on PACS. All CT scanners at this facility use dose modulation, iterative reconstruction, and/or weight based d osing when appropriate to reduce radiation dose to as low as reasonably achievable (ALARA). [facility]: Dose Right [facility]: CareDose [facility]: Dose Right [facility]: Teradose 4D [facility]: CityIN CONTRAST TYPE AND DOSE: contrast/concentration: Isovue 350.00 mg/ml; Total Contrast Delivered: 70.0 ml; Total Saline Delivered: 75.0 ml Contrast bolus adequate for pulmonary arteries and aorta. RENAL FUNCTION: BUN 6 creatinine 0.87. RADIATION DOSE: CT Rad equipment meets quality standard of care and radiation dose reduction techniq ues were employed. CTDIvol: 19.8 - 25.9 mGy. DLP: 942 mGy-cm. . LIMITATIONS: None. FINDINGS: LUNGS AND PLEURA: No masses, infiltrates, or pneumothorax. No pleural effusions or pleura l calcifications. AORTA AND GREAT VESSELS: No aneurysm. No dissection. HEART: No pericardial effusion. No significant coronary artery calcifications. PULMONARY ARTERIES: No emboli visualized in the main pulmonary arteries or the segmental branches. HILAR AND MEDIASTINAL STRUCTURES: No identified masses or abnormal nodes. HARDWARE: None in the chest. UPPER ABDOMEN: Renal calculi. Limited exam. THYROID AND OTHER SOFT TISSUES: No masses. No adenopathy. BONES: No acute or significant finding. 3D MIPS: Confirm above findings. OTHER: No other significant finding. IMPRESSION: NORMAL CTA OF THE CHEST. NO PULMONARY EMBOLI. COMMENT: Quality ID # [id number]: Final reports with documentation of one or more dose reduction techniques (e.g., Automated exposure control, adjustment of the mA and/or kV according to patient size, use of iterative reconstruction technique) TECHNICAL DOCUMENTATION: JOB ID: [id number] [employer]- All Rights Reserved Reading location - IP/workstation name: [email or web address]
[2019-05-25] MEDS ORDERED: OXYCODONE HCL IR 5 MG TABLET PO ONE (21:55)
[2019-05-25 22:23] VITALS: BP 166/108
--- NOTE | 2019-05-25 23:38 | EKG REPORT ---
SEVERITY:- NORMAL ECG - SINUS RHYTHM : Confirmed by: Bharat Lopez 25-May-2019 23:38:08
== END 2019-05-25 22:23 | disposition home or self-care (01) ==
LOC: ER 14:39
DX: R07.89 Other chest pain (principal); R07.9 Chest pain, unspecified; R20.0 Anesthesia of skin; M25.512 Pain in left shoulder; M79.602 Pain in left arm; R05 Cough; R06.02 Shortness of breath; R11.10 Vomiting, unspecified; Z88.0 Allergy status to penicillin; Z88.8 Allergy status to other drugs, medicaments and biological substances; Z79.899 Other long term (current) drug therapy; I10 Essential (primary) hypertension
CPT/HCPCS: 93005; 96376; 99285; 96374; 96375; 36415; 83690; 85025; 80053; 84484; 71046; 71275; 93010; S0119; J1170; J2405

== ENCOUNTER 2019-06-06 23:46 | Emergency (ER) | payer OTHER, MEDICARE ==
[2019-06-07] MEDS ORDERED: HYDROMORPHONE HCL INJ/PF 2 MG/ML AMPULE IV ONE ×3 (00:02→03:48)
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
[2019-06-07] MEDS ORDERED: ONDANSETRON HCL INJ/PF 4 MG/2 ML SDV IV ONE ×2 (00:34→02:00)
[2019-06-07 00:42] LABS: ABSOLUTE BASOPHILS # (AUTO) 0.1 10^3/uL (0.0-0.2); ABSOLUTE EOSINOPHILS # (AUTO) 0.1 10^3/uL (0.0-0.6); ABSOLUTE LYMPHOCYTES (AUTO) 3.6 10^3/uL (0.5-4.7); ABSOLUTE MONOCYTES (AUTO) 0.7 10^3/uL (0.1-1.4); ABSOLUTE NEUT (AUTO) 5.3 10^3/uL (1.7-8.2); BASOPHILS % (AUTO) 1.3 % (0-2); EOSINOPHILS % (AUTO) 1.3 % (0-6); HEMATOCRIT 41.8 % (37.9-51.0); HEMOGLOBIN 14.4 g/dL (13.5-17.0); LYMPHOCYTES % (AUTO) 36.5 % (13-45); MEAN CORPUSCULAR HGB CONC 34.3 g/dL (32.0-36.0); MEAN CORPUSCULAR VOLUME 82 fl (80-97); MONOCYTES % (AUTO) 7.4 % (3-13); PLATELET COUNT 256 10^3/uL (150-450); RED BLOOD COUNT 5.13 10^6/uL (4.35-5.55); RED CELL DISTRIBUTION WIDTH 15.5 % (11.5-14.0); SEGMENTED NEUTROPHILS % (AUTO) 53.5 % (42-78); TOTAL CELLS COUNTED % (AUTO) 100 %
[2019-06-07 02:13] LABS: ALBUMIN 4.6 g/dL (3.5-5.0); ALKALINE PHOSPHATASE 102 U/L (38-126); ANION GAP 11 (5-19); ASPARTATE AMINO TRANSFERASE 33 U/L (17-59); BILIRUBIN,TOTAL 0.6 mg/dL (0.2-1.3); BLOOD UREA NITROGEN 14 mg/dL (7-20); CALCIUM 9.5 mg/dL (8.4-10.2); CARBON DIOXIDE 25 mmol/L (22-30); CHLORIDE 103 mmol/L (98-107); GLUCOSE 110 mg/dL (75-110); TOTAL PROTEIN 8.1 g/dL (6.3-8.2)
[2019-06-07] MEDS ORDERED: DEXAMETHASONE SOD PHOS INJ 10 MG/1 ML VIAL IV ONE (03:47)
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
[2019-06-07] MEDS ORDERED: HYDROCHLOROTHIAZIDE 12.5 MG TABLET PO ONE (04:29)
[2019-06-07] MEDS ORDERED: AMLODIPINE BESYLATE 10 MG TABLET PO ONE (04:29)
[2019-06-07 04:32] VITALS: BP 158/114
== END 2019-06-07 05:17 | disposition short-term general hospital (02) ==
LOC: ER 23:46
DX: M54.42 Lumbago with sciatica, left side (principal); M54.41 Lumbago with sciatica, right side; R15.9 Full incontinence of feces; R32 Unspecified urinary incontinence; R20.0 Anesthesia of skin; R20.2 Paresthesia of skin; R25.2 Cramp and spasm; I10 Essential (primary) hypertension; Z79.899 Other long term (current) drug therapy; Z79.891 Long term (current) use of opiate analgesic; Z88.0 Allergy status to penicillin; Z88.8 Allergy status to other drugs, medicaments and biological substances; Z88.6 Allergy status to analgesic agent; Z88.5 Allergy status to narcotic agent
CPT/HCPCS: 96376; 99284; 96374; 96375; 36415; 85025; 80053; J1170; J2405; J1100

== ENCOUNTER 2019-07-11 00:44 | Emergency (ER) | payer OTHER, MEDICARE ==
[2019-07-11] MEDS ORDERED: ONDANSETRON HCL INJ/PF 4 MG/2 ML SDV IV ONE (01:00)
[2019-07-11] MEDS ORDERED: HYDROMORPHONE HCL INJ/PF 2 MG/ML AMPULE IV ONE ×3 (01:00→03:40)
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
[2019-07-11 02:00] LABS: ABSOLUTE BASOPHILS # (AUTO) 0.1 10^3/uL (0.0-0.2); ABSOLUTE EOSINOPHILS # (AUTO) 0.3 10^3/uL (0.0-0.6); ABSOLUTE LYMPHOCYTES (AUTO) 2.8 10^3/uL (0.5-4.7); ABSOLUTE MONOCYTES (AUTO) 0.5 10^3/uL (0.1-1.4); ABSOLUTE NEUT (AUTO) 3.5 10^3/uL (1.7-8.2); BASOPHILS % (AUTO) 1.3 % (0-2); EOSINOPHILS % (AUTO) 3.8 % (0-6); HEMOGLOBIN 13.3 g/dL (13.5-17.0); LYMPHOCYTES % (AUTO) 39.2 % (13-45); MEAN CORPUSCULAR HEMOGLOBIN 27.7 pg (27.0-33.4); MEAN CORPUSCULAR HGB CONC 33.3 g/dL (32.0-36.0); MEAN CORPUSCULAR VOLUME 83 fl (80-97); MONOCYTES % (AUTO) 7.1 % (3-13); PLATELET COUNT 226 10^3/uL (150-450); RED CELL DISTRIBUTION WIDTH 15.3 % (11.5-14.0); SEGMENTED NEUTROPHILS % (AUTO) 48.6 % (42-78); TOTAL CELLS COUNTED % (AUTO) 100 %; WHITE BLOOD COUNT 7.2 10^3/uL (4.0-10.5)
[2019-07-11 02:30] LABS: ANION GAP 11 (5-19); BLOOD UREA NITROGEN 11 mg/dL (7-20); CALCIUM 9.5 mg/dL (8.4-10.2); CARBON DIOXIDE 25 mmol/L (22-30); CHLORIDE 104 mmol/L (98-107); GLUCOSE 119 mg/dL (75-110); POTASSIUM 4.1 mmol/L (3.6-5.0)
[2019-07-11 02:43] LABS: APPEARANCE,URINE CLEAR; BILIRUBIN,URINE NEGATIVE (NEGATIVE); COLOR,URINE YELLOW; GLUCOSE, URINE NEGATIVE (NEGATIVE); KETONES,URINE NEGATIVE (NEGATIVE); LEUKOCYTE ESTERASE,URINE NEGATIVE (NEGATIVE); NITRITE,URINE NEGATIVE (NEGATIVE); PROTEIN,URINE NEGATIVE (NEGATIVE); URINE SPECIFIC GRAVITY 1.021; UROBILINOGEN,URINE NEGATIVE mg/dL (<2.0)
[2019-07-11 03:48] VITALS: BP 139/92
== END 2019-07-11 04:02 | disposition home or self-care (01) ==
LOC: ER 00:44
DX: R31.9 Hematuria, unspecified (principal); R10.30 Lower abdominal pain, unspecified; R11.2 Nausea with vomiting, unspecified; Z87.442 Personal history of urinary calculi; Z88.0 Allergy status to penicillin; Z88.8 Allergy status to other drugs, medicaments and biological substances; I10 Essential (primary) hypertension; Z79.899 Other long term (current) drug therapy
CPT/HCPCS: 96376; 99284; 96374; 96375; 36415; 85025; 80048; 81001; J1170; J2405

== ENCOUNTER 2019-07-19 23:00 | Emergency (ER) | payer OTHER, MEDICARE ==
--- NOTE | 2019-07-20 00:22 | RADIOLOGY REPORT (SQ) ---
CLINICAL INDICATION: flank pain, eval for stone. . TECHNIQUE: Noncontrast spiral axial CT imaging was obtained of the abdomen and pelvis with multiplanar reconstructions. This exam was performed according to our departmental dose-optimization program, which includes automated exposure control, adjustment of the mA and/or kV according to patient size and/or use of iterative reconstruction techniques. COMPARISON: May 08, 2019. CORRELATION: None. FINDINGS: Abdomen: The lung bases are grossly clear. The heart is of normal size. No evidence of pleural or pericardial fluid. The liver is mildly heterogeneous. The gallbladder is surgically absent. The pancreas is of grossly normal contour on this noncontrast examination. The spleen is unremarkable. The adrenals are unremarkable. The kidneys there is a nonobstructing nephrolithiasis bilaterally. These calculi measure up to approximately 6 mm. These are present previously. No obstructive uropathy hydronephrosis or hydroureter. No bladder calculi.. There is no evidence of free air. No free fluid. No bulky adenopathy. Abdominal aorta is nonaneurysmal. Pelvis: The bowel is nonobstructed. The bowel is unopacified with oral contrast. Pelvic contents demonstrate phleboliths.. The appendix is not seen. 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 IMPRESSION: Nonobstructing nephrolithiasis. No obstructive uropathy hydronephrosis or hydroureter..
[2019-07-20 00:27] LABS: APPEARANCE,URINE CLEAR; BILIRUBIN,URINE NEGATIVE (NEGATIVE); COLOR,URINE YELLOW; GLUCOSE, URINE NEGATIVE (NEGATIVE); KETONES,URINE NEGATIVE (NEGATIVE); LEUKOCYTE ESTERASE,URINE NEGATIVE (NEGATIVE); NITRITE,URINE NEGATIVE (NEGATIVE); PROTEIN,URINE NEGATIVE (NEGATIVE); UROBILINOGEN,URINE NEGATIVE mg/dL (<2.0)
[2019-07-20] MEDS ORDERED: METHOCARBAMOL 500 MG TABLET PO ONE (00:46)
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
[2019-07-20 01:21] VITALS: BP 148/95
== END 2019-07-20 01:16 | disposition home or self-care (01) ==
LOC: ER 23:00
DX: R10.9 Unspecified abdominal pain (principal); R31.9 Hematuria, unspecified; R11.2 Nausea with vomiting, unspecified; Z79.899 Other long term (current) drug therapy; Z88.0 Allergy status to penicillin; Z88.8 Allergy status to other drugs, medicaments and biological substances; I10 Essential (primary) hypertension; Z87.442 Personal history of urinary calculi
CPT/HCPCS: 74176; 81001; 99284

== ENCOUNTER 2019-08-26 09:28 | Emergency (ER) | payer OTHER, MEDICARE ==
[2019-08-26] MEDS ORDERED: HYDROMORPHONE HCL INJ/PF 2 MG/ML AMPULE IM ONE (09:42)
[2019-08-26] MEDS ORDERED: DEXAMETHASONE SOD PHOS INJ 10 MG/1 ML VIAL IM ONE (09:42)
[2019-08-26 09:45] VITALS: BP 157/90
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
[2019-08-26 10:16] LABS: APPEARANCE,URINE SLIGHTLY-CLOUDY; BILIRUBIN,URINE NEGATIVE (NEGATIVE); CALCIUM OXALATE CRYSTALS,URINE MANY /HPF; COLOR,URINE YELLOW; GLUCOSE, URINE NEGATIVE (NEGATIVE); KETONES,URINE NEGATIVE (NEGATIVE); PROTEIN,URINE 30 mg/dL (NEGATIVE); UROBILINOGEN,URINE NEGATIVE mg/dL (<2.0)
== END 2019-08-26 10:28 | disposition home or self-care (01) ==
LOC: ER 09:28
DX: G89.29 Other chronic pain (principal); M54.5 Low back pain; I10 Essential (primary) hypertension; Z88.0 Allergy status to penicillin; Z88.6 Allergy status to analgesic agent; Z90.49 Acquired absence of other specified parts of digestive tract; Z89.512 Acquired absence of left leg below knee
CPT/HCPCS: 99283; 96372; 81001; J1170; J1100

== ENCOUNTER 2019-09-20 02:54 | Emergency (ER) | payer OTHER, MEDICARE ==
[2019-09-20] MEDS ORDERED: ACETAMINOPHEN 325 MG TABLET PO ONE (03:39)
[2019-09-20] MEDS ORDERED: BUPIVACAINE HCL 0.5 % INJ/PF 30 ML SDV INJ ONE (09:04)
[2019-09-20] MEDS ORDERED: HYDROMORPHONE HCL INJ/PF 2 MG/ML AMPULE IM ONE (09:10)
[2019-09-20] MEDS ORDERED: LIDOCAINE 2% VISCOUS SOLN 15 ML UDCUP PO ONE (09:12)
[2019-09-20 09:43] VITALS: BP 159/114
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
== END 2019-09-20 10:12 | disposition home or self-care (01) ==
LOC: ER 02:54
DX: S02.5XXB Fracture of tooth (traumatic), initial encounter for open fracture (principal); K08.89 Other specified disorders of teeth and supporting structures; M54.9 Dorsalgia, unspecified; G89.29 Other chronic pain; X58.XXXA Exposure to other specified factors, initial encounter; Z79.899 Other long term (current) drug therapy; I10 Essential (primary) hypertension
CPT/HCPCS: 99282; 96372; J3490; J1170

== ENCOUNTER 2019-10-07 19:38 | Emergency (ER) | payer OTHER, MEDICARE ==
[2019-10-07] MEDS ORDERED: ONDANSETRON HCL INJ/PF 4 MG/2 ML SDV IV ONE (19:45)
[2019-10-07] MEDS ORDERED: HYDROMORPHONE HCL INJ/PF 2 MG/ML AMPULE IV ONE (19:50)
[2019-10-07] MEDS ORDERED: LIDOCAINE 2% VISCOUS SOLN 15 ML UDCUP PO ONE (19:50)
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
[2019-10-07 20:05] VITALS: BP 169/105
== END 2019-10-07 20:10 | disposition home or self-care (01) ==
LOC: ER 19:38
DX: K08.89 Other specified disorders of teeth and supporting structures (principal); K02.9 Dental caries, unspecified; R68.84 Jaw pain; Z88.8 Allergy status to other drugs, medicaments and biological substances; Z88.0 Allergy status to penicillin; F17.200 Nicotine dependence, unspecified, uncomplicated; I10 Essential (primary) hypertension; Z79.899 Other long term (current) drug therapy
CPT/HCPCS: 99282; 96374; J3490; J1170

== ENCOUNTER 2019-10-28 06:48 | Emergency (ER) | payer OTHER, MEDICARE ==
[2019-10-28] MEDS ORDERED: ONDANSETRON HCL INJ/PF 4 MG/2 ML SDV IV ONE ×2 (07:10→09:28)
[2019-10-28] MEDS ORDERED: HYDROMORPHONE HCL INJ/PF 2 MG/ML AMPULE IV ONE ×3 (09:11→11:42)
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
[2019-10-28 09:44] LABS: ABSOLUTE BASOPHILS # (AUTO) 0.1 10^3/uL (0.0-0.2); ABSOLUTE EOSINOPHILS # (AUTO) 0.3 10^3/uL (0.0-0.6); ABSOLUTE LYMPHOCYTES (AUTO) 2.7 10^3/uL (0.5-4.7); ABSOLUTE MONOCYTES (AUTO) 0.5 10^3/uL (0.1-1.4); ABSOLUTE NEUT (AUTO) 2.1 10^3/uL (1.7-8.2); BASOPHILS % (AUTO) 1.3 % (0-2); EOSINOPHILS % (AUTO) 5.2 % (0-6); HEMATOCRIT 39.6 % (37.9-51.0); HEMOGLOBIN 13.2 g/dL (13.5-17.0); LYMPHOCYTES % (AUTO) 47.5 % (13-45); MEAN CORPUSCULAR HEMOGLOBIN 26.7 pg (27.0-33.4); MEAN CORPUSCULAR HGB CONC 33.4 g/dL (32.0-36.0); MEAN CORPUSCULAR VOLUME 80 fl (80-97); MONOCYTES % (AUTO) 9.3 % (3-13); PLATELET COUNT 204 10^3/uL (150-450); RED BLOOD COUNT 4.94 10^6/uL (4.35-5.55); RED CELL DISTRIBUTION WIDTH 14.6 % (11.5-14.0); SEGMENTED NEUTROPHILS % (AUTO) 36.7 % (42-78); TOTAL CELLS COUNTED % (AUTO) 100 %; WHITE BLOOD COUNT 5.6 10^3/uL (4.0-10.5)
[2019-10-28 09:54] LABS: ALBUMIN 4.3 g/dL (3.5-5.0); ALKALINE PHOSPHATASE 102 U/L (38-126); ANION GAP 8 (5-19); ASPARTATE AMINO TRANSFERASE 65 U/L (17-59); BILIRUBIN,TOTAL 0.4 mg/dL (0.2-1.3); BLOOD UREA NITROGEN 10 mg/dL (7-20); CALCIUM 9.3 mg/dL (8.4-10.2); CARBON DIOXIDE 25 mmol/L (22-30); CHLORIDE 101 mmol/L (98-107); GLUCOSE 110 mg/dL (75-110); POTASSIUM 4.1 mmol/L (3.6-5.0); TOTAL PROTEIN 8.2 g/dL (6.3-8.2)
--- NOTE | 2019-10-28 10:01 | RADIOLOGY REPORT (SQ) ---
EXAM DESCRIPTION: KUB/ABDOMEN (SINGLE VIEW) IMAGES COMPLETED DATE/TIME: 10/28/2019 9:35 am REASON FOR STUDY: L flank pain, hematuria COMPARISON: 05/06/2019 radiograph, CT 07/19/2019 NUMBER OF VIEWS: One view. TECHNIQUE: Supine radiographic image of the abdomen acquired. LIMITATIONS: None. FINDINGS: BOWEL GAS PATTERN: Nonspecific. Moderate formed stool throughout the colon. CALCIFICATIONS: 5 mm calcific density overlies left kidney, stable from prior. Scattered additional calcific densities overlie pelvis, likely phleboliths and also stable. SOFT TISSUES: No gross mass or suggestion of organomegaly. HARDWARE: Cholecystectomy clips. BONES: No acute fracture. No worrisome bone lesions. OTHER: No other significant finding. IMPRESSION: 1. Stable 5 mm left sided renal stone. 2. Prior cholecystectomy. 3. Moderate formed stool throughout the colon. TECHNICAL DOCUMENTATION: JOB ID: [id number] 2010 [employer]- All Rights Reserved Reading location - IP/workstation name: [email or web address]
[2019-10-28 10:13] LABS: APPEARANCE,URINE SLIGHTLY-CLOUDY; BILIRUBIN,URINE NEGATIVE (NEGATIVE); CALCIUM OXALATE CRYSTALS,URINE MODERATE /HPF; COLOR,URINE YELLOW; GLUCOSE, URINE NEGATIVE (NEGATIVE); KETONES,URINE NEGATIVE (NEGATIVE); LEUKOCYTE ESTERASE,URINE NEGATIVE (NEGATIVE); NITRITE,URINE NEGATIVE (NEGATIVE); PROTEIN,URINE 30 mg/dL (NEGATIVE)
--- NOTE | 2019-10-28 11:19 | RADIOLOGY REPORT (SQ) ---
EXAM DESCRIPTION: U/S RETROPERITON (RENAL/AORTA) IMAGES COMPLETED DATE/TIME: 10/28/2019 11:06 am REASON FOR STUDY: L flank pain, hematuria COMPARISON: None. TECHNIQUE: Dynamic and static grayscale images acquired of the kidneys and bladder and recorded on P ACS. Additional selected color Doppler and spectral images recorded. LIMITATIONS: None. FINDINGS: RIGHT KIDNEY: Mild asymmetric small size measuring 8.6 cm. Normal echogenicity. No solid or suspicious masses. No hydronephrosis. Echogenic focus in interpolar region measuring approximate ly 1.2 cm. LEFT KIDNEY: Normal size normal size measuring 10.0 cm. Normal echogenicity. No solid or suspicious masses. No hydronephrosis. Echogenic focus in the interpolar region compatible with stone measuring approximately 1.9 cm. OTHER FINDINGS: IMPRESSION: 1. No hydronephrosis. 2. Echogenic foci bilaterally compatible with known renal stones. TECHNICAL DOCUMENTATION: JOB ID: [id number] 2010 [employer]- All Rights Reserved Reading location - IP/workstation name: [email or web address]
[2019-10-28 12:17] VITALS: BP 159/114
== END 2019-10-28 12:18 | disposition home or self-care (01) ==
LOC: ER 06:48
DX: N20.0 Calculus of kidney (principal); R31.9 Hematuria, unspecified; R10.9 Unspecified abdominal pain; R11.2 Nausea with vomiting, unspecified; Z87.442 Personal history of urinary calculi; Z90.49 Acquired absence of other specified parts of digestive tract
CPT/HCPCS: 96376; 99284; 96374; 96375; 36415; 83690; 85025; 80053; 81001; 74018; 76770; J1170; J2405

== ENCOUNTER 2019-11-04 13:55 | Emergency (ER) | payer MEDICARE, OTHER ==
[2019-11-04 14:03] VITALS: BP 139/95
[2019-11-04] MEDS ORDERED: PREDNISONE 20 MG TABLET PO ONE (14:10)
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
== END 2019-11-04 14:18 | disposition home or self-care (01) ==
LOC: ER 13:55
DX: M54.31 Sciatica, right side (principal); I10 Essential (primary) hypertension
CPT/HCPCS: 99283; A9270; J7512

== ENCOUNTER 2019-11-13 03:06 | Emergency (ER) | payer OTHER, MEDICARE ==
[2019-11-13] MEDS ORDERED: HYDROMORPHONE HCL INJ/PF 2 MG/ML AMPULE IM ONE ×2 (06:14→07:17)
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
--- NOTE | 2019-11-13 07:00 | RADIOLOGY REPORT (SQ) ---
EXAM: CT maxillofacial without intravenous contrast CLINICAL DATA: 44-year-old male status post fall with facial pain. TECHNICAL DATA: Axial CT of the facial bones was performed without intravenous contrast with sagittal and coronal reformatted images. The CT study is performed according to ALARA (as low as reasonably achievable) or ALARA/IMAGE GENTLY, with automatic adjustment of mA and/or kV according to patient size. Performed on: 11/13/2019 at 6:29 AM Comparison: Prior head CT performed on 11/14/2017. FINDINGS: There is no evidence of acute facial bone fracture. The mandible is intact. The temporomandibular joints are preserved. Both globes are intact and are symmetric. The extraocular muscles and optic nerves are symmetric. The intraconal fat is preserved. There is no evidence of intraorbital emphysema. There is trace mucosal thickening of the paranasal sinuses. The nasal bones are intact. The bony nasal septum is midline. The anterior maxillary spine is intact. Mastoid air cells and middle ear cavities are clear. There is no significant soft tissue swelling identified. IMPRESSION: 1. No evidence of acute facial bone pathology. 2. No focal soft tissue abnormalities are identified.
[2019-11-13 07:51] VITALS: BP 171/91
== END 2019-11-13 07:51 | disposition home or self-care (01) ==
LOC: ER 03:06
DX: S00.83XA Contusion of other part of head, initial encounter (principal); S02.5XXA Fracture of tooth (traumatic), initial encounter for closed fracture; S09.93XA Unspecified injury of face, initial encounter; R51 Headache; W01.0XXA Fall on same level from slipping, tripping and stumbling without subsequent striking against object, initial encounter; Z88.0 Allergy status to penicillin; Z88.8 Allergy status to other drugs, medicaments and biological substances; I10 Essential (primary) hypertension
CPT/HCPCS: 99283; 96372; 70486; J1170

== ENCOUNTER 2020-01-02 19:23 | Emergency (ER) | payer OTHER, MEDICARE ==
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
--- NOTE | 2020-01-02 23:18 | RADIOLOGY REPORT (SQ) ---
EXAM DESCRIPTION: MR LUMBAR SPINE WITHOUT IV CONTRAST COMPLETED DATE/TME: 01/02/2020 21:33 CLINICAL HISTORY: 44 years, Male, cauda equana symptoms, urinary incontience COMPARISON: Prior CT dated 04/06/2019 TECHNIQUE: Multiplanar, multisequence MR images of the lumbar spine were obtained without the use of intravenous contrast. Images stored on PACS. LIMITATIONS: None. FINDINGS: Sorter Packer images show no suspicious finding. However, there is a subcentimeter bright T2 signal lesion located within the upper pole of the left kidney which is too small to accurately characterize though most likely indicative of a tiny simple renal cyst. Conus medullaris is normal in signal and morphology, terminating at the T12 level. Anterior and posterior ligamentous structures are intact. No epidural fluid collections. Lumbar vertebral body heights and alignments are maintained. No foci of abnormal bone marrow edema signal are identified. Minimal disc desiccation is noted at L4-L5. Otherwise, degenerative changes are as follows: T10-L3 appear normal. At L3-L4, there is minimal disc bulge without foraminal or central canal stenosis. At L4-L5, there is mild disc bulge with superimposed small central disc protrusion. This results in minimal bilateral neural foraminal stenosis. No central canal stenosis. At L5-S1, there is minimal disc bulge without foraminal or central canal stenosis. IMPRESSION: Minimal lumbar spondylosis, as above described. No significant central canal stenosis at any level to explain the provided history. copyright 2010 [employer]- All Rights Reserved
[2020-01-03 03:08] LABS: APPEARANCE,URINE SLIGHTLY-CLOUDY; BILIRUBIN,URINE NEGATIVE (NEGATIVE); COLOR,URINE YELLOW; GLUCOSE, URINE NEGATIVE (NEGATIVE); KETONES,URINE NEGATIVE (NEGATIVE); LEUKOCYTE ESTERASE,URINE NEGATIVE (NEGATIVE); NITRITE,URINE NEGATIVE (NEGATIVE); PROTEIN,URINE NEGATIVE (NEGATIVE); URINE SPECIFIC GRAVITY 1.028; UROBILINOGEN,URINE NEGATIVE mg/dL (<2.0)
[2020-01-03] MEDS ORDERED: HYDROMORPHONE HCL INJ/PF 2 MG/ML AMPULE IM ONE (04:43)
--- NOTE | 2020-01-03 05:57 | RADIOLOGY REPORT (SQ) ---
EXAM DESCRIPTION: CT ABDOMEN PELVIS WITHOUT IV CONTRAST COMPLETED DATE/TME: 01/03/2020 04:42 CLINICAL HISTORY: 44 years Male, hematuria right flank pain Comparison: 07/19/19, 05/08/19 Technique: No contrast. Coronal and sagittal reformat. This exam was performed according to our departmental dose-optimization program, which includes automated exposure control, adjustment of the mA and/or kV according to patient size and/or use of iterative reconstruction technique.[facility]: Dose Right [facility]: CareDose [facility]: Dose Right [facility]: Teradose 4D [facility]: Attune RTD LIMITATIONS: None Findings: Avascular vascular necrosis pattern of bilateral femoral heads with minimal subcapital fracture on the right. Cholecystectomy clips. Hepatic steatosis. Bilateral nephrolithiasis measures up to 0.6 cm on the left. No hydronephrosis a Stool retention. nd no hydroureter. Minimal bilateral inguinal fat only hernia. No ascites. No pneumoperitoneum. No evidence of appendicitis. Appendix not definitively discerned/appendectomy. No gross evidence of gallbladder inflammation, hepatobiliary obstruction, or portal vein defect. No bowel obstruction. No evidence of abdominal aortic aneurysm. Unenhanced lower thorax, abdominopelvic structures, and musculoskeleton appear otherwise grossly unremarkable. Impression: 1. 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 2. Bilateral nephrolithiasis. No hydronephrosis and no hydroureter 3. Hepatic steatosis.
[2020-01-03] MEDS ORDERED: HYDROMORPHONE HCL INJ/PF 2 MG/ML AMPULE IV STA (06:16)
[2020-01-03] MEDS ORDERED: PREDNISONE 20 MG TABLET PO ONE (06:23)
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
[2020-01-03 07:53] VITALS: BP 160/124
== END 2020-01-03 07:45 | disposition home or self-care (01) ==
LOC: ER 19:23
DX: N28.9 Disorder of kidney and ureter, unspecified (principal); R31.0 Gross hematuria; M54.5 Low back pain; G89.29 Other chronic pain; I10 Essential (primary) hypertension; M54.9 Dorsalgia, unspecified; R20.0 Anesthesia of skin; Z79.899 Other long term (current) drug therapy; Z88.0 Allergy status to penicillin; Z88.8 Allergy status to other drugs, medicaments and biological substances
CPT/HCPCS: 99285; 96372; 96374; 81001; 72148; 74176; J1170; J7512

== ENCOUNTER 2020-01-30 19:17 | Emergency (ER) | payer MEDICARE ==
[2020-01-30 20:34] VITALS: BP 180/110
[2020-01-30] MEDS ORDERED: HYDROMORPHONE HCL INJ/PF 2 MG/ML AMPULE IM ONE (20:41)
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
[2020-01-30] MEDS ORDERED: PROMETHAZINE HCL 25 MG TABLET PO ONE (20:44)
== END 2020-01-30 20:57 | disposition home or self-care (01) ==
LOC: ER 19:17
DX: G89.29 Other chronic pain (principal); M54.5 Low back pain; I10 Essential (primary) hypertension; Z79.899 Other long term (current) drug therapy; Z89.512 Acquired absence of left leg below knee; Z88.0 Allergy status to penicillin; Z88.8 Allergy status to other drugs, medicaments and biological substances; Z88.6 Allergy status to analgesic agent; Z88.5 Allergy status to narcotic agent
CPT/HCPCS: 99283; 96372; J1170; A9270

== ENCOUNTER 2020-01-31 21:26 | Emergency (ER) | payer OTHER, MEDICARE ==
[2020-01-31 21:39] VITALS: BP 171/110
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
[2020-01-31] MEDS ORDERED: HYDROMORPHONE HCL INJ/PF 2 MG/ML AMPULE IM ONE (23:09)
[2020-01-31] MEDS ORDERED: PROMETHAZINE HCL 25 MG TABLET PO ONE (23:09)
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
== END 2020-01-31 23:42 | disposition home or self-care (01) ==
LOC: ER 21:26
DX: G89.29 Other chronic pain (principal); M54.5 Low back pain; I10 Essential (primary) hypertension; Z89.512 Acquired absence of left leg below knee
CPT/HCPCS: 99284; 96372; J1170

== ENCOUNTER 2020-02-05 05:18 | Inpatient (IN) | payer MEDICARE ==
[2020-01-31 11:15] LABS: HEMATOCRIT 41.9 % (37.9-51.0); MEAN CORPUSCULAR HEMOGLOBIN 27.3 pg (27.0-33.4); MEAN CORPUSCULAR HGB CONC 33.3 g/dL (32.0-36.0); MEAN CORPUSCULAR VOLUME 82 fl (80-97); PLATELET COUNT 270 10^3/uL (150-450); RED BLOOD COUNT 5.12 10^6/uL (4.35-5.55); RED CELL DISTRIBUTION WIDTH 15.9 % (11.5-14.0); WHITE BLOOD COUNT 6.5 10^3/uL (4.0-10.5)
[2020-01-31 11:22] LABS: APPEARANCE,URINE SLIGHTLY-CLOUDY; BILIRUBIN,URINE NEGATIVE (NEGATIVE); COLOR,URINE YELLOW; GLUCOSE, URINE NEGATIVE (NEGATIVE); KETONES,URINE NEGATIVE (NEGATIVE); LEUKOCYTE ESTERASE,URINE NEGATIVE (NEGATIVE); NITRITE,URINE NEGATIVE (NEGATIVE); PROTEIN,URINE 30 mg/dL (NEGATIVE); URINE SPECIFIC GRAVITY 1.018; UROBILINOGEN,URINE NEGATIVE mg/dL (<2.0)
[2020-01-31 11:41] LABS: ANION GAP 11 (5-19); BLOOD UREA NITROGEN 6 mg/dL (7-20); CALCIUM 9.6 mg/dL (8.4-10.2); CARBON DIOXIDE 24 mmol/L (22-30); CHLORIDE 103 mmol/L (98-107); GLUCOSE 98 mg/dL (75-110); POTASSIUM 4.2 mmol/L (3.6-5.0)
[2020-01-31 11:44] LABS: ALCOHOL < 10 mg/dL (NONE DETECTED)
[2020-01-31 11:58] LABS: URINE AMPHETAMINES SCREEN NEGATIVE; URINE BARBITURATES SCREEN NEGATIVE; URINE BENZODIAZEPINES SCREEN NEGATIVE; URINE COCAINE SCREEN NEGATIVE; URINE MARIJUANA (THC) SCREEN NEGATIVE; URINE METHADONE SCREEN NEGATIVE; URINE PHENCYCLIDINE SCREEN NEGATIVE
--- NOTE | 2020-01-31 12:10 | RADIOLOGY REPORT (SQ) ---
EXAM DESCRIPTION: CHEST PA/LATERAL IMAGES COMPLETED DATE/TIME: 01/31/2020 11:18 am REASON FOR STUDY: PRE-OP COMPARISON: 05/25/2019 TECHNIQUE: Frontal and lateral radiographic views of the chest acquired. NUMBER OF VIEWS: Two view. LIMITATIONS: None. FINDINGS: LUNGS AND PLEURA: No pneumothorax. No consolidation or pleural effusion. MEDIASTINUM AND HILAR STRUCTURES: Stable. HEART AND VASCULAR STRUCTURES: Stable. BONES: No acute findings. HARDWARE: None in the chest. OTHER: No other significant finding. IMPRESSION: NO ACUTE FINDINGS. TECHNICAL DOCUMENTATION: JOB ID: [id number] [place]-72 2010 [employer]- All Rights Reserved Reading location - IP/workstation name: [email or web address]
--- NOTE | 2020-02-01 00:55 | EKG REPORT ---
SEVERITY:- NORMAL ECG - SINUS RHYTHM : Confirmed by: Divine Crook MD 01-Feb-2020 00:54:23
[~2020-02-05 05:18] MED LIST changes: -CLINDAMYCIN 600 MG/D5W RTU 600 MG/50 ML RTUPB IV PRN; +CLINDAMYCIN 900 MG/D5W RTU 900 MG/50 ML RTUPB IV ONE; +CLINDAMYCIN 900 MG/D5W RTU 900 MG/50 ML RTUPB IV PRN; +LIDOCAINE 0.5% INJ-PF (5 MG/ML) 50 ML SDV SUBCUT PRN
[2020-02-05] MEDS ORDERED: BACITRACIN INJ 50,000 UNIT VIAL ONE (07:11)
[2020-02-05] MEDS ORDERED: BUPIVACAINE INJ/PF LIPOSOME/PF 266 MG/20 ML SDV ONE (07:11)
[2020-02-05] MEDS ORDERED: HEPARIN SOD (PORCINE) 1,000 UNIT/ML 10 ML VIAL ONE (07:11)
[2020-02-05] MEDS ORDERED: BUPIVACAINE HCL 0.5 % INJ/PF 30 ML SDV ONE (07:11)
[2020-02-05] MEDS ORDERED: MINERAL OIL (STERILE) 10 ML VIAL ONE (07:11)
[2020-02-05] MEDS ORDERED: FENTANYL CITRATE INJ/PF 250 MCG/5 ML AMPULE ONE (07:17)
[2020-02-05] MEDS ORDERED: PROPOFOL INJ 200 MG/20 ML VIAL IV ONE (07:18)
[2020-02-05] MEDS ORDERED: EPHEDRINE SULFATE INJ 50 MG/1 ML AMPULE ONE (07:18)
[2020-02-05] MEDS ORDERED: MIDAZOLAM 2 MG/2 ML INJ ONE (07:18)
[2020-02-05] MEDS ORDERED: CYCLOBENZAPRINE HCL 10 MG TABLET PO PRN (07:42)
[2020-02-05] MEDS ORDERED: ACETAMINOPHEN 325 MG TABLET PO PRN (07:53)
[2020-02-05] MEDS ORDERED: MAGNESIUM HYDROXIDE SUSP 30 ML UDCUP PO PRN (07:54)
[2020-02-05] MEDS ORDERED: PROMETHAZINE HCL INJ 25 MG/1 ML VIAL IM PRN (07:54)
[2020-02-05] MEDS ORDERED: DIPHENHYDRAMINE HCL 50 MG/ML VIAL IV PRN (07:54)
[2020-02-05] MEDS ORDERED: DIPHENHYDRAMINE HCL 25 MG CAPSULE PO PRN (07:54)
[2020-02-05] MEDS ORDERED: OXYCODONE HCL IR 5 MG TABLET PO PRN ×2 (07:59→18:30)
[2020-02-05] MEDS ORDERED: OXYCODONE HCL IR 5 MG TABLET PO SCH ×2 (08:00→10:30)
[2020-02-05] MEDS ORDERED: FENTANYL CITRATE INJ/PF 100 MCG/2 ML AMPUL IV PRN ×3 (09:03)
[2020-02-05] MEDS ORDERED: PROMETHAZINE HCL INJ 25 MG/1 ML VIAL IV PRN ×2 (09:03)
--- NOTE | 2020-02-05 10:24 | Operative Report ---
Operative Report DATE OF SURGERY: 02/05/20 PREOPERATIVE DIAGNOSIS: L4-5 spondylolisthesis. L4-5 stenosis. L4-5 degenerat earnest disc disease. L4-5 radiculitis and instability POSTOPERATIVE DIAGNOSIS: L4-5 spondylolisthesis. L4-5 stenosis. L4-5 degenerative disc disease. L4-5 radiculitis and instability. S/P L4-5 anterior lateral interbody fusion with interbody spacer robotically assisted as well as L4-5 posterior fusion with instrumentation robotically assisted left iliac crest aspiration through a separate incision for bone marrow aspirate concentration to be used in the allograft and interbody space. OPERATION: L4-5 anterior lateral interbody fusion with interbody spacer robotically assisted as well as L4-5 posterior fusion with instrumentation robotically assisted left iliac crest aspiration through a separate incision for bone marrow aspirate concentration to be used in the allograft and interbody space. SURGEON: PETER CASTILLO 1ST MACHINE FILLER SHREDDER: GEORGE HUANG ANESTHESIA: GA COMPLICATIONS: None ESTIMATED BLOOD LOSS: 100 cc PROCEDURE: Patient is brought into the room placed under general anesthesia received 900 mg of clindamycin within 1 hour of cut time was placed on the Wesley table medial epicondyles and axillary areas are well-padded. Neuro monitoring leads for SSEP and cranial motor testing are placed on the patient as well as a Vaughn catheter is placed preoperatively. After appropriate surgical timeout the [employer] robot is utilized and on the right posterior superior iliac spine a pin is placed and attached to the robot. After obtaining registration imaging in the AP and oblique position and verification 6.5 x 50 mm screws x2 and 6.5 x 40 mm screws x2 screws are inserted using portal incisions on the right and the left at L4 and L5 bilaterally. Left iliac crest is aspirated at 2 different sites total of 50 cc of bone marrow aspirate are obtained and concentrated to be used an interbody spacer with the allograft. Attention was then paid to the left sided anterior lateral portal for entry into the disc space which is carried out under navigation guidance upon verification also with x-rays and then stimulation thresholds greater than 17 mA. Upon inserting the portal into the disc space at L4-5 fluoroscopy was used to verify the position as it did also to verify the screws position. Endplate renny and curettes and brushes are used to carry out a complete discectomy then the verify balloon is inserted to verify good contact with the endplates. Then the appropriate size mesh spacer is introduced into the interbody. The mesh spacer is soaked in bone marrow aspirate concentrate and is filled with bone graft showing good correction and good containment within the disc space at L4-5. Upon neuro monitoring testing and cranial motor testing found to be stable then the portal is removed anterior laterally and attention is then paid to the placement of the rods upon using the caliper device the appropriate length rods 45 mm on the right and 40 mm on the left were determined to be 40 mm rods on the right and on the left those are passed down and locked into position and final tightened. Then the tabs are removed and the portals are irrigated with copious amounts of irrigation and the posterior superior iliac spine pin connected to the robot is removed as well and the deep and superficial tissues were infiltrated with 1.3% Exparel 20 cc mixed with 20 cc of 0.5% bupivacaine plain. The portals are closed using 2-0 Vicryl and then Dermabond and Steri-Strips then 4 x 4's were used to cover the wounds on the right and the left and dressed with coverall tape. Please note that this procedure could not be done without the assistance of Gerber Elizalde working to assist with the placement of the screws positioning of the robot carrying out the aspiration through the left side iliac crest aspiration please also note that the iliac crest aspiration is carried out on the left side through a separate incision. Gerber Elizlade was instrumental throughout this whole process and I could not have done this procedure without his assistance as mentioned above.
--- NOTE | 2020-02-05 10:28 | RADIOLOGY REPORT (SQ) ---
EXAM DESCRIPTION: L SPINE 2 VIEWS; NO CHG FLUORO IMAGES COMPLETED DATE/TIME: 02/05/2020 10:06 am REASON FOR STUDY: L4-5 ROBOT ASSISTED FUSION M43.16 SPONDYLOLISTHESIS, LUMBAR REGION M54.5 LOW KAYLIE K PAIN M51.36 OTHER INTERVERTEBRAL DISC DEGENERATION, LUMBAR REGION COMPARISON: None. FLUOROSCOPY TIME: 0.7 minutes Spot images saved to PACS. TECHNIQUE: Intra-operative images acquired during surgical procedure to evaluate progress. NUMBER OF IMAGES: 4 LIMITATIONS: None. FINDINGS: Fluoroscopy was provided for intraoperative procedure. Please refer to the operative repo rt for further discussion. IMPRESSION: IMAGE(S) OBTAINED DURING PROCEDURE. COMMENT: Quality ID [id number]: Final reports for procedures using fluoroscopy that document radiation exp osure indices, or exposure time and number of fluorographic images (if radiation exposure indices are not available) Please consult full operative report of the attending physician for description of the procedure. TECHNICAL DOCUMENTATION: JOB ID: [id number] 2010 [employer]- All Rights Reserved Reading location - IP/workstation name: [email or web address]
--- NOTE | 2020-02-05 10:28 | RADIOLOGY REPORT (SQ) ---
EXAM DESCRIPTION: L SPINE 2 VIEWS; NO CHG FLUORO IMAGES COMPLETED DATE/TIME: 02/05/2020 10:06 am REASON FOR STUDY: L4-5 ROBOT ASSISTED FUSION M43.16 SPONDYLOLISTHESIS, LUMBAR REGION M54.5 LOW KAYLIE K PAIN M51.36 OTHER INTERVERTEBRAL DISC DEGENERATION, LUMBAR REGION COMPARISON: None. FLUOROSCOPY TIME: 0.7 minutes Spot images saved to PACS. TECHNIQUE: Intra-operative images acquired during surgical procedure to evaluate progress. NUMBER OF IMAGES: 4 LIMITATIONS: None. FINDINGS: Fluoroscopy was provided for intraoperative procedure. Please refer to the operative repo rt for further discussion. IMPRESSION: IMAGE(S) OBTAINED DURING PROCEDURE. COMMENT: Quality ID [id number]: Final reports for procedures using fluoroscopy that document radiation exp osure indices, or exposure time and number of fluorographic images (if radiation exposure indices are not available) Please consult full operative report of the attending physician for description of the procedure. TECHNICAL DOCUMENTATION: JOB ID: [id number] 2010 [employer]- All Rights Reserved Reading location - IP/workstation name: [email or web address]
[2020-02-05] MEDS ORDERED: FENTANYL CITRATE INJ/PF 100 MCG/2 ML AMPUL ONE (10:32)
[2020-02-05] MEDS ORDERED: FENTANYL CITRATE INJ/PF 100 MCG/2 ML AMPUL IV ONE (10:34)
[2020-02-05] MEDS ORDERED: METHOCARBAMOL INJ/PF 1000 MG/10 ML SDV ONE (10:42)
[2020-02-05] MEDS ORDERED: ACETAMINOPHEN 1,000 MG/100 ML RTUPB IV ONE (11:06)
[2020-02-05] MEDS ORDERED: OXYCODONE HCL SR 10 MG TABLET PO ONE (11:38)
[2020-02-05] MEDS ORDERED: OXYCODONE HCL IR 5 MG TABLET ONE (11:42)
[2020-02-05] MEDS ORDERED: OXYCODONE HCL IR 5 MG TABLET PO ONE ×2 (11:45→21:30)
[2020-02-05] MEDS ORDERED: HYDROMORPHONE HCL INJ/PF 2 MG/ML AMPULE ONE (12:09)
[2020-02-05] MEDS ORDERED: HYDROMORPHONE HCL INJ/PF 2 MG/ML AMPULE IV ONE (12:10)
[2020-02-05] MEDS: CLINDAMYCIN 600 MG/D5W RTU 600 MG/50 ML RTUPB IV SCH ×2 (14:40→21:25)
[2020-02-05] MEDS: SENNOSIDES/DOCUSATE 8.6-50 MG 1 EACH TABLET PO SCH ×2 (14:40→17:17)
[2020-02-05] MEDS ORDERED: GLYCOPYRROLATE 1 MG/5 ML VIAL ONE ×2 (15:07→15:08)
[2020-02-05] MEDS ORDERED: PHENYLEPHRINE HCL INJ/PF 10 MG/1 ML SDV ONE (15:07)
[2020-02-05] MEDS ORDERED: ONDANSETRON HCL INJ/PF 4 MG/2 ML SDV ONE ×2 (15:07→15:08)
[2020-02-05] MEDS ORDERED: DEXAMETHASONE SOD PHOSPHATE INJ 4 MG/1 ML VIAL ONE ×2 (15:07→15:08)
[2020-02-05] MEDS ORDERED: SUCCINYLCHOLINE CHLORIDE INJ 200 MG/10 ML VIAL ONE ×2 (15:07→15:08)
[2020-02-05] MEDS ORDERED: NEOSTIGMINE METHYLSULFATE 10 MG/10 ML VIAL ONE ×2 (15:07→15:08)
[2020-02-05] MEDS ORDERED: NORMAL SALINE INJ/PF 0.9% 10 ML SDV ONE (15:08)
[2020-02-05] MEDS ORDERED: VECURONIUM BROMIDE INJ 10 MG VIAL IV ONE (15:08)
[2020-02-05] MEDS: HYDROMORPHONE HCL INJ/PF 2 MG/ML AMPULE IV PRN ×2 (15:20→19:26)
[2020-02-05] MEDS: ACETAMINOPHEN 325 MG TABLET PO SCH ×3 (15:47→23:11)
[2020-02-05] MEDS: AMLODIPINE BESYLATE 5 MG TABLET PO SCH (15:47)
[2020-02-05] MEDS: OXYCODONE HCL IR 5 MG TABLET PO SCH ×2 (18:24→23:11)
[2020-02-05] MEDS: DIAZEPAM 5 MG TABLET PO PRN (18:24)
[2020-02-05] MEDS: RINGERS SOLUTION,LACTATED 1,000 ML IV PRN (19:00)
[2020-02-05] MEDS: PROMETHAZINE HCL 25 MG TABLET PO PRN (19:59)
[2020-02-05] MEDS: CYCLOBENZAPRINE HCL 10 MG TABLET PO SCH (21:26)
[2020-02-05] MEDS: OXYCODONE HCL IR 5 MG TABLET PO PRN (23:12)
[2020-02-06] MEDS: DIAZEPAM 5 MG TABLET PO PRN ×2 (00:50→10:12)
[2020-02-06] MEDS: RINGERS SOLUTION,LACTATED 1,000 ML IV PRN (00:50)
[2020-02-06] MEDS: HYDROMORPHONE HCL INJ/PF 2 MG/ML AMPULE IV PRN ×2 (02:26→16:55)
[2020-02-06] MEDS: PROMETHAZINE HCL 25 MG TABLET PO PRN ×3 (02:32→14:06)
[2020-02-06] MEDS: OXYCODONE HCL IR 5 MG TABLET PO SCH ×3 (05:11→19:21)
[2020-02-06] MEDS: OXYCODONE HCL IR 5 MG TABLET PO PRN ×2 (05:12→11:06)
[2020-02-06] MEDS: CYCLOBENZAPRINE HCL 10 MG TABLET PO SCH ×3 (05:12→22:04)
[2020-02-06] MEDS: ACETAMINOPHEN 325 MG TABLET PO SCH ×2 (07:51→16:55)
--- NOTE | 2020-02-06 08:38 | PDOC PROGRESS REPORT ---
Subjective Progress Note for:: 02/06/20 Subjective:: Post op day 1 S/P lumbar fusion: Patient reports that he is having severe pain in his back and right hip. He reports that he has not been getting his medications as it was explained to him. Reason For Visit: RECURRING DISC HERNIATION,LUMBAR RADICULOPATHY, Physical Exam Vital Signs: Temp Pulse Resp BP Pulse Ox 98.8 F 118 H 17 166/71 H 100 02/06/20 07:57 02/05/20 23:46 02/05/20 23:46 02/05/20 23:46 02/05/20 23:46 Intake & Output 02/05/20 02/06/20 02/07/20 06:59 06:59 06:59 Intake Total 0 1892 Output Total 1350 Balance 0 542 General appearance: PRESENT: no acute distress, cooperative Eye exam: PRESENT: PERRLA Mouth exam: PRESENT: moist Extremities exam: PRESENT: left BKA Additional comments: Lumbar spine: Dressing was intact but saturated, appropriate post op swelling, tenderness and echymosis is noted. Neurological exam: PRESENT: alert, oriented to person Results Laboratory Results: 01/31/20 10:22 01/31/20 10:22 Impressions: Chest X-Ray 01/31/20 00:00 IMPRESSION: NO ACUTE FINDINGS. Fluoroscopy 02/05/20 00:00 IMPRESSION: IMAGE(S) OBTAINED DURING PROCEDURE. Lumbar Spine X-Ray 02/05/20 00:00 IMPRESSION: IMAGE(S) OBTAINED DURING PROCEDURE. Assessment & Plan - Time Time Spent with patient: 15-24 minutes - Plan Summary Plan Summary: Post-op Day 1 Lumbar fusion: Patient reports that his pain is not controlled this morning and he had a difficult time with PT. Consider D/c Home tomorrow. new dressing applied today
[2020-02-06] MEDS: AMLODIPINE BESYLATE 5 MG TABLET PO SCH (09:04)
[2020-02-06] MEDS: SENNOSIDES/DOCUSATE 8.6-50 MG 1 EACH TABLET PO SCH ×2 (09:04→19:21)
[2020-02-07] MEDS: OXYCODONE HCL IR 5 MG TABLET PO SCH ×5 (00:45→23:12)
[2020-02-07] MEDS: ACETAMINOPHEN 325 MG TABLET PO SCH ×5 (00:46→23:12)
[2020-02-07] MEDS: OXYCODONE HCL IR 5 MG TABLET PO PRN ×3 (00:48→20:06)
[2020-02-07] MEDS: DIAZEPAM 5 MG TABLET PO PRN ×2 (04:34→20:06)
[2020-02-07] MEDS ORDERED: BISACODYL 10 MG SUPP.RECT PR PRN (05:00)
[2020-02-07] MEDS ORDERED: BISACODYL 5 MG TABEC PO PRN (05:00)
[2020-02-07] MEDS: CYCLOBENZAPRINE HCL 10 MG TABLET PO SCH ×3 (06:24→21:17)
[2020-02-07] MEDS: PROMETHAZINE HCL 25 MG TABLET PO PRN (08:05)
[2020-02-07] MEDS: HYDROMORPHONE HCL INJ/PF 2 MG/ML AMPULE IV PRN (09:18)
[2020-02-07] MEDS: AMLODIPINE BESYLATE 5 MG TABLET PO SCH (09:19)
[2020-02-07] MEDS: SENNOSIDES/DOCUSATE 8.6-50 MG 1 EACH TABLET PO SCH ×2 (09:19→17:54)
[2020-02-07] MEDS ORDERED: OXYCODONE HCL SR 10 MG TABLET PO ONE (13:03)
--- NOTE | 2020-02-07 13:10 | PDOC PROGRESS REPORT ---
Subjective Progress Note for:: 02/07/20 Subjective:: Patient lying in bed comfortably. Continues to have significant pain throughout his right hip and back. Has been unable to complete physical therapy secondary to the discomfort. Denies numbness or tingling. Has been able to void. Reason For Visit: RECURRING DISC HERNIATION,LUMBAR RADICULOPATHY, Physical Exam Vital Signs: Temp Pulse Resp BP Pulse Ox 97.5 F 99 17 132/82 H 99 02/07/20 11:48 02/07/20 11:48 02/07/20 11:48 02/07/20 11:48 02/07/20 11:48 Intake & Output 02/06/20 02/07/20 02/08/20 06:59 06:59 06:59 Intake Total 1892 908 Output Total 1350 Balance 542 908 Musculoskeletal exam: PRESENT: other - Dressing intact however shadowing noted. Appropriate swelling and tenderness to palpation. Pain with attempted hip flexion. Intact plantarflexion/dorsiflexion. No sensory deficits. Results Laboratory Results: 01/31/20 10:22 01/31/20 10:22 Impressions: Chest X-Ray 01/31/20 00:00 IMPRESSION: NO ACUTE FINDINGS. Fluoroscopy 02/05/20 00:00 IMPRESSION: IMAGE(S) OBTAINED DURING PROCEDURE. Lumbar Spine X-Ray 02/05/20 00:00 IMPRESSION: IMAGE(S) OBTAINED DURING PROCEDURE. Assessment & Plan - Diagnosis (1) Lumbar spondylosis Is this a current diagnosis for this admission?: Yes Plan: Postop day #2 status post lumbar decompression with fusion. Patient continues to have postoperative pain. Will initiate more longer acting narcotics and attempt to decrease patient's IV usage. I have strongly encourage patient to become more active in physical therapy in order to achieve optimal results and decrease risk of thromboembolic event. At this point patient will continue treatment here. Have also consulted director of social services for possible home health. - Time Time Spent with patient: Less than 15 minutes
[2020-02-08] MEDS: DIAZEPAM 5 MG TABLET PO PRN ×2 (02:23→21:14)
[2020-02-08] MEDS: OXYCODONE HCL IR 5 MG TABLET PO PRN ×4 (02:23→20:31)
[2020-02-08] MEDS: CYCLOBENZAPRINE HCL 10 MG TABLET PO SCH ×3 (05:12→22:28)
[2020-02-08] MEDS: OXYCODONE HCL IR 5 MG TABLET PO SCH ×3 (05:12→18:09)
[2020-02-08] MEDS: ACETAMINOPHEN 325 MG TABLET PO SCH ×2 (08:46→16:05)
[2020-02-08] MEDS: SENNOSIDES/DOCUSATE 8.6-50 MG 1 EACH TABLET PO SCH ×2 (11:06→18:10)
[2020-02-08] MEDS: AMLODIPINE BESYLATE 5 MG TABLET PO SCH (11:07)
[2020-02-08] MEDS ORDERED: PROMETHAZINE HCL 25 MG TABLET PO PRN (14:30)
--- NOTE | 2020-02-08 20:32 | PDOC PROGRESS REPORT ---
Subjective Progress Note for:: 02/08/20 Subjective:: Patient reports that he has pain but it is reasonably controlled he is lying on his side his dressing is intact patient is postop day #3 that is post L4-5 fusion Reason For Visit: Status post L4-5 fusion Physical Exam Vital Signs: Temp Pulse Resp BP Pulse Ox 98.5 F 113 H 18 141/85 H 98 02/08/20 20:07 02/08/20 20:07 02/08/20 20:07 02/08/20 20:07 02/08/20 20:07 Intake & Output 02/07/20 02/08/20 02/09/20 06:59 06:59 06:59 Intake Total 908 1360 236 Balance 908 1360 236 Weight 112.4 kg General appearance: PRESENT: mild distress Exam: Patient's dressing is intact patient's right lower extremity reports that there is no loss of sensation there is no evident weakness 2+ dorsalis pedis pulse no calf tenderness left lower extremity below-knee amputation. Patient reports the back pain is what is giving him the hardest time has been able to ambulate about 20 feet today. Results Laboratory Results: 01/31/20 10:22 01/31/20 10:22 Impressions: Chest X-Ray 01/31/20 00:00 IMPRESSION: NO ACUTE FINDINGS. Fluoroscopy 02/05/20 00:00 IMPRESSION: IMAGE(S) OBTAINED DURING PROCEDURE. Lumbar Spine X-Ray 02/05/20 00:00 IMPRESSION: IMAGE(S) OBTAINED DURING PROCEDURE. Assessment & Plan - Diagnosis (1) Lumbar spondylosis Is this a current diagnosis for this admission?: Yes - Time Critical Time spent with patient: Less than 15 minutes Medications reviewed and adjusted accordingly: Yes Anticipated Discharge Disposition: Home, Self Care - She will continue at home with the current medication plan as it is worked better than anything else and we understand the patient will be weaned off these medications within the first couple weeks Anticipated Discharge Timeframe: within 24 hours - Plan Summary Plan Summary: Plan is for the patient as we have gotten his pain somewhat well controlled we will plan on discharging him tomorrow afternoon. Patient will follow up the following week in the office.
[2020-02-08] MEDS: OXYCODONE HCL SR 10 MG TABLET PO SCH (22:28)
[2020-02-09] MEDS: ACETAMINOPHEN 325 MG TABLET PO SCH ×2 (00:05→09:12)
[2020-02-09] MEDS: OXYCODONE HCL IR 5 MG TABLET PO SCH ×3 (00:05→12:17)
[2020-02-09] MEDS: OXYCODONE HCL IR 5 MG TABLET PO PRN ×2 (02:36→14:14)
[2020-02-09] MEDS: CYCLOBENZAPRINE HCL 10 MG TABLET PO SCH ×2 (05:46→14:14)
[2020-02-09] MEDS: SENNOSIDES/DOCUSATE 8.6-50 MG 1 EACH TABLET PO SCH (09:12)
[2020-02-09] MEDS: OXYCODONE HCL SR 10 MG TABLET PO SCH (09:12)
[2020-02-09] MEDS: AMLODIPINE BESYLATE 5 MG TABLET PO SCH (09:13)
[2020-02-09 11:50] VITALS: BP 143/63
--- NOTE | 2020-02-09 14:41 | PDOC DISCHARGE SUMMARY ---
General - Admit/Disc Date/PCP Admission Date/Primary Care Provider: 02/05/20 05:18 Discharge Date: 02/09/20 - Discharge Diagnosis Final Diagnosis: Status post L4-5 robotically assisted fusion - Assessment Summary: Patient was admitted underwent a 1 level robotically assisted fusion had difficulty with postoperative pain control and difficulty with ambulation because he is a below-knee amputee progressed slowly with physical therapy will to be discharged home today to follow-up in the office this coming week. - Additional Information Resuscitation Status: Full Code Discharge Diet: As Tolerated Discharge Activity: No Lifting/Push/Pulling Referrals: PETER CASTILLO MD [ASSOCIATE] - Prescriptions: Cyclobenzaprine HCl [Flexeril 10 mg Tablet] 10 mg PO TIDP PRN 30 Days #90 PRN Reason: Muscle Spasms Oxycodone HCl [Oxycontin Sr 10 mg Tablet] 20 mg PO Q12 7 Days #14 tab.sr.12h Promethazine HCl [Phenergan 25 mg Tablet] 25 mg PO Q6HP PRN 30 Days #90 tablet PRN Reason: nausea Diazepam [Valium 5 mg Tablet] 5 mg PO Q6HP PRN #20 tablet PRN Reason: Anxiety Home Medications: Oxycodone HCl [Oxy-Ir 5 mg Tablet] 15 mg PO Q4HP PRN 02/05/20 Promethazine HCl [Phenergan 25 mg Tablet] 25 mg PO Q6HP PRN 02/05/20 Acetaminophen [Tylenol 325 mg Tablet] 975 mg PO Q8H tablet 02/09/20 Amlodipine Besylate [Norvasc 5 mg Tablet] 5 mg PO DAILY tablet 02/09/20 Cyclobenzaprine HCl [Flexeril 10 mg Tablet] 10 mg PO Q8 tablet 02/09/20 Cyclobenzaprine HCl [Flexeril 10 mg Tablet] 10 mg PO TIDP PRN 30 Days #90 02/09/20 Diazepam [Valium 5 mg Tablet] 5 mg PO Q6HP PRN #20 tablet 02/09/20 Oxycodone HCl [Oxy-Ir 5 mg Tablet] 10 mg PO Q6HP PRN tablet 02/09/20 Oxycodone HCl [Oxy-Ir 5 mg Tablet] 15 mg PO Q6 tablet 02/09/20 Oxycodone HCl [Oxycontin Sr 10 mg Tablet] 20 mg PO Q12 7 Days #14 tab.sr.12h 02/09/20 Promethazine HCl [Phenergan 25 mg Tablet] 25 mg PO Q6HP PRN 30 Days #90 tablet 02/09/20 Sennosides/Docusate 8.6-50 mg [Senna Plus Tablet] 2 each PO BID tablet 02/09/20 History of Present Illiness History of Present Illness: TARI GALAVIZ is a 44 year old male Physical Exam Vital Signs: Temp Pulse Resp BP Pulse Ox 98.1 F 53 L 20 143/63 H 100 02/09/20 11:50 02/09/20 11:50 02/09/20 11:50 02/09/20 11:50 02/09/20 11:50 Intake & Output 02/08/20 02/09/20 02/10/20 06:59 06:59 06:59 Intake Total 1360 1087 Balance 1360 1087 Weight 112.4 kg 112.4 kg Results Laboratory Results: WBC 6.5 10^3/uL (4.0-10.5) 01/31/20 10:22 RBC 5.12 10^6/uL (4.35-5.55) 01/31/20 10:22 Hgb 14.0 g/dL (13.5-17.0) 01/31/20 10:22 Hct 41.9 % (37.9-51.0) 01/31/20 10:22 MCV 82 fl (80-97) 01/31/20 10:22 MCH 27.3 pg (27.0-33.4) 01/31/20 10:22 MCHC 33.3 g/dL (32.0-36.0) 01/31/20 10:22 RDW 15.9 % (11.5-14.0) H 01/31/20 10:22 Plt Count 270 10^3/uL (150-450) 01/31/20 10:22 Sodium 138.3 mmol/L (137-145) 01/31/20 10:22 Potassium 4.2 mmol/L (3.6-5.0) 01/31/20 10:22 Chloride 103 mmol/L (98-107) 01/31/20 10:22 Carbon Dioxide 24 mmol/L (22-30) 01/31/20 10:22 Anion Gap 11 (5-19) 01/31/20 10:22 BUN 6 mg/dL (7-20) L 01/31/20 10:22 Creatinine 0.98 mg/dL (0.52-1.25) 01/31/20 10:22 Est GFR ( Amer) > 60 (>60) 01/31/20 10:22 Est GFR (MDRD) Non-Af > 60 (>60) 01/31/20 10:22 Glucose 98 mg/dL (75-110) 01/31/20 10:22 Calcium 9.6 mg/dL (8.4-10.2) 01/31/20 10:22 Urine Color YELLOW 01/31/20 10:05 Urine Appearance SLIGHTLY-CLOUDY 01/31/20 10:05 Urine pH 5.0 (5.0-9.0) 01/31/20 10:05 Ur Specific Wanda 1.018 01/31/20 10:05 Urine Protein 30 mg/dL (NEGATIVE) H 01/31/20 10:05 Urine Glucose (UA) NEGATIVE mg/dL (NEGATIVE) 01/31/20 10:05 Urine Ketones NEGATIVE mg/dL (NEGATIVE) 01/31/20 10:05 Urine Blood NEGATIVE (NEGATIVE) 01/31/20 10:05 Urine Nitrite NEGATIVE (NEGATIVE) 01/31/20 10:05 Urine Bilirubin NEGATIVE (NEGATIVE) 01/31/20 10:05 Urine Urobilinogen NEGATIVE mg/dL (<2.0) 01/31/20 10:05 Ur Leukocyte Esterase NEGATIVE (NEGATIVE) 01/31/20 10:05 Urine WBC (Auto) 5 /HPF 01/31/20 10:05 Urine RBC (Auto) 2 /HPF 01/31/20 10:05 U Hyaline Cast (Auto) 5 /LPF 01/31/20 10:05 Squamous Epi Cells Auto <1 /HPF 01/31/20 10:05 Urine Mucus (Auto) MANY /LPF 01/31/20 10:05 Urine Ascorbic Acid NEGATIVE (NEGATIVE) 01/31/20 10:05 Urine Opiates Screen UNCONFIRMED POSITIVE 01/31/20 10:05 Ur Opiates Confirm Negative (Unvluv=[id number]) 01/31/20 11:28 Urine Methadone Screen NEGATIVE 01/31/20 10:05 Ur Barbiturates Screen NEGATIVE 01/31/20 10:05 Ur Phencyclidine Scrn NEGATIVE 01/31/20 10:05 Ur Amphetamines Screen NEGATIVE 01/31/20 10:05 U Benzodiazepines Scrn NEGATIVE 01/31/20 10:05 Urine Cocaine Screen NEGATIVE 01/31/20 10:05 U Marijuana (THC) Screen NEGATIVE 01/31/20 10:05 Serum Alcohol < 10 mg/dL (NONE DETECTED) 01/31/20 10:22 COVID-19 Source See comment 01/31/20 10:10 COVID-19 (CARLIE) Not Detected (Not Detect) 01/31/20 10:10 Blood Type B POSITIVE 02/05/20 05:42 Antibody Screen NEGATIVE 02/05/20 05:42 Impressions: Chest X-Ray 01/31/20 00:00 IMPRESSION: NO ACUTE FINDINGS. Fluoroscopy 02/05/20 00:00 IMPRESSION: IMAGE(S) OBTAINED DURING PROCEDURE. Lumbar Spine X-Ray 02/05/20 00:00
== END 2020-02-09 13:15 | disposition home health service (06) | DRG 455 ==
LOC: INOR 05:18 → 4S 13:59
PROVIDERS: ADMIT Orthopaedic Surgery; ATTEND Orthopaedic Surgery
PROC: 0SG03A0 Fusion of Lumbar Vertebral Joint with Interbody Fusion Device, Anterior Approach, Anterior Column, Percutaneous Approach (ICD-10-PCS; 2020-02-05)
PROC: 0ST20ZZ Resection of Lumbar Vertebral Disc, Open Approach (ICD-10-PCS; 2020-02-05)
PROC: 07DR3ZZ Extraction of Iliac Bone Marrow, Percutaneous Approach (ICD-10-PCS; 2020-02-05)
PROC: 8E0W3CZ Robotic Assisted Procedure of Trunk Region, Percutaneous Approach (ICD-10-PCS; 2020-02-05)
PROC: 0SG0371 Fusion of Lumbar Vertebral Joint with Autologous Tissue Substitute, Posterior Approach, Posterior Column, Percutaneous Approach (ICD-10-PCS; principal; 2020-02-05 07:30)
DX: M43.16 Spondylolisthesis, lumbar region (principal); M54.16 Radiculopathy, lumbar region; M51.36 Other intervertebral disc degeneration, lumbar region; G89.18 Other acute postprocedural pain; F43.10 Post-traumatic stress disorder, unspecified; I10 Essential (primary) hypertension; F41.9 Anxiety disorder, unspecified; E78.5 Hyperlipidemia, unspecified; M54.40 Lumbago with sciatica, unspecified side; Z88.6 Allergy status to analgesic agent; Z88.0 Allergy status to penicillin; Z88.8 Allergy status to other drugs, medicaments and biological substances; Z91.012 Allergy to eggs; Z97.14 Presence of artificial left leg (complete) (partial); Z89.512 Acquired absence of left leg below knee; Z87.442 Personal history of urinary calculi; Z90.49 Acquired absence of other specified parts of digestive tract; Z91.82 Personal history of military deployment; Z79.899 Other long term (current) drug therapy
CPT/HCPCS: 00630; 36415; 71046; 72100; 80048; 80307; 80361; 81001; 85027; 86850; 86900; 86901; 87070; 87635; 93005; 93010; 94799; C1713; C1781; C9290; C9803; J0131; J0330; J1100; J1170; J1644; J2250; J2370; J2405; J2550; J2704; J2710; J2800; J3010; J3490; J7120; Q9966; Q9967

== ENCOUNTER 2020-02-19 15:45 | Emergency (ER) | payer MEDICARE, OTHER ==
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
[2020-02-19 17:00] LABS: ABSOLUTE BASOPHILS # (AUTO) 0.1 10^3/uL (0.0-0.2); ABSOLUTE EOSINOPHILS # (AUTO) 0.3 10^3/uL (0.0-0.6); ABSOLUTE LYMPHOCYTES (AUTO) 2.6 10^3/uL (0.5-4.7); ABSOLUTE MONOCYTES (AUTO) 0.6 10^3/uL (0.1-1.4); ABSOLUTE NEUT (AUTO) 2.7 10^3/uL (1.7-8.2); BASOPHILS % (AUTO) 0.9 % (0-2); EOSINOPHILS % (AUTO) 4.6 % (0-6); HEMATOCRIT 34.9 % (37.9-51.0); HEMOGLOBIN 11.9 g/dL (13.5-17.0); LYMPHOCYTES % (AUTO) 42.6 % (13-45); MEAN CORPUSCULAR VOLUME 82 fl (80-97); MONOCYTES % (AUTO) 9.2 % (3-13); PLATELET COUNT 327 10^3/uL (150-450); RED BLOOD COUNT 4.25 10^6/uL (4.35-5.55); RED CELL DISTRIBUTION WIDTH 14.2 % (11.5-14.0); SEGMENTED NEUTROPHILS % (AUTO) 42.7 % (42-78); TOTAL CELLS COUNTED % (AUTO) 100 %; WHITE BLOOD COUNT 6.2 10^3/uL (4.0-10.5)
[2020-02-19 17:06] LABS: ALBUMIN 4.1 g/dL (3.5-5.0); ALKALINE PHOSPHATASE 167 U/L (38-126); ANION GAP 9 (5-19); ASPARTATE AMINO TRANSFERASE 99 U/L (17-59); BILIRUBIN,DIRECT 0.3 mg/dL (0.0-0.4); BILIRUBIN,TOTAL 0.5 mg/dL (0.2-1.3); BLOOD UREA NITROGEN 6 mg/dL (7-20); CALCIUM 9.5 mg/dL (8.4-10.2); CARBON DIOXIDE 25 mmol/L (22-30); CHLORIDE 104 mmol/L (98-107); GLUCOSE 106 mg/dL (75-110); POTASSIUM 4.5 mmol/L (3.6-5.0); TOTAL PROTEIN 7.3 g/dL (6.3-8.2)
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
[2020-02-19] MEDS ORDERED: HYDROMORPHONE HCL INJ/PF 2 MG/ML AMPULE IV ONE ×2 (18:29→22:30)
[2020-02-19] MEDS ORDERED: METHOCARBAMOL INJ/PF 1000 MG/10 ML SDV IV ONE (18:30)
--- NOTE | 2020-02-19 19:23 | RADIOLOGY REPORT (SQ) ---
EXAM DESCRIPTION: CT LUMBAR SPINE WITHOUT IMAGES COMPLETED DATE/TIME: 02/19/2020 6:56 pm REASON FOR STUDY: L4/5 fusion -1w, pain after fall COMPARISON: None. TECHNIQUE: Axial images acquired through the lumbar spine without intravenous contrast. Images revi ewed with lung, soft tissue and bone windows. Reconstructed coronal and sagittal MPR images reviewed . All images stored on PACS. All CT scanners at this facility use dose modulation, iterative reconstruction, and/or weight based d osing when appropriate to reduce radiation dose to as low as reasonably achievable (ALARA). [facility]: Dose Right [facility]: CareDose [facility]: Dose Right [facility]: Teradose 4D [facility]: [employer] RADIATION DOSE: mGy. LIMITATIONS: None. FINDINGS: SEGMENTATION: Normal. No transitional anatomy. ALIGNMENT: Normal. VERTEBRAL BODIES: No fractures. No dislocation. No acute findings. DISCS: No significant protrusions. Disc implant at L4-5. PEDICLES, TRANSVERSE PROCESSES: No fractures. No dislocation. No acute findings. FACETS, POSTERIOR ELEMENTS: No fractures. No dislocation. Right side laminectomy changes at L4. HARDWARE: Posterior rods from L4-L5 with screws through the pedicles. VISUALIZED RIBS: No fractures. SOFT TISSUES: No significant or acute finding in adjacent soft tissues. OTHER: No other significant finding. IMPRESSION: Surgical changes with no acute findings. TECHNICAL DOCUMENTATION: JOB ID: [id number] Quality ID # [id number]: Final reports with documentation of one or more dose reduction techniques (e.g., Au tomated exposure control, adjustment of the mA and/or kV according to patient size, use of iterative reconstruction technique) 2010 [employer]- All Rights Reserved Reading location - IP/workstation name: [email or web address]
[2020-02-19 20:39] VITALS: BP 152/99
[2020-02-19] MEDS ORDERED: METHOCARBAMOL 1,000 MG in DEXTROSE 5%-WATER 100 ML IV ONE (21:00)
[2020-02-19 21:08] LABS: APPEARANCE,URINE CLEAR; BILIRUBIN,URINE NEGATIVE (NEGATIVE); COLOR,URINE YELLOW; GLUCOSE, URINE NEGATIVE (NEGATIVE); KETONES,URINE NEGATIVE (NEGATIVE); LEUKOCYTE ESTERASE,URINE NEGATIVE (NEGATIVE); NITRITE,URINE NEGATIVE (NEGATIVE); PROTEIN,URINE NEGATIVE (NEGATIVE); URINE SPECIFIC GRAVITY 1.025
[2020-02-19] MEDS ORDERED: HYDROMORPHONE HCL INJ/PF 2 MG/ML AMPULE IM ONE (22:45)
[2020-02-19] MEDS ORDERED: METHOCARBAMOL 500 MG TABLET PO ONE (22:45)
== END 2020-02-19 23:40 | disposition left against medical advice (07) ==
LOC: ER 15:45
DX: M54.9 Dorsalgia, unspecified (principal); M54.5 Low back pain; X58.XXXA Exposure to other specified factors, initial encounter; Z88.0 Allergy status to penicillin; Z88.8 Allergy status to other drugs, medicaments and biological substances; R32 Unspecified urinary incontinence; I10 Essential (primary) hypertension; Z89.512 Acquired absence of left leg below knee
CPT/HCPCS: 99281; 36415; 87086; 85025; 80053; 81001; 72131; A9270; J1170

== ENCOUNTER 2020-03-02 14:12 | Emergency (ER) | payer OTHER, MEDICARE ==
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
--- NOTE | 2020-03-02 17:44 | RADIOLOGY REPORT (SQ) ---
EXAM DESCRIPTION: CT LUMBAR SPINE WITHOUT IMAGES COMPLETED DATE/TIME: 03/02/2020 4:58 pm REASON FOR STUDY: Recent lumbar surgery, fell today COMPARISON: 02/19/2020 TECHNIQUE: Axial images acquired through the lumbar spine without intravenous contrast. Images revi ewed with lung, soft tissue and bone windows. Reconstructed coronal and sagittal MPR images reviewed . All images stored on PACS. All CT scanners at this facility use dose modulation, iterative reconstruction, and/or weight based d osing when appropriate to reduce radiation dose to as low as reasonably achievable (ALARA). [facility]: Dose Right [facility]: CareDose [facility]: Dose Right [facility]: Teradose 4D [facility]: [employer] RADIATION DOSE: mGy. LIMITATIONS: None. FINDINGS: SEGMENTATION: Normal. No transitional anatomy. ALIGNMENT: Normal. VERTEBRAL BODIES: No fractures. No dislocation. No acute findings. DISCS: No significant protrusions. Study limited by lack of intrathecal contrast. PEDICLES, TRANSVERSE PROCESSES: No fractures. No dislocation. No acute findings. FACETS, POSTERIOR ELEMENTS: Laminectomy changes at L4 on the right HARDWARE: Posterior rods at L4-5 with a disc implant. VISUALIZED RIBS: No fractures. SOFT TISSUES: No significant or acute finding in adjacent soft tissues. OTHER: No other significant finding. IMPRESSION: Surgical changes with no acute findings. TECHNICAL DOCUMENTATION: JOB ID: [id number] Quality ID # [id number]: Final reports with documentation of one or more dose reduction techniques (e.g., Au tomated exposure control, adjustment of the mA and/or kV according to patient size, use of iterative reconstruction technique) 2010 [employer]- All Rights Reserved Reading location - IP/workstation name: [email or web address]
[2020-03-02 18:46] VITALS: BP 156/105
[2020-03-02] MEDS ORDERED: HYDROMORPHONE HCL INJ/PF 2 MG/ML AMPULE IM ONE (20:19)
[2020-03-02] MEDS ORDERED: PROMETHAZINE HCL INJ 50 MG/1 ML VIAL IM ONE (20:20)
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
== END 2020-03-02 20:53 | disposition home or self-care (01) ==
LOC: ER 14:12
DX: M54.5 Low back pain (principal); M54.9 Dorsalgia, unspecified; R32 Unspecified urinary incontinence; W19.XXXA Unspecified fall, initial encounter; Z98.890 Other specified postprocedural states; Z79.899 Other long term (current) drug therapy; F17.200 Nicotine dependence, unspecified, uncomplicated; I10 Essential (primary) hypertension
CPT/HCPCS: 99285; 96372; 72131; J1170; J2550

== ENCOUNTER 2020-03-04 06:10 | Emergency (ER) | payer OTHER, MEDICARE ==
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
[2020-03-04] MEDS ORDERED: LORAZEPAM INJ 2 MG/1 ML VIAL IV ONE (10:36)
[2020-03-04 10:56] LABS: APPEARANCE,URINE CLEAR; BILIRUBIN,URINE NEGATIVE (NEGATIVE); COLOR,URINE YELLOW; GLUCOSE, URINE NEGATIVE (NEGATIVE); KETONES,URINE NEGATIVE (NEGATIVE); LEUKOCYTE ESTERASE,URINE TRACE (NEGATIVE); NITRITE,URINE NEGATIVE (NEGATIVE); PROTEIN,URINE NEGATIVE (NEGATIVE); URINE SPECIFIC GRAVITY 1.017; UROBILINOGEN,URINE NEGATIVE mg/dL (<2.0)
[2020-03-04 11:18] LABS: ABSOLUTE BASOPHILS # (AUTO) 0.1 10^3/uL (0.0-0.2); ABSOLUTE EOSINOPHILS # (AUTO) 0.3 10^3/uL (0.0-0.6); ABSOLUTE MONOCYTES (AUTO) 0.5 10^3/uL (0.1-1.4); TOTAL CELLS COUNTED % (AUTO) 100 %
[2020-03-04 11:36] LABS: ABSOLUTE LYMPHOCYTES (AUTO) 2.9 10^3/uL (0.5-4.7); ABSOLUTE NEUT (AUTO) 4.5 10^3/uL (1.7-8.2); ANION GAP 13 (5-19); BASOPHILS % (AUTO) 1.1 % (0-2); BLOOD UREA NITROGEN 12 mg/dL (7-20); CALCIUM 9.8 mg/dL (8.4-10.2); CARBON DIOXIDE 26 mmol/L (22-30); CHLORIDE 98 mmol/L (98-107); GLUCOSE 101 mg/dL (75-110); HEMATOCRIT 37.8 % (37.9-51.0); HEMOGLOBIN 12.4 g/dL (13.5-17.0); LYMPHOCYTES % (AUTO) 34.5 % (13-45); MEAN CORPUSCULAR HGB CONC 32.8 g/dL (32.0-36.0); MEAN CORPUSCULAR VOLUME 82 fl (80-97); MONOCYTES % (AUTO) 6.4 % (3-13); PLATELET COUNT 273 10^3/uL (150-450); POTASSIUM 4.5 mmol/L (3.6-5.0); RED CELL DISTRIBUTION WIDTH 14.7 % (11.5-14.0); WHITE BLOOD COUNT 8.3 10^3/uL (4.0-10.5)
--- NOTE | 2020-03-04 12:22 | RADIOLOGY REPORT (SQ) ---
EXAM DESCRIPTION: MRI LUMBAR SPINE COMBO IMAGES COMPLETED DATE/TIME: 03/04/2020 11:55 am REASON FOR STUDY: 13hw; recent surgery; incontinence COMPARISON: Multiple, most recent 01/02/2020. CT scans 02/19/2020 and 03/02/2020. TECHNIQUE: Sagittal and Axial imaging includes T1, T1 post gadolinium, T2, STIR and gradient echo se quences. Coronal T2/HASTE imaging. CONTRAST TYPE AND DOSE: 20 mL Prohance. RENAL FUNCTION: Not indicated. ACR Type II contrast agent associated with few, if any, unconfounded cases of NSF LIMITATIONS: Motion. Metal artifact. FINDINGS: Interval posterior fusion at L4-5 with unchanged expected postoperative appearance of righ t laminectomy. No residual/recurrent disc herniation. No epidural fluid collection. No nerve root clumping. IMPRESSION: Expected postsurgical changes right laminectomy and fusion at L4- 5. No evidence of pos toperative complication or acute disc herniation. TECHNICAL DOCUMENTATION: JOB ID: [id number] 2010 [employer]- All Rights Reserved Reading location - IP/workstation name: [email or web address]
[2020-03-04] MEDS ORDERED: OXYCODONE-ACETAMINOPHEN 5-325 MG TABLET PO ONE (12:34)
[2020-03-04 12:38] VITALS: BP 156/94
--- OUTSIDE RECORDS SUMMARY | 2020-03-05 18:08 | XMS REPORT ---
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 facet hypertrophy. Mild exacerbation of the intrinsic spinal canal jonathan nosis. Mild right foraminal stenosis. Extraforaminal disc material may contact the recently excluded right nerve root. Mild to moderate left foraminal stenosis. L 4-5: Circumferential disc osteophyte complex with superimposed disc bulge with eccen tric right component. Prior right laminectomy. Degenerative facet hypertrophy and ligamentum flavum thickening, more prominent on theleft, likely relating to prio r partial resection. There is mild effacement of the bilateral lateral recesses, right greater than left and mild exacerbation of intrinsic canal stenosis. Moderate to nolvia re right foraminal stenosis and severe left foraminal stenosis. L5-S1: Small circumferential disc bulge. Mild degenerative facet changes and ligamentum flavu m thickening. Mild exacerbation of the intrinsic canal stenosis and mild to moderate bilateral foraminal stenosis, right greater than left. There is atrophy of the right paraspi nal musculature in the lumbar spine. Visualized intra-abdominal contents are unremarkable. Midline surgical incision along the lower lumbar posterior soft tissues, as expected.Nonobstructing calculus in the right lower pole measu res 0.7 cm. Partially imaged presumed calculus in the left mid pole to lower pole als o noted. Right lower pole hypodense cortical lesion incompletely characterized. IMPRESSI ON: 1. No acute fracture. 2. Stable thoracic spondylosis. 3 . Stable lumbar spondylosis, discogenic disease, and postoperative changes. 4. No nobstructing intrarenal calculi. Final report electronically signed by: Ting Marks Signed by: POLO MARKS DO 12/07/19 0621 cc: POLO MARKS DEREK DO CAT SCAN 2019-12-07 [facility] 06:26:[address] [place] [address] [id number] ------ Patient: TARI GALAVIZ : 1975 Sex: M Address: [address] [place] [address] Phone: [place] [address] Unit #: [id number] REQ SEQ #: [id number] Location: ED Room #: Ordering: BEAN BRYAN DO Diagnosis: FELL YESTERDAY/RECTAL PAIN/SCROTUM PAIN ------ CT thoracic spin e without contrast, CT lumbar spine without contrast TECHNIQUE: CT of the thorac ic and lumbar spine was performed without contrast. Coronal and sagittalreconstr uctions are supplied by the technologist. COMPARISON: MRI thoracic and lum bar spine November 07, 2019. INDICATION: Fall. FINDINGS: There is minimal upper thoracic levocurvature. No significant listhesis. There is no evidence of acut e fracture or subluxation. There is mild multilevel intervertebral disc space narro wing and endplate spur formation throughout. Minimal ventral wedging of the T4-T9 patrick tebral bodies is stable. There are mild degenerative facet change with mild multileve l foraminal stenosis, most prominent at T2-3 and T4-5 on the left and T5-6 on the righ t (mild and moderate to severe, respectively). No high- grade spinal canal stenosis w ithin the thoracic spine. Thoracic paraspinal soft tissues are unremarkable. Vi sualized lungs are clear. There is mild lumbar dextrocurvature. Lumbar spinal al ignment is otherwise maintained. No evidence of acute fracture or subluxation. Wit hin the lumbar spine, there is mild multilevel intervertebral disc space narrowing and endplate spur formation. There is intrinsic canal stenosis relating to aleah enitally short pedicles, stable from prior. Small disc osteophyte complex with sup erimposed bulges at each level are associated with unchanged foraminal and spinal canal stenosis. L1-2: Small circumferential disc osteophyte complex with minimal sup erimposed disc bulge. Mild degenerative facet hypertrophy. No significant spin al canal exacerbation. Mild bilateral foraminal stenosis. L2-3: Small circumfere ntial disc osteophyte complex with superimposed disc bulge. Mild degenerativeface t hypertrophy. Mild exacerbation of the intrinsic canal stenosis. Mild to moderate bilateral foraminal stenosis. L3-4: Circumferential disc osteophyte compl ex with moderate superimposed disc bulge. Mild ligamentum flavum thickening and degenerative facet hypertrophy. Mild exacerbation of the intrinsic spinal canal jonathan nosis. Mild right foraminal stenosis. Extraforaminal disc material may contact the recently excluded right nerve root. Mild to moderate left foraminal stenosis. L 4-5: Circumferential disc osteophyte complex with superimposed disc bulge with eccen tric right component. Prior right laminectomy. Degenerative facet hypertrophy and ligamentum flavum thickening, more prominent on theleft, likely relating to prio r partial resection. There is mild effacement of the bilateral lateral recesses, right greater than left and mild exacerbation of intrinsic canal stenosis. Moderate to nolvia re right foraminal stenosis and severe left foraminal stenosis. L5-S1: Small circumferential disc bulge. Mild degenerative facet changes and ligamentum flavu m thickening. Mild exacerbation of the intrinsic canal stenosis and mild to moderate bilateral foraminal stenosis, right greater than left. There is atrophy of the right paraspi nal musculature in the lumbar spine. Visualized intra-abdominal contents are unremarkable. Midline surgical incision along the lower lumbar posterior soft tissues, as expected.Nonobstructing calculus in the right lower pole measu res 0.7 cm. Partially imaged presumed calculus in the left mid pole to lower pole als o noted. Right lower pole hypodense cortical lesion incompletely characterized. IMPRESSI ON: 1. No acute fracture. 2. Stable thoracic spondylosis. 3 . Stable lumbar spondylosis, discogenic disease, and postoperative changes. 4. No nobstructing intrarenal calculi. Final report electronically signed by: Ting Marks Signed by: POLO MARKS DO 12/07/19 0621 cc: POLO MARKS DO [facility] MAGNETIC 2019-11-07 [facility] 09:09:[address] [place] [address] [id number] ------ Patient: TARI GALAVIZ : 1975 Sex: M Address: [address] [place] [address] Phone: [place] [address] Unit #: [id number] RE SEQ #: [id number] Location: ED Room #: Ordering: BEAN BRYAN DO Diagnosis: LOWER BACK PAIN ------ TECHNIQUE: MRI L UMBAR SPINE WO CONTRAST, MRI THORACIC SPINE WO CONT HISTORY: LOWER BACK PAIN CONTRAST: None COMPARISON: MRI lumbosacral spine 06/07/2019. FINDINGS: MR THORACIC SPINE There is mild degenerative change primarily charac terized by anterior predominant intervertebral disc space loss and spurring. A few minimal superior endplate invaginations are also noted in the lower thoracic spine,a lthough there are no overt compression deformities. Vertebral body height and align ment is otherwise preserved. The visualized bone marrow appears unremarkable. There is no evidence of a significant posterior thoracic disc abnormality, epi dural collection, or canal stenosis. The thoracic spinal cord demonstrates a n ormal caliber and signal intensity. The paraspinal soft tissues are unremarkable . MRI LUMBOSACRAL SPINE Vertebral body height and alignment is pre served. The visualized bone marrow appears unremarkable. There are stable postsurgical changes from right L4-L5 hemilaminectomy. There is a single level of degenerative disc disease at L4-L5 with partial loss of disc signal intensity. Pleas e refer below for description of the associated disc bulge and superimposed dis c extrusion. The conus medullaris and cauda equina nerve roots are intact. The tip of the conus is located at the superior L1 endplate level. The paraspinal s oft tissues are unremarkable. SIGNIFICANT FINDINGS BY LEVEL: T12-L1: No signi ficant posterior disc abnormality, spinal canal stenosis, or neural foraminal stenos is. L1-L2: No significant posterior disc abnormality, spinal canal stenosis, or neural foraminal stenosis. L2-L3: No significant posterior disc abnormality , spinal canal stenosis, or neural foraminal stenosis. L3-L4: No significant post erior disc abnormality, spinal canal stenosis, or neural foraminal stenosis. Mild b ilateral facet arthropathy without significant progression since the prior exam. L4-L5: Prior right hemilaminectomy with partial decompression of the right dorsolater al thecal sac.Unchanged appearance of the residual disc bulge which contains a small central extruded component and a right lateral component of the disc bulge the parti ally effaces the right lateral recess and contacts the descending right L5 nerve r oot (axial T2 series 1201 image 16). The disc bulge also extends along the right inferior neural foraminal recess and contributes to the moderate right neural for aminal stenosis at this level. Moderate bilateral facet arthropathy is also redemonstra caitlyn and unchanged. Facet arthropathy also results in mild left neural foraminal stenosis. L5-S1: Small disc bulge minimally indents the ventral thecal sac witho ut significant canal stenosis. Mild bilateral facet arthropathy without signific ant neural foraminal stenosis. IMPRESSION: 1. Mild degenerative ginger nges in the thoracic spine without evidence of high-grade canal stenosis, manufacturing engineer paint ior disc abnormality, epidural collection, or cord compression. 2. No high-grade c anal stenosis, new posterior disc abnormality, epidural collection, or cauda equina com pression in the lumbosacral spine. 3. Stable right L4-L5 hemilaminectomy with unchanged residual disc bulge which partially effaces the right lateral recess and contacts the descending right L5 nerve root. There is also moderate right n eural foraminal stenosis at this level similar to the prior exam. Final report e lectronically signed by: Selwyn Lazo MD Signed by: SELWYN LAZO MD 11/07/19 0905 cc: BEAN BRYAN BRENDAN P MD [facility] 2019-11-07 [facility] 09:09:[address] [place] [id number] ------ Patient: TARI GALAVIZ : 1975 Sex: M Address: [address] [place] [address] Phone: [place] [address] [facility] #: [id number] Unit #: [id number] [facility] SEQ #: [id number] Location: ED Room #: Ordering: BEAN BRYAN DO Diagnosis: LOWER BACK PAIN ------ TECHNIQUE: MRI L UMBAR SPINE WO CONTRAST, MRI THORACIC SPINE WO CONT HISTORY: LOWER BACK PAIN CONTRAST: None COMPARISON: MRI lumbosacral spine 06/07/2019. FINDINGS: MR THORACIC SPINE There is mild degenerative change primarily charac terized by anterior predominant intervertebral disc space loss and spurring. A few minimal superior endplate invaginations are also noted in the lower thoracic spine,a lthough there are no overt compression deformities. Vertebral body height and align ment is otherwise preserved. The visualized bone marrow appears unremarkable. There is no evidence of a significant posterior thoracic disc abnormality, epi dural collection, or canal stenosis. The thoracic spinal cord demonstrates a n ormal caliber and signal intensity. The paraspinal soft tissues are unremarkable . MRI LUMBOSACRAL SPINE Vertebral body height and alignment is pre served. The visualized bone marrow appears unremarkable. There are stable postsurgical changes from right L4-L5 hemilaminectomy. There is a single level of degenerative disc disease at L4-L5 with partial loss of disc signal intensity. Pleas e refer below for description of the associated disc bulge and superimposed dis c extrusion. The conus medullaris and cauda equina nerve roots are intact. The tip of the conus is located at the superior L1 endplate level. The paraspinal s oft tissues are unremarkable. SIGNIFICANT FINDINGS BY LEVEL: T12-L1: No signi ficant posterior disc abnormality, spinal canal stenosis, or neural foraminal stenos is. L1-L2: No significant posterior disc abnormality, spinal canal stenosis, or neural foraminal stenosis. L2-L3: No significant posterior disc abnormality , spinal canal stenosis, or neural foraminal stenosis. L3-L4: No significant post erior disc abnormality, spinal canal stenosis, or neural foraminal stenosis. Mild b ilateral facet arthropathy without significant progression since the prior exam. L4-L5: Prior right hemilaminectomy with partial decompression of the right dorsolater al thecal sac.Unchanged appearance of the residual disc bulge which contains a small central extruded component and a right lateral component of the disc bulge the parti ally effaces the right lateral recess and contacts the descending right L5 nerve r oot (axial T2 series 1201 image 16). The disc bulge also extends along the right inferior neural foraminal recess and contributes to the moderate right neural for aminal stenosis at this level. Moderate bilateral facet arthropathy is also redemonstra caitlyn and unchanged. Facet arthropathy also results in mild left neural foraminal stenosis. L5-S1: Small disc bulge minimally indents the ventral thecal sac witho ut significant canal stenosis. Mild bilateral facet arthropathy without signific ant neural foraminal stenosis. IMPRESSION: 1. Mild degenerative ginger nges in the thoracic spine without evidence of high-grade canal stenosis, manufacturing engineer paint ior disc abnormality, epidural collection, or cord compression. 2. No high-grade c anal stenosis, new posterior disc abnormality, epidural collection, or cauda equina com pression in the lumbosacral spine. 3. Stable right L4-L5 hemilaminectomy with unchanged residual disc bulge which partially effaces the right lateral recess and contacts the descending right L5 nerve root. There is also moderate right n eural foraminal stenosis at this level similar to the prior exam. Final report e lectronically signed by: Selwyn Lazo MD Signed by: SELWYN LAZO MD 11/07/19904 cc: BEAN BRYAN BRENDAN P MD RADIOLOGY 2019-11-07 [facility] 04:50:[address] [place] [address] [id number] ------ Patient: TARI GALAVIZ : 1975 Sex: M Address: [address] [place] [address] Phone: [place] [address] Unit #: [id number] REQ SEQ #: [id number] Location: ED Room #: Ordering: BEAN BRYAN DO Diagnosis: LOWER BACK PAIN ------ Single view left shoulder INDICATION: Rule out foreign body. TECHNIQUE: Single view of t he shoulder was obtained. COMPARISON: None. FINDINGS: There is mild gl enohumeral and acromioclavicular degeneration. No evidence of acute fracture or disl ocation. No radiopaque foreign body or focal soft tissue swelling. IMPRESSION: No obvious osseous abnormality on this single view. No radiopaque foreign body wit hin the visualized field. Final report electronically signed by: Polo Marks Sig kvng by: POLO MARKS DO 11/07/19 0446 cc: POLO MARKS DEREK DO RADIOLOGY 2019-11-07 [facility] 04:47:[address] [place] [id number] ------ Patient: TARI GALAVIZ : 1975 Sex: M Address: [address] [place] [address] Phone: [place] [address] Unit #: [id number] [facility] SEQ #: [id number] Location: ED Room #: Ordering: BEAN BRYAN DO Diagnosis: LOWER BACK PAIN ------ 3 views left perez d INDICATION: Concern for foreign body TECHNIQUE: Frontal, lateral, and obl ique views of the left hand were obtained. COMPARISON: None. FINDINGS: Ther e is no evidence of acute fracture or dislocation. Joint spaces are well-maintained. No focal so ft tissue swelling or radiopaque foreign body. IMPRESSION: No acute osseous abnormality or evidence of radiopaque foreign body. Final report el ectronically signed by: Polo Marks Signed by: POLO MARKS DO 11/07/19 0443 c c: POLO MARKS DEREK DO RADIOLOGY 2019-11-07 [facility] 04:46:[address] [place] [address] [id number] ------ Patient: TARI GALAVIZ : 1975 Sex: M Address: [address] Phone: [place] [address] Unit #: [id number] [facility] SEQ #: [id number] Location: ED Room #: Ordering: BEAN BRYAN DO Diagnosis: LOWER BACK PAIN ------ SINGLE VIEW CHES T INDICATION:Pain. TECHNIQUE: Single frontal view of the chest was obtained. COM PARISON:None. FINDINGS: Cardiomediastinal silhouette is within normal limits. There is no evidence of focal pulmonary consolidation or pleural effusion. Lungs are under aerated with crowding of the bronchovascular markings and perihilar atelectasis. No pneumothorax. Bony thorax is intact. IMP RESSION: Hypoventilatory changes without other acute cardiopulmonary abnormality. Final repo rt electronically signed by: Polo Marks Signed by: TING MARKS DO 11/07/19 0442 cc: POLO MARKS DEREK DO Blood leukocytes automated count (number/volume) 2019-11-07 04:2 0:00 Test Item Value Reference Range Comments White Blood Count (test code = 6690-2) 9.7 3.6-11.1 Blood erythrocytes automated count (number/volume)2019-11-07 04:20:00 Test Item Value Reference Range Comments Red Blood Count (test code = 789-8) 5.14 4.27-5.49 Blood hemoglobin measurement (mass/volume)2019-11-07 04:20:00 Test Item Value Reference Range Comments Hemoglobin (test code = 718-7) 13.4 12.9-16.1 Automated blood hematocrit (volume fraction)2019-11-07 04:20:00 Test Item Value Reference Range Comments Hematocrit (test code = 4544-3) 41.5 37.7-46.5 Automated erythrocyte mean corpuscular [id number] 04:20:00 Test Item Value Reference Range Comments Mean Corpuscular Volume (test code = 787-2) 80.6 79.3 -94.8 Automated erythrocyte mean corpuscular hemoglobin (mass per erythrocyte) 2019-11-07 04:20:00 Test Item Value Reference Range Comments Mean Corpuscular Hemoglobin (test code = 785-6) 26.0 26.8-33.2 Automated erythrocyte mean corpuscular hemoglobin concentration measurement (mass/volume)2019-11-07 04:20:00 Test Item Value Reference Range Comments Mean Corpuscular Hemoglobin Concent (test code = 32.2 33.5-35.5 786-4) Automated erythrocyte distribution width [id number] 04:20:00 Test Item Value Reference Range Comments Red Cell Distribution Width (test code = 788-0) 15.4 12.0-15.1 Automated blood platelet count (count/volume)2019-11-07 04:20:00 Test Item Value Reference Range Comments Platelet Count (test code = 777-3) 256 165-353 Automated blood platelet mean volume [id number] 04:20:00 Test Item Value Reference Range Comments Mean Platelet Volume (test code = 79537-2) 8.9 7.5-1 0.6 Sodium [Moles/volume] in [id number] 04:20:00 Test Item Value Reference Range Comments Sodium Level (test code = 2947-0) 135 137-144 Potassium [Moles/volume] in Serum or [id number] 04:20:00 Test Item Value Reference Range Comments Potassium Level (test code = 2823-3) 4.0 3.1-5.1 Chloride [id number] 04:20:00 Test Item Value Reference Range Comments Chloride Level (test code = 385448247) 101 101-110 Carbon dioxide [id number] 04:20:00 Test Item Value Reference Range Comments Carbon Dioxide Level (test code = 60401579) 23 22-2 9 Glucose [Moles/volume] in Serum or [id number] 04:20:00 Test Item Value Reference Range Comments Glucose Level (test code = 00783-3) 193 70-105 [id number] 04:20:00 Test Item Value Reference Range Comments Blood Urea Nitrogen (test code = 355042272) 14.0 8.9- 20.6 Creatinine [id number] 04:20:00 Test Item Value Reference Range Comments Creatinine (test code = 320504873) 1.25 0.72-1.25 Estimation of creatinine tyezijwga8498-01-86 04:20:00 Test Item Value Reference Range Comments Estimated Creatinine Clearance 100.15 P T Ht: 182.88cm, PT Wt: Calc (test code = 222600319) 115 .9KG Anion gap [id number] 04:20:00 Test Item Value Reference Range Comments Anion Gap (test code = 48993185) 15 7-16 Twrxnto0359-00-78 04:20:00 Test Item Value Reference Range Comments Calcium Level (test code = 45509187) 9.2 8.4-10.2 Color of Urine by Havw8929-16-58 16:25:00 Test Item Value Reference Range Comments Urine Color (test code = 98122-8) Yellow Urine clarity by refractometry [id number] 16:25:00 Test Item Value Reference Range Comments Urine Appearance (test code = 32386-3) Clear Urine specific gravity measurement by automated test strip (relative density) 2019-09-18 16:25:00 Test Item Value Reference Range Comments Urine Specific [place] (test code = 47500-0) 1.013 1.0 05-1.030 Urine pH measurement by automated test [id number] 16:25:00 Test Item Value Reference Range Comments Urine pH (test code = 91016-4) 6.0 5.0-8.0 Urine leukocyte esterase detection by automated test [id number] 16:25:00 Test Item Value Reference Range Comments Urine Leukocyte Esterase (test code = 65832-0) NEGATIVE N EGATIVE Urine nitrite detection by automated test [id number] 16:25:00 Test Item Value Reference Range Comments Urine Nitrite (test code = 89150-2) NEGATIVE NEGATIVE Urine protein detection by automated test [id number] 16:25:00 Test Item Value Reference Range Comments Urine Protein (test code = 45040-5) NEGATIVE NEGATIVE Urine glucose detection by automated test [id number] 16:25:00 Test Item Value Reference Range Comments Urine Glucose (UA) (test code = 54503-3) NEGATIVE NEGATIV E Urine ketone detection by automated test [id number] 16:25:00 Test Item Value Reference Range Comments Urine Ketones (test code = 80345-8) NEGATIVE NEGATIVE Urine urobilinogen measurement by automated test strip (mass/volume)2019-09-18 16:25:00 Test Item Value Reference Range Comments Urine Urobilinogen (test code = 32984-9) NEGATIVE NEGATIV E Urine bilirubin detection by automated test [id number] 16:25:00 Test Item Value Reference Range Comments Urine Bilirubin (test code = 90443-6) NEGATIVE NEGATIVE Urine erythrocytes detection by automated [id number] 16:25:00 Test Item Value Reference Range Comments Urine Blood (test code = 91845-1) NEGATIVE NEGATIVE Urine ascorbic acid [id number] 16:25:00 Test Item Value Reference Range Comments Urine Ascorbic Acid Level (test code = 1904-2) NEGATIVE [id number] 15:51:[address] [address] Patient: TARI GALAVIZ : 1975 Sex: M Address: [address] [place] [address] [place] [address] Unit #: [id number] RE SEQ #: [id number] Location: ED Room #: Ordering: LESLY BELTRAN DO Diagnosis: R SIDE FLANK PAIN/BLOOD IN URINE US RENAL ULTRASOUNDCOMPLETE Clinical Information: R SIDE FLANK PAIN/BLOOD IN URINEflank, pain, stone disease suspected Comparison: 07/16/2019 CT Renal sonography shows a normal size, contour and echogenicity both kidneys. There are bilateral subcentimeter renal calculi. No mass or hydronephrosis is demonstrated. The right kidney measures 105 x 52 x 57 mm and left kidney measures 100 x 55 x 61 mm. The urinary bladder appears normal. Impression: Bilateral nonobstructive nephrolithiasis. Final report electronically signed by: Katheryn Marinelli MD Signed by: KATHERYN MARINELLI MD 09/18/19 1512 cc: LESLY BELTRAN JOHN [id number] 15:39:[address] [address] Patient: TARI GALAVIZ : 1975 Sex: M Address: [address] [place] [address] [place] [id number] [id number] Unit #: [id number] [facility] SEQ #: [id number] Location: ED Room #: Ordering: LESLY BELTRAN DO Diagnosis: R SIDE FLANK PAIN/BLOOD IN URINE KUB - 1 VIEW ABD Clinical Information: R SIDE FLANK PAIN/BLOOD IN URINE S.br flank pain, stone disease suspected Comparison: CT abdomen pelvis 07/16/2019 A supine KUB study shows nonspecific bowel gas pattern. Bowel gas is generally mildly increased. Bowel gas is seen to the rectum without ev idence for obstruction. Mild amount of stool in the colon. There are bilateralintrarenal calculi. Small calcifications in the pelvis are stable compared to 07/16/2019 CT, consistent with incidental phleboliths. No evidence for organomegaly. Cholecystectomy clips are seen in the right upper quadrant. Unchanged benign soft tissue calcifications right gluteal region. Impression: 1. Mildly prominent bowel gas without evidence for bowel obstruction. 2. Bilateral nephrolithiasis. Finalreport electronically signed by: Sahara Blount DO Signed by: LOTUS BLOUNT DO 09/18/19 8164 cc: BELTRAN,LESLY DO MINE,LOTUS C DOAutomated blood basophil count as percentage of total ssrpsofhou8788-01-11 14:50:00 Test Item Value Reference Range Comments Basophils (%) (Auto) (test code = 706-2) 1.2 0.2-1.2 Blood neutrophils automated count (number/volume)2019-09-18 14:50:00 Test Item Value Reference Range Comments Neutrophils # (Auto) (test code = 751-8) 3.3 1.9-7.2 Automated blood lymphocyte count (number/volume)2019-09-18 14:50:00 Test Item Value Reference Range Comments Lymphocytes # (Auto) (test code = 731-0) 3.3 1.1-2.7 Blood monocytes automated count (number/volume)2019-09-18 14:50:00 Test Item Value Reference Range Comments Monocytes # (Auto) (test code = 742-7) 0.4 0.3-0.8 Automated blood eosinophil ullte9536-36-82 14:50:00 Test Item Value Reference Range Comments Eosinophils # (Auto) (test code = 711-2) 0.3 0.0-0.5 Automated blood basophil count (count/volume)2019-09-18 14:50:00 Test Item Value Reference Range Comments Basophils # (Auto) (test code = 704-7) 0.1 0.0-0.1 Sodium [Moles/volume] in Nvokn8019-74-09 14:50:00 Test Item Value Reference Range Comments Sodium Level (test code = 2947-0) 137 137-144 Potassium [Moles/volume] in Serum or Joscnc5378-93-24 14:50:00 Test Item Value Reference Range Comments Potassium Level (test code = 2823-3) 4.5 3.1-5.1 Chloride kxpef6113-36-59 14:50:00 Test Item Value Reference Range Comments Chloride Level (test code = 667142985) 105 101-110 Carbon dioxide ftcdm9619-39-54 14:50:00 Test Item Value Reference Range Comments Carbon Dioxide Level (test code = 19257210) 24 22-2 9 Glucose [Moles/volume] in Serum or Minyti2523-52-45 14:50:00 Test Item Value Reference Range Comments Glucose Level (test code = 63120-3) 90 70-105 RGS6943-74-20 14:50:00 Test Item Value Reference Range Comments Blood Urea Nitrogen (test code = 958168937) 8.0 8.9- 20.6 Creatinine qrofb6536-62-30 14:50:00 Test Item Value Reference Range Comments Creatinine (test code = 832446153) 1.21 0.72-1.25 Estimation of creatinine stpdjixnw2772-74-46 14:50:00 Test Item Value Reference Range Comments Estimated Creatinine Clearance 102.08 P T Ht: 182.88cm, PT Wt: Calc (test code = 879051327) 112 .8KG Anion gap anbepkkilyi0519-21-49 14:50:00 Test Item Value Reference Range Comments Anion Gap (test code = 88225078) 13 7-16 Fmhmlyy0328-23-24 14:50:00 Test Item Value Reference Range Comments Calcium Level (test code = 69071976) 10.1 8.4-10.2 Total bqtgsneic3097-61-22 14:50:00 Test Item Value Reference Range Comments Total Bilirubin (test code = JEX4225) 0.2 0.1-1.2 Total protein dqjwo6025-45-53 14:50:00 Test Item Value Reference Range Comments Total Protein (test code = 2885-2) 8.4 6.0-8.3 Mecxdpv2071-52-68 14:50:00 Test Item Value Reference Range Comments Albumin (test code = FYS9648) 4.5 3.2-5.2 Plasma globulin measurement (mass/volume)2019-09-18 14:50:00 Test Item Value Reference Range Comments Globulin (test code = 58018-8) 3.9 2.6-4.6 Albumin to globulin wvjlk4546-46-79 14:50:00 Test Item Value Reference Range Comments Albumin/Globulin Ratio (test code = 608356) 1.2 1.1- 2.5 AST (SGOT) ser/cugr8958-37-20 14:50:00 Test Item Value Reference Range Comments Aspartate Amino Transf (AST/SGOT) (test code = 29 5 -34 08104292) Alkaline zrapszzfujm5821-16-38 14:50:00 Test Item Value Reference Range Comments Alkaline Phosphatase (test code = 89100392) 105 40-1 50 ALT (SGPT) ser/lojw9723-61-80 14:50:00 Test Item Value Reference Range Comments Alanine Aminotransferase (ALT/SGPT) (test code = 32 0-55 1742-6) Blood leukocytes automated count (number/volume)2019-09-18 14:50:00 Test Item Value Reference Range Comments White Blood Count (test code = 6690-2) 7.5 3.6-11.1 Blood erythrocytes automated count (number/volume)2019-09-18 14:50:00 Test Item Value Reference Range Comments Red Blood Count (test code = 789-8) 5.15 4.27-5.49 Blood hemoglobin measurement (mass/volume)2019-09-18 14:50:00 Test Item Value Reference Range Comments Hemoglobin (test code = 718-7) 13.7 12.9-16.1 Automated blood hematocrit (volume fraction)2019-09-18 14:50:00 Test Item Value Reference Range Comments Hematocrit (test code = 4544-3) 42.5 37.7-46.5 Automated erythrocyte mean corpuscular yownjh4978-14-57 14:50:00 Test Item Value Reference Range Comments Mean Corpuscular Volume (test code = 787-2) 82.5 79.3 -94.8 Automated erythrocyte mean corpuscular hemoglobin (mass per erythrocyte) 2019-09-18 14:50:00 Test Item Value Reference Range Comments Mean Corpuscular Hemoglobin (test code = 785-6) 26.7 26.8-33.2 Automated erythrocyte mean corpuscular hemoglobin concentration measurement (mass/volume)2019-09-18 14:50:00 Test Item Value Reference Range Comments Mean Corpuscular Hemoglobin Concent (test code = 32.3 33.5-35.5 786-4) Automated erythrocyte distribution width uhefq1424-88-08 14:50:00 Test Item Value Reference Range Comments Red Cell Distribution Width (test code = 788-0) 13.9 12.0-15.1 Automated blood platelet count (count/volume)2019-09-18 14:50:00 Test Item Value Reference Range Comments Platelet Count (test code = 777-3) 256 165-353 Automated blood platelet mean volume eafdfltxtfj6752-54-60 14:50:00 Test Item Value Reference Range Comments Mean Platelet Volume (test code = 96998-5) 8.6 7.5-1 0.6 Automated blood neutrophil count as percentage of total leivavakaf5464-21-52 14:50:00 Test Item Value Reference Range Comments Neutrophils (%) (Auto) (test code = 770-8) 44.4 43.2- 71.5 Automated blood lymphocyte count as percentage of total pewcbxjbxh0913-14-87 14:50:00 Test Item Value Reference Range Comments Lymphocytes (%) (Auto) (test code = 736-9) 44.1 16.8- 43.4 Automated blood monocyte count as percentage of total rgtlnmmnhk1767-72-08 14:50:00 Test Item Value Reference Range Comments Monocytes (%) (Auto) (test code = 5905-5) 5.6 4.6-12 .4 Automated blood eosinophil count as percentage of total iknqeivzbw5226-75-25 14:50:00 Test Item Value Reference Range Comments Eosinophils (%) (Auto) (test code = 713-8) 4.7 0.7-7 .8 CAT VVOI2539-81-08 02:49:[address] [id number] Patient: TARI GALAVIZ : 1975 Sex: M Address: [address] [place] [address] [place] [address] Unit #: [id number] [facility] SEQ #: [id number] Location: ED Room #: Ordering: BRIAN FROST MD Diagnosis: FLANK PAIN/BLOOD IN URINE - Exam: CT scan of the abdomen and pelvis Date of Exam: 07/16/2019 Indications: Flank pain, blood in urine Comparison: None Findings: 5 mm axial images from above the diaphragm through the symphysis pubis were obtained following the administration of 119 cc Optiray 320 IV contrast. Sagittal and coronal reformats were provided. The liver is diffusely low in attenuation consistent with diffuse fatty infiltration. Patient is status post previous cholecystectomy with surgical clips in the gallbladder fossa. The pancreas, spleen, and adrenal glands are unremarkable in appearance. There is a 0.9 x 1.4 cm cyst within the mid right kidney. There are nonobstructing coarse calcifications within the kidneys bilaterally. No hydronephrosis or hydroureter. No abnormally dilated loops of bowel. Patient is status post previous appendectomy. Urinary bladder minimally distended but grossly unremarkable. Nofree air or free fluid within the abdomen or pelvis. Images through the lung bases show no focal infiltrates. There is no pleural or pericardial effusions. Small hiatal hernia. Low-attenuation material within the lower esophagus may represent reflux. Bone windows show no acute or suspicious osseous abnormalities. Focal area of mixed attenuation within the femoral heads bilaterally suspiciousfor avascular necrosis. Impression: 1. Diffuse fatty infiltration of the liver. 2. Previous cholecystectomy. 3. Right renal cyst. 4. Nonobstructing nephrolithiasis. 5. Small hiatal hernia. Low-attenuation material within the lower esophagus may represent reflux. 6. 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 Final report electronically signed by: Alice Zacarias MD Signed by: JERROD ZACARIAS MD 07/16/19 0244 cc: BRIAN FROST MD,JERROD Mejia MDBlood leukocytes automated count (number/volume)2019-07-16 02:15:00 Test Item Value Reference Range Comments White Blood Count (test code = 6690-2) 9.5 3.6-11.1 Blood erythrocytes automated count (number/volume)2019-07-16 02:15:00 Test Item Value Reference Range Comments Red Blood Count (test code = 789-8) 4.95 4.27-5.49 Blood hemoglobin measurement (mass/volume)2019-07-16 02:15:00 Test Item Value Reference Range Comments Hemoglobin (test code = 718-7) 13.8 12.9-16.1 Automated blood hematocrit (volume fraction)2019-07-16 02:15:00 Test Item Value Reference Range Comments Hematocrit (test code = 4544-3) 40.7 37.7-46.5 Automated erythrocyte mean corpuscular bmgdyi5545-42-39 02:15:00 Test Item Value Reference Range Comments Mean Corpuscular Volume (test code = 787-2) 82.2 79.3 -94.8 Automated erythrocyte mean corpuscular hemoglobin (mass per erythrocyte) 2019-07-16 02:15:00 Test Item Value Reference Range Comments Mean Corpuscular Hemoglobin (test code = 785-6) 28.0 26.8-33.2 Automated erythrocyte mean corpuscular hemoglobin concentration measurement (mass/volume)2019-07-16 02:15:00 Test Item Value Reference Range Comments Mean Corpuscular Hemoglobin Concent (test code = 34.0 33.5-35.5 786-4) Automated erythrocyte distribution width hciru5909-43-19 02:15:00 Test Item Value Reference Range Comments Red Cell Distribution Width (test code = 788-0) 15.0 12.0-15.1 Automated blood platelet count (count/volume)2019-07-16 02:15:00 Test Item Value Reference Range Comments Platelet Count (test code = 777-3) 226 165-353 Automated blood platelet mean volume lirudqxuqav8167-51-74 02:15:00 Test Item Value Reference Range Comments Mean Platelet Volume (test code = 23247-9) 8.5 7.5-1 0.6 Automated blood neutrophil count as percentage of total jopdfqpxsp4140-67-30 02:15:00 Test Item Value Reference Range Comments Neutrophils (%) (Auto) (test code = 770-8) 57.4 43.2- 71.5 Automated blood lymphocyte count as percentage of total gtwcvniona8113-11-03 02:15:00 Test Item Value Reference Range Comments Lymphocytes (%) (Auto) (test code = 736-9) 32.3 16.8- 43.4 Automated blood monocyte count as percentage of total ruhikwzckh0822-85-53 02:15:00 Test Item Value Reference Range Comments Monocytes (%) (Auto) (test code = 5905-5) 7.9 4.6-12 .4 Automated blood eosinophil count as percentage of total lipclrpitb1410-12-36 02:15:00 Test Item Value Reference Range Comments Eosinophils (%) (Auto) (test code = 713-8) 1.4 0.7-7 .8 Automated blood basophil count as percentage of total ksmpymrvoy1623-68-06 02:15:00 Test Item Value Reference Range Comments Basophils (%) (Auto) (test code = 706-2) 1.0 0.2-1.2 Blood neutrophils automated count (number/volume)2019-07-16 02:15:00 Test Item Value Reference Range Comments Neutrophils # (Auto) (test code = 751-8) 5.4 1.9-7.2 Automated blood lymphocyte count (number/volume)2019-07-16 02:15:00 Test Item Value Reference Range Comments Lymphocytes # (Auto) (test code = 731-0) 3.1 1.1-2.7 Blood monocytes automated count (number/volume)2019-07-16 02:15:00 Test Item Value Reference Range Comments Monocytes # (Auto) (test code = 742-7) 0.7 0.3-0.8 Automated blood eosinophil vowys7101-38-38 02:15:00 Test Item Value Reference Range Comments Eosinophils # (Auto) (test code = 711-2) 0.1 0.0-0.5 Automated blood basophil count (count/volume)2019-07-16 02:15:00 Test Item Value Reference Range Comments Basophils # (Auto) (test code = 704-7) 0.1 0.0-0.1 Sodium cvlou6727-19-89 02:15:00 Test Item Value Reference Range Comments Sodium Level (test code = 801776080) 139 137-144 Potassium kbcrv6172-87-47 02:15:00 Test Item Value Reference Range Comments Potassium Level (test code = 3.7 3.1-5.1 Sli ght hemolysis present. 925140530) Result may be af fected. Chloride trqum2704-34-44 02:15:00 Test Item Value Reference Range Comments Chloride Level (test code = 108995035) 106 101-110 Carbon dioxide fucet5675-45-27 02:15:00 Test Item Value Reference Range Comments Carbon Dioxide Level (test code = 28519428) 21 22-2 9 Glucose ddnfs5290-31-41 02:15:00 Test Item Value Reference Range Comments Glucose Level (test code = 31028898) 112 70-105 QEM2685-14-70 02:15:00 Test Item Value Reference Range Comments Blood Urea Nitrogen (test code = 315857464) 8.0 8.9- 20.6 Creatinine fwcqn1880-64-15 02:15:00 Test Item Value Reference Range Comments Creatinine (test code = 089827686) 1.21 0.72-1.25 Estimation of creatinine scdmfuxhg3027-48-23 02:15:00 Test Item Value Reference Range Comments Estimated Creatinine Clearance 101.90 P T Ht: 182.88cm, PT Wt: Calc (test code = 509336476) 112 .4KG Anion gap vaatcpfdxal3861-08-73 02:15:00 Test Item Value Reference Range Comments Anion Gap (test code = 95562258) 16 7-16 Pnkzoii9671-52-33 02:15:00 Test Item Value Reference Range Comments Calcium Level (test code = 84819619) 9.6 8.4-10.2 Color of Urine by Gwmf6398-82-23 01:51:00 Test Item Value Reference Range Comments Urine Color (test code = 86608-8) Light Red Urine clarity by refractometry kdmyyyeyf4107-37-55 01:51:00 Test Item Value Reference Range Comments Urine Appearance (test code = 72565-9) Hazy Urine specific gravity measurement by automated test strip (relative density) 2019-07-16 01:51:00 Test Item Value Reference Range Comments Urine Specific [place] (test code = 61380-3) 1.025 1.0 05-1.030 Urine pH measurement by automated test bgnjl8806-86-26 01:51:00 Test Item Value Reference Range Comments Urine pH (test code = 66499-8) 5.0 5.0-8.0 Urine leukocyte esterase detection by automated test qthpq2887-26-76 01:51:00 Test Item Value Reference Range Comments Urine Leukocyte Esterase (test code = 94535-4) NEGATIVE N EGATIVE Urine nitrite detection by automated test bcglm0702-32-27 01:51:00 Test Item Value Reference Range Comments Urine Nitrite (test code = 94116-3) NEGATIVE NEGATIVE Urine protein detection by automated test lsfsr2802-10-33 01:51:00 Test Item Value Reference Range Comments Urine Protein (test code = 36999-5) 1+ NEGATIVE Urine glucose detection by automated test nrfjt4563-88-04 01:51:00 Test Item Value Reference Range Comments Urine Glucose (UA) (test code = 05673-7) NEGATIVE NEGATIV E Urine ketone detection by automated test fefgu7902-86-76 01:51:00 Test Item Value Reference Range Comments Urine Ketones (test code = 21637-4) NEGATIVE NEGATIVE Urine urobilinogen measurement by automated test strip (mass/volume)2019-07-16 01:51:00 Test Item Value Reference Range Comments Urine Urobilinogen (test code = 70282-7) NEGATIVE NEGATIV E Urine bilirubin detection by automated test pimso4811-14-68 01:51:00 Test Item Value Reference Range Comments Urine Bilirubin (test code = 43367-8) NEGATIVE NEGATIVE Urine erythrocytes detection by automated erzxiz5601-03-36 01:51:00 Test Item Value Reference Range Comments Urine Blood (test code = 50827-5) 3+ NEGATIVE Urine ascorbic acid vkterimxj0070-66-25 01:51:00 Test Item Value Reference Range Comments Urine Ascorbic Acid Level (test code = 1904-2) NEGATIVE Urine squamous epithelial cells detection by automated xtbugc7075-91-12 01:51:00 Test Item Value Reference Range Comments Urine Squamous Epithelial Cells (test code = 49123-6) 1-5 0-5 RBC count ur gxwm1639-13-86 01:51:00 Test Item Value Reference Range Comments Urine RBC (test code = 798-9) >20 0-2 Automated leukocytes count in urine sediment (number/area)2019-07-16 01:51:00 Test Item Value Reference Range Comments Urine WBC (test code = 04438-5) 6-10 0-5 Urine bacteria detection by automated ioqnre8434-49-63 01:51:00 Test Item Value Reference Range Comments Urine Bacteria (test code = 08392-0) 1+ <1 Urine mucus detection by automated netssb5959-16-29 01:51:00 Test Item Value Reference Range Comments Urine Mucus (test code = 14528-7) SMALL Urinalysis complete panel - Kjdoq1878-75-04 14:38:40 Test Item Value Reference Range Comments SG Reference Range: 1.020 1.000-1.030 (test code = SG Reference Range: 1.000-1.030) PH Reference Range: 5-9 (test 6 code = PH Reference Range: 5-9) BIBI Reference Range: NEG NEG (test code = BIBI Reference Range: NEG) NIT Reference Range: NEG NEG (test code = NIT Reference Range: NEG) PRO Reference Range: NEG NEG (test code = PRO Reference Range: NEG) GLU Reference Range: NEG NEG (test code = GLU Reference Range: NEG) KET Reference Range: NEG NEG (test code = KET Reference Range: NEG) BLD Reference Range: NEG 250 Ahmet/uL (test code = BLD Reference Range: NEG) RBC Reference Range: No RBCs Microscopic exam of the urine seen (test code = RBC today revealed >3 red blood Reference Range: No RBCs cells per high- powered field seen) WBC Reference Range: No WBCs Mircoscopic exam of the urine seen (test code = WBC today revealed no white blood Reference Range: No WBCs cells seen) Bacteria Reference Range: No No bacteria seen bacteria seen (test code = Bacteria Reference Range: No bacteria seen) Urinalysis complete panel - Kqptv7943-95-62 14:38:40 Test Item Value Reference Range Comments SG Reference Range: 1.020 1.000-1.030 (test code = SG Reference Range: 1.000-1.030) PH Reference Range: 5-9 (test 6 code = PH Reference Range: 5-9) BIBI Reference Range: NEG NEG (test code = BIBI Reference Range: NEG) NIT Reference Range: NEG NEG (test code = NIT Reference Range: NEG) PRO Reference Range: NEG NEG (test code = PRO Reference Range: NEG) GLU Reference Range: NEG NEG (test code = GLU Reference Range: NEG) KET Reference Range: NEG NEG (test code = KET Reference Range: NEG) BLD Reference Range: NEG 250 Ahmet/uL (test code = BLD Reference Range: NEG) RBC Reference Range: No RBCs Microscopic exam of the urine seen (test code = RBC today revealed >3 red blood Reference Range: No RBCs cells per high- powered field seen) WBC Reference Range: No WBCs Mircoscopic exam of the urine seen (test code = WBC today revealed no white blood Reference Range: No WBCs cells seen) Bacteria Reference Range: No No bacteria seen bacteria seen (test code = Bacteria Reference Range: No bacteria seen) Lab - Urine Cyykzz6522-11-95 17:15:00 Test Item Value Reference Range Comments Urine Source (test code = 44314-7) CC Lab - Urine pD8189-66-91 17:15:00 Test Item Value Reference Range Comments Urine pH (test code = 5803-2) 7.0 5.0-8.5 Lab - Urine Izexnafpatgh0718-90-54 17:15:00 Test Item Value Reference Range Comments Urine Urobilinogen (test code = 5818-0) 0.2 MG/DL Lab - Urine Specific Tibjxpo9005-67-25 17:15:00 Test Item Value Reference Range Comments Urine Specific [place] (test code = 5811-5) 1.015 1.00 0-1.030 Lab - Urine Pkudfrl5751-48-91 17:15:00 Test Item Value Reference Range Comments Urine Protein (test code = 99151-9) NEG MG/DL Lab - Urine Fjmswfl8398-00-13 17:15:00 Test Item Value Reference Range Comments Urine Nitrite (test code = 5802-4) NEG Lab - Urine Leukocyte Zezxderj5019-37-56 17:15:00 Test Item Value Reference Range Comments Urine Leukocyte Esterase (test code = 54800-0) NEG Lab - Urine Ketones (Stick)2017-01-05 17:15:00 Test Item Value Reference Range Comments Urine Ketones (Stick) (test code = 2514-8) NEG Lab - Urine Glucose (Stick)2017-01-05 17:15:00 Test Item Value Reference Range Comments Urine Glucose (Stick) (test code = 45011-3) NEG MG/DL Lab - Urine Hnpov1963-61-72 17:15:00 Test Item Value Reference Range Comments Urine Color (test code = 5778-6) LT. YELLOW Lab - Urine Pkapwlo7400-56-65 17:15:00 Test Item Value Reference Range Comments Urine Clarity (test code = 94670-8) CLEAR Lab - Urine Xdspf6746-83-61 17:15:00 Test Item Value Reference Range Comments Urine Blood (test code = 66542-9) NEG Lab - Urine Gyubsfnom8206-32-13 17:15:00 Test Item Value Reference Range Comments Urine Bilirubin (test code = 5770-3) NEG Lab - Total Mboicsz5731-04-70 15:30:00 Test Item Value Reference Range Comments Total Protein (test code = 2885-2) 7.8 GM/DL 6.6-7.7 Lab - Total Zbnnbqzjs3113-44-16 15:30:00 Test Item Value Reference Range Comments Total Bilirubin (test code = 1975-2) 0.3 MG/DL 0.0-1.2 Lab - Sodium Qyumw3952-91-19 15:30:00 Test Item Value Reference Range Comments Sodium Level (test code = 2951-2) 136 MEQ/L 136-142 Lab - Potassium Bgtms5927-35-06 15:30:00 Test Item Value Reference Range Comments Potassium Level (test code = 2823-3) 4.4 MEQ/L 3.5-4.7 Lab - Igqtaa6479-22-54 15:30:00 Test Item Value Reference Range Comments Lipase (test code = 3040-3) 11 IU/L 5-32 Lab - Glucose Ouazh0733-40-53 15:30:00 Test Item Value Reference Range Comments Glucose Level (test code = 2345-7) 93 MG/DL 80-100 Lab - Estimat Glomerular Filtration Fdtq4022-00-30 15:30:00 Test Item Value Reference Range Comments Estimat Glomerular 117.8 ML/MIN 97-137 KIDNEY DISEAS E OUTCOMES Filtration Rate (test code = [place] INITIATIVE (NKF 12783-8) K/DOQI) CHRONIC KIDNEY DISEASE STAGE 1. Lab - Direct Bixovxolb7632-93-54 15:30:00 Test Item Value Reference Range Comments Direct Bilirubin (test code = 1968-7) < 0.1 MG/DL 0.0-0.3 Lab - Aphbmhlajr6393-59-80 15:30:00 Test Item Value Reference Range Comments Creatinine (test code = 0.87 MG/DL 0.60-1.30 CREATINI NE RESULTS ARE 2160-0) STANDARDIZED AND TRACEABLE TO THE IDMS METHOD RECOMMENDED BY NKDEP. Lab - Chloride Yhqoa7891-93-36 15:30:00 Test Item Value Reference Range Comments Chloride Level (test code = 2075-0) 103 MEQ/L 103-110 Lab - Carbon Dioxide Sbolj7100-87-82 15:30:00 Test Item Value Reference Range Comments Carbon Dioxide Level (test code = Carbon Dioxide 24 MEQ/L 23-30 Level) Lab - Calcium Qpmwj9500-59-22 15:30:00 Test Item Value Reference Range Comments Calcium Level (test code = 36732-5) 10.1 MG/DL 8.7-9.9 Lab - Blood Urea Tgoscapz4310-50-94 15:30:00 Test Item Value Reference Range Comments Blood Urea Nitrogen (test code = 22004-0) 15 mg/dl 6-20 Lab - Aspartate Amino Transf (AST/SGOT)2017-01-05 15:30:00 Test Item Value Reference Range Comments Aspartate Amino Transf (AST/SGOT) (test code = 32 IU/L 1 5-39 1920-8) Lab - Anion Aeh3761-99-39 15:30:00 Test Item Value Reference Range Comments Anion Gap (test code = 63297-7) 9 MEQ/L 3-11 Lab - Alkaline Xumzwdgakhe4230-21-98 15:30:00 Test Item Value Reference Range Comments Alkaline Phosphatase (test code = 1783-0) 100 IU/L 40-99 Lab - Grzqegl0708-76-31 15:30:00 Test Item Value Reference Range Comments Albumin (test code = 1751-7) 4.3 GM/DL 3.4-4.2 Lab - Alanine Aminotransferase (ALT/SGPT)2017-01-05 15:30:00 Test Item Value Reference Range Comments Alanine Aminotransferase (ALT/SGPT) (test code = 38 IU/L 5-45 1742-6) Lab - Lactic Acid Czyxf0369-12-63 15:30:00 Test Item Value Reference Range Comments Lactic Acid Level (test code = Lactic Acid Level) 1.4 MMOL/L 0.5-1.6 Lab - Segmented Kzfeywqwfcb9233-79-10 15:30:00 Test Item Value Reference Range Comments Segmented Neutrophils (test code = 46581-2) 80.9 % 41.8 -71.3 Lab - Red Cell Distribution Jlgtl1528-45-81 15:30:00 Test Item Value Reference Range Comments Red Cell Distribution Width (test code = 97240-5) 15.7 % 12.9-15.4 Lab - Red Blood Crnho3209-09-17 15:30:00 Test Item Value Reference Range Comments Red Blood Count (test code = 789-8) 5.01 MILLION 4.31-5.88 Lab - Platelet Zboyl6243-36-64 15:30:00 Test Item Value Reference Range Comments Platelet Count (test code = 777-3) 209 THOUSAND 150-350 Lab - Nucleated Red Blood Cells/100 BKT1304-08-67 15:30:00 Test Item Value Reference Range Comments Nucleated Red Blood Cells/100 WBC (test code = 0.1 0 .0-0.8 63629-6) Lab - Monocytes %2017-01-05 15:30:00 Test Item Value Reference Range Comments Monocytes % (test code = 5905-5) 7.2 % 2.0-11.0 Lab - Mean Platelet Clukwn5931-27-07 15:30:00 Test Item Value Reference Range Comments Mean Platelet Volume (test code = 30787-2) 8.9 fL 6.7-1 0.5 Lab - Mean Corpuscular Twwyal7365-57-84 15:30:00 Test Item Value Reference Range Comments Mean Corpuscular Volume (test code = 787-2) 75.9 fL 81-1 00 Lab - Mean Corpuscular Hemoglobin Topwmvo3970-08-49 15:30:00 Test Item Value Reference Range Comments Mean Corpuscular Hemoglobin Concent (test code = 32.7 g/dL 31.5-35.0 786-4) Lab - Mean Corpuscular Bmbclpudmo4933-22-46 15:30:00 Test Item Value Reference Range Comments Mean Corpuscular Hemoglobin (test code = 58633-4) 24.8 pg 26.1-34.5 Lab - Lymphocytes %2017-01-05 15:30:00 Test Item Value Reference Range Comments Lymphocytes % (test code = 736-9) 11.4 % 13.8-48.7 Lab - Wxwqopscnc7342-21-35 15:30:00 Test Item Value Reference Range Comments Hemoglobin (test code = 718-7) 12.4 GRAMS 13.2-17.7 Lab - Clrrbwmvab7053-05-10 15:30:00 Test Item Value Reference Range Comments Hematocrit (test code = 4544-3) 38.0 % 40.3-53.1 Lab - Eosinophils %2017-01-05 15:30:00 Test Item Value Reference Range Comments Eosinophils % (test code = 713-8) 0.3 % 0.4-7.5 Lab - Corrected White Blood [id number] 15:30:00 Test Item Value Reference Range Comments Corrected White Blood Count (test code = 10.6 THOUSAND 4.5-12. 0 59683-9) Lab - Basophils %2017-01-05 15:30:00 Test Item Value Reference Range Comments Basophils % (test code = 706-2) 0.2 % 0.2-1.7 Lab - Absolute Neutrophils (auto)2017-01-05 15:30:00 Test Item Value Reference Range Comments Absolute Neutrophils (auto) (test code = 751-8) 8.6 THOUSAND 1.4-6.5 Assessments Condition Name Status Diagnosis Date Treating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
== END 2020-03-04 12:50 | disposition home or self-care (01) ==
LOC: ER 06:10
DX: M54.41 Lumbago with sciatica, right side (principal); R32 Unspecified urinary incontinence; I10 Essential (primary) hypertension; Z98.1 Arthrodesis status; Z89.612 Acquired absence of left leg above knee; Z88.0 Allergy status to penicillin; Z88.8 Allergy status to other drugs, medicaments and biological substances; Z88.6 Allergy status to analgesic agent; Z88.5 Allergy status to narcotic agent
CPT/HCPCS: 99285; 96374; 36415; 85025; 80048; 81001; 72158; A9576; J2060

== ENCOUNTER 2020-03-17 07:05 | Emergency (ER) | payer OTHER, MEDICARE ==
[2020-03-17] MEDS ORDERED: HYDROMORPHONE HCL INJ/PF 2 MG/ML AMPULE IV ONE ×3 (08:22→11:50)
[2020-03-17 08:57] LABS: ABSOLUTE EOSINOPHILS # (AUTO) 0.4 10^3/uL (0.0-0.6); ABSOLUTE LYMPHOCYTES (AUTO) 2.4 10^3/uL (0.5-4.7); ABSOLUTE MONOCYTES (AUTO) 0.5 10^3/uL (0.1-1.4); ABSOLUTE NEUT (AUTO) 2.2 10^3/uL (1.7-8.2); BASOPHILS % (AUTO) 0.5 % (0-2); EOSINOPHILS % (AUTO) 7.9 % (0-6); HEMATOCRIT 39.3 % (37.9-51.0); HEMOGLOBIN 13.1 g/dL (13.5-17.0); LYMPHOCYTES % (AUTO) 43.5 % (13-45); MEAN CORPUSCULAR HEMOGLOBIN 27.1 pg (27.0-33.4); MEAN CORPUSCULAR HGB CONC 33.3 g/dL (32.0-36.0); MEAN CORPUSCULAR VOLUME 81 fl (80-97); MONOCYTES % (AUTO) 8.8 % (3-13); PLATELET COUNT 211 10^3/uL (150-450); RED BLOOD COUNT 4.82 10^6/uL (4.35-5.55); RED CELL DISTRIBUTION WIDTH 13.9 % (11.5-14.0); SEGMENTED NEUTROPHILS % (AUTO) 39.3 % (42-78); TOTAL CELLS COUNTED % (AUTO) 100 %; WHITE BLOOD COUNT 5.6 10^3/uL (4.0-10.5)
[2020-03-17 09:22] LABS: ALBUMIN 4.6 g/dL (3.5-5.0); ALKALINE PHOSPHATASE 122 U/L (38-126); ANION GAP 12 (5-19); ASPARTATE AMINO TRANSFERASE 31 U/L (17-59); BILIRUBIN,DIRECT 0.1 mg/dL (0.0-0.4); BILIRUBIN,TOTAL 0.2 mg/dL (0.2-1.3); BLOOD UREA NITROGEN 7 mg/dL (7-20); CALCIUM 9.5 mg/dL (8.4-10.2); CARBON DIOXIDE 24 mmol/L (22-30); CHLORIDE 102 mmol/L (98-107); GLUCOSE 89 mg/dL (75-110); TOTAL PROTEIN 8.1 g/dL (6.3-8.2)
[2020-03-17] MEDS ORDERED: ONDANSETRON HCL INJ/PF 4 MG/2 ML SDV IV ONE (09:30)
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
--- NOTE | 2020-03-17 10:48 | RADIOLOGY REPORT (SQ) ---
EXAM DESCRIPTION: MRI LUMBAR SPINE COMBO IMAGES COMPLETED DATE/TIME: 03/17/2020 10:25 am REASON FOR STUDY: incontinence COMPARISON: Multiple, most recent 03/04/2020. CTs 03/02/2020 and 02/19/2020. TECHNIQUE: Sagittal and Axial imaging includes T1, T1 post gadolinium, T2, STIR and gradient echo se quences. Coronal T2/HASTE imaging. CONTRAST TYPE AND DOSE: 15 mL Prohance. RENAL FUNCTION: Not indicated. ACR Type II contrast agent associated with few, if any, unconfounded cases of NSF LIMITATIONS: Metal artifact. FINDINGS: No change from previous. Right laminectomy and posterior fusion L4-5. No evidence of epi dural fluid collection. No evidence of residual/recurrent disc herniation. No nerve root clumping. IMPRESSION: Expected postsurgical changes. No evidence of postoperative complication or acute disc herniation. TECHNICAL DOCUMENTATION: JOB ID: [id number] 2010 [employer]- All Rights Reserved Reading location - IP/workstation name: [email or web address]
[2020-03-17 12:17] VITALS: BP 176/94
--- NOTE | 2020-03-17 12:24 | RADIOLOGY REPORT (SQ) ---
EXAM DESCRIPTION: VENOUS UNILATERAL LOWER IMAGES COMPLETED DATE/TIME: 03/17/2020 12:04 pm REASON FOR STUDY: right leg swelling COMPARISON: None. TECHNIQUE: Dynamic and static grey scale and color images acquired of the right leg venous system. S elected spectral images acquired with additional compression and augmentation maneuvers. The contrala teral common femoral vein and saphenofemoral junction were also imaged. Images stored on PACS. LIMITATIONS: None. FINDINGS: COMMON FEMORAL: Normal phasicity, compression and augmentation. No visualized echogenic ma terial on grey scale. No defects on color images. FEMORAL: Normal compression and augmentation. No visualized echogenic material on grey scale. No defe cts on color images. POPLITEAL: Normal compression, augmentation. No visualized echogenic material on grey scale. No defec ts on color images. CALF VESSELS: Normal compression, augmentation. No visualized echogenic material on grey scale. No de fects on color images. GSV and SSV: Normal compression, augmentation. No visualized echogenic material on grey scale. No def ects on color images. ANY DEEP VENOUS INSUFFICIENCY: Not evaluated. ANY EVIDENCE OF POPLITEAL CYST: No. OTHER: No other significant finding. CONTRALATERAL COMMON FEMORAL VEIN AND SAPHENOFEMORAL JUNCTION: Normal phasicity, compression and augmentation. No visualized echogenic material on grey scale. No de fects on color images. IMPRESSION: NO EVIDENCE DVT OR SVT IN THE RIGHT LEG. TECHNICAL DOCUMENTATION: JOB ID: [id number] [employer]- All Rights Reserved Reading location - IP/workstation name: [email or web address]
== END 2020-03-17 12:15 | disposition home or self-care (01) ==
LOC: ER 07:05
DX: M54.41 Lumbago with sciatica, right side (principal); M54.16 Radiculopathy, lumbar region; I10 Essential (primary) hypertension; Z88.0 Allergy status to penicillin
CPT/HCPCS: 96376; 99285; 96374; 96375; 36415; 85025; 80053; 93971; 72158; A9576; J1170; J2405

== ENCOUNTER 2020-04-12 03:29 | Emergency (ER) | payer OTHER, MEDICARE ==
[2020-04-12] MEDS ORDERED: DEXAMETHASONE SOD PHOS INJ 10 MG/1 ML VIAL IM ONE (07:32)
[2020-04-12] MEDS ORDERED: HYDROMORPHONE HCL INJ/PF 2 MG/ML AMPULE IM ONE (07:33)
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
--- NOTE | 2020-04-12 08:18 | RADIOLOGY REPORT (SQ) ---
EXAM DESCRIPTION: CT LUMBAR SPINE WITHOUT IMAGES COMPLETED DATE/TIME: 04/12/2020 7:50 am REASON FOR STUDY: trauma COMPARISON: None. TECHNIQUE: Axial images acquired through the lumbar spine without intravenous contrast. Images revi ewed with lung, soft tissue and bone windows. Reconstructed coronal and sagittal MPR images reviewed . All images stored on PACS. All CT scanners at this facility use dose modulation, iterative reconstruction, and/or weight based d osing when appropriate to reduce radiation dose to as low as reasonably achievable (ALARA). [facility]: Dose Right [facility]: CareDose [facility]: Dose Right [facility]: Teradose 4D [facility]: Smart bookletmobile RADIATION DOSE: CT Rad equipment meets quality standard of care and radiation dose reduction techniq ues were employed. CTDIvol: 24.7 mGy. DLP: 875 mGy-cm. mGy. LIMITATIONS: None. FINDINGS: SEGMENTATION: Normal. No transitional anatomy. ALIGNMENT: Normal. VERTEBRAL BODIES: No fractures. No dislocation. No acute findings. DISCS: Stable surgical changes at L4-L5 with right laminectomy, disc spacer, and posterior hardware. No significant protrusions. Study limited by lack of intrathecal contrast. PEDICLES, TRANSVERSE PROCESSES: No fractures. No dislocation. No acute findings. FACETS, POSTERIOR ELEMENTS: No fractures. No dislocation. Right laminectomy at L4-L5. HARDWARE: Stable hardware at L4-L5. VISUALIZED RIBS: No fractures. SOFT TISSUES: No significant or acute finding in adjacent soft tissues. OTHER: No other significant finding. IMPRESSION: STABLE SURGICAL CHANGES AND HARDWARE AT L4-L5. NO ACUTE FINDINGS. TECHNICAL DOCUMENTATION: JOB ID: [id number] Quality ID # [id number]: Final reports with documentation of one or more dose reduction techniques (e.g., Au tomated exposure control, adjustment of the mA and/or kV according to patient size, use of iterative reconstruction technique) 2010 [employer]- All Rights Reserved Reading location - IP/workstation name: [email or web address]
[2020-04-12] MEDS ORDERED: PROMETHAZINE HCL INJ 25 MG/1 ML VIAL IM ONE (08:25)
[2020-04-12 09:14] VITALS: BP 171/110
== END 2020-04-12 09:22 | disposition home or self-care (01) ==
LOC: ER 03:29
DX: M54.40 Lumbago with sciatica, unspecified side (principal); G89.29 Other chronic pain; M54.9 Dorsalgia, unspecified; W01.0XXA Fall on same level from slipping, tripping and stumbling without subsequent striking against object, initial encounter; I10 Essential (primary) hypertension; Z91.81 History of falling; Z88.0 Allergy status to penicillin; Z98.1 Arthrodesis status; Z87.442 Personal history of urinary calculi
CPT/HCPCS: 99285; 96372; 72131; J1170; J2550; J1100

== ENCOUNTER 2020-05-01 08:29 | Emergency (ER) | payer OTHER, MEDICARE ==
[2020-05-01 08:44] VITALS: BP 178/115
--- NOTE | 2020-05-01 09:08 | RADIOLOGY REPORT (SQ) ---
EXAM DESCRIPTION: KNEE RIGHT 2 VIEWS IMAGES COMPLETED DATE/TIME: 05/01/2020 9:00 am REASON FOR STUDY: fall COMPARISON: 07/15/2015 NUMBER OF VIEWS: Two views. TECHNIQUE: AP and lateral radiographic images acquired of the right knee. LIMITATIONS: None. FINDINGS: MINERALIZATION: Normal. BONES: No acute fracture or dislocation. No worrisome bone lesions. Mild Tricompartment osteophytos is. Mild symmetric joint space loss. Superior and inferior patellar enthesophytes. JOINT: No effusion. SOFT TISSUES: No soft tissue swelling. No radio-opaque foreign body. OTHER: No other significant finding. IMPRESSION: No evidence of acute bony abnormality. Mild tricompartment osteoarthritis. TECHNICAL DOCUMENTATION: JOB ID: [id number] 2010 [employer]- All Rights Reserved Reading location - IP/workstation name: [email or web address]
[2020-05-01] MEDS ORDERED: DEXAMETHASONE SOD PHOS INJ 10 MG/1 ML VIAL IM ONE (10:38)
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
== END 2020-05-01 12:34 | disposition home or self-care (01) ==
LOC: ER 08:29
DX: S83.91XA Sprain of unspecified site of right knee, initial encounter (principal); W01.190A Fall on same level from slipping, tripping and stumbling with subsequent striking against furniture, initial encounter; Y93.89 Activity, other specified; M17.11 Unilateral primary osteoarthritis, right knee; I10 Essential (primary) hypertension; M25.559 Pain in unspecified hip; Z88.0 Allergy status to penicillin; Z88.8 Allergy status to other drugs, medicaments and biological substances; Z88.6 Allergy status to analgesic agent; Z88.5 Allergy status to narcotic agent; Z89.512 Acquired absence of left leg below knee
CPT/HCPCS: 99284; 96372; 73560; J1100

== ENCOUNTER 2020-05-05 03:01 | Emergency (ER) | payer OTHER, MEDICARE ==
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
[2020-05-05] MEDS: HYDROMORPHONE HCL INJ/PF 2 MG/ML AMPULE IV PRN ×3 (06:06→08:44)
[2020-05-05 07:03] LABS: ABSOLUTE BASOPHILS # (AUTO) 0.1 10^3/uL (0.0-0.2); ABSOLUTE EOSINOPHILS # (AUTO) 0.2 10^3/uL (0.0-0.6); ABSOLUTE LYMPHOCYTES (AUTO) 3.8 10^3/uL (0.5-4.7); ABSOLUTE MONOCYTES (AUTO) 0.5 10^3/uL (0.1-1.4); ABSOLUTE NEUT (AUTO) 3.2 10^3/uL (1.7-8.2); BASOPHILS % (AUTO) 0.8 % (0-2); EOSINOPHILS % (AUTO) 3.2 % (0-6); HEMATOCRIT 41.3 % (37.9-51.0); HEMOGLOBIN 13.8 g/dL (13.5-17.0); LYMPHOCYTES % (AUTO) 48.9 % (13-45); MEAN CORPUSCULAR HEMOGLOBIN 26.1 pg (27.0-33.4); MEAN CORPUSCULAR HGB CONC 33.4 g/dL (32.0-36.0); MEAN CORPUSCULAR VOLUME 78 fl (80-97); PLATELET COUNT 228 10^3/uL (150-450); RED BLOOD COUNT 5.27 10^6/uL (4.35-5.55); RED CELL DISTRIBUTION WIDTH 14.7 % (11.5-14.0); SEGMENTED NEUTROPHILS % (AUTO) 41.1 % (42-78); TOTAL CELLS COUNTED % (AUTO) 100 %; WHITE BLOOD COUNT 7.7 10^3/uL (4.0-10.5)
[2020-05-05 07:32] LABS: ALBUMIN 4.1 g/dL (3.5-5.0); ALKALINE PHOSPHATASE 134 U/L (38-126); ANION GAP 6 (5-19); ASPARTATE AMINO TRANSFERASE 44 U/L (17-59); BILIRUBIN,DIRECT 0.2 mg/dL (0.0-0.4); BILIRUBIN,TOTAL 0.3 mg/dL (0.2-1.3); BLOOD UREA NITROGEN 10 mg/dL (7-20); CALCIUM 9.1 mg/dL (8.4-10.2); CARBON DIOXIDE 27 mmol/L (22-30); CHLORIDE 103 mmol/L (98-107); GLUCOSE 102 mg/dL (75-110); POTASSIUM 4.1 mmol/L (3.6-5.0); TOTAL PROTEIN 7.5 g/dL (6.3-8.2)
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
--- NOTE | 2020-05-05 08:59 | RADIOLOGY REPORT (SQ) ---
EXAM DESCRIPTION: MRI LUMBAR SPINE WITHOUT IMAGES COMPLETED DATE/TIME: 05/05/2020 8:34 am REASON FOR STUDY: spinal fusion mid/low severe pain urine incont COMPARISON: MRI lumbar spine dated 04/06/2019, 12/05/2019, 01/02/2020, 03/04/2020, and 03/17/2020 TECHNIQUE: Sagittal and Axial imaging includes T1, T2, STIR and gradient echo sequences. Coronal T2/ HASTE imaging. LIMITATIONS: None. FINDINGS: VISUALIZED UPPER ABDOMEN: Limited evaluation. No acute or suspicious findings suggested. SEGMENTATION: No transitional anatomy. The lowest well-developed disc space is labeled L5-S1. ALIGNMENT: Anatomic. VERTEBRAE: Intact. BONE MARROW: Normal. No marrow replacement or reactive changes. DISC SIGNAL: Normal. No significant abnormal signal or loss of height. POSTERIOR ELEMENTS: Status post posterior intrapedicular screw in paraspinous juni fusion of the L4/ 5 level. No evidence of hardware complication. L4 right laminectomy. The remaining posterior eleme nts are unremarkable. HARDWARE: As above. CORD AND CONUS: Normal in size and signal intensity. Conus at the appropriate level. SOFT TISSUES: No aortic aneurysm seen. No bulky retroperitoneal adenopathy or mass. No paraspinal mas s or fluid. L1-L2: No significant spinal stenosis or exit foraminal stenosis. L2-L3: No significant spinal stenosis or exit foraminal stenosis. L3-L4: No significant spinal stenosis or exit foraminal stenosis. L4-L5: Posterior fusion. No abnormal fluid collection. No evidence of hardware complication. Mild right neural foraminal narrowing. The central canal and left neural foramen remain widely patent. L5-S1: No significant spinal stenosis or exit foraminal stenosis. LOWER THORACIC: Incompletely imaged. No stenosis seen. SACRUM: Visualized upper sacrum intact. OTHER: No other significant findings. IMPRESSION: Stable MR appearance of the lumbar spine status post L4/5 posterior fusion and right L4 laminectomy. No evidence of hardware/postsurgical complication. No high-grade neural impingement. TECHNICAL DOCUMENTATION: JOB ID: [id number] [employer]- All Rights Reserved Reading location - IP/workstation name: [email or web address]
--- NOTE | 2020-05-05 09:12 | RADIOLOGY REPORT (SQ) ---
EXAM DESCRIPTION: MRI THORACIC SPINE WITHOUT IMAGES COMPLETED DATE/TIME: 05/05/2020 8:34 am REASON FOR STUDY: spinal fusion mid/low severe pain urine incont COMPARISON: 11/18/2018 TECHNIQUE: Sagittal and Axial imaging includes T1, T2, STIR and gradient echo sequences. LIMITATIONS: None. FINDINGS: LOCALIZER: No worrisome findings. ALIGNMENT: Normal. VERTEBRAE: Intact. BONE MARROW: Normal. No marrow replacement or reactive changes. HARDWARE: None in the spine. CORD: Normal in size and signal intensity. SOFT TISSUES: No soft tissue masses. THORACIC DISCS T1-T12: Mild right neural foraminal stenosis at the T5/6 level on the basis of facet a rthropathy. The central canal and remaining neural foramina remain widely patent. LOWER CERVICAL: Incompletely imaged. No significant spinal stenosis or exit foraminal stenosis. UPPER LUMBAR: Incompletely imaged. No significant spinal stenosis or exit foraminal stenosis. OTHER: No other significant finding. IMPRESSION: No evidence of acute osseous injury or significant degenerative change. TECHNICAL DOCUMENTATION: JOB ID: [id number] 2010 [employer]- All Rights Reserved Reading location - IP/workstation name: [email or web address]
[2020-05-05] MEDS ORDERED: HYDROMORPHONE HCL INJ/PF 2 MG/ML AMPULE IV ONE ×2 (09:45→11:19)
[2020-05-05] MEDS ORDERED: DEXAMETHASONE SOD PHOS INJ 10 MG/1 ML VIAL IV ONE (09:45)
[2020-05-05] MEDS ORDERED: PROMETHAZINE HCL INJ 25 MG/1 ML VIAL IV ONE ×2 (09:46→11:19)
[2020-05-05 10:48] VITALS: BP 140/68
== END 2020-05-05 11:38 | disposition home or self-care (01) ==
LOC: ER 03:01
DX: G89.29 Other chronic pain (principal); M54.5 Low back pain; I10 Essential (primary) hypertension; R32 Unspecified urinary incontinence; Z98.1 Arthrodesis status
CPT/HCPCS: 96376; 99281; 96374; 96375; 36415; 85025; 80053; 72146; 72148; J1170; J2550; J1100

== ENCOUNTER 2020-05-12 03:17 | Emergency (ER) | payer OTHER, MEDICARE ==
[2020-05-12 04:56] LABS: APPEARANCE,URINE SLIGHTLY-CLOUDY; BILIRUBIN,URINE NEGATIVE (NEGATIVE); COLOR,URINE YELLOW; GLUCOSE, URINE NEGATIVE (NEGATIVE); KETONES,URINE NEGATIVE (NEGATIVE); LEUKOCYTE ESTERASE,URINE NEGATIVE (NEGATIVE); NITRITE,URINE NEGATIVE (NEGATIVE); PROTEIN,URINE 100 mg/dL (NEGATIVE); URINE SPECIFIC GRAVITY 1.027; UROBILINOGEN,URINE NEGATIVE mg/dL (<2.0)
[2020-05-12] MEDS ORDERED: NORMAL SALINE 1000 ML 1,000 ML IV ONE (05:27)
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
[2020-05-12 05:50] LABS: ABSOLUTE BASOPHILS # (AUTO) 0.1 10^3/uL (0.0-0.2); ABSOLUTE EOSINOPHILS # (AUTO) 0.2 10^3/uL (0.0-0.6); ABSOLUTE LYMPHOCYTES (AUTO) 4.2 10^3/uL (0.5-4.7); ABSOLUTE MONOCYTES (AUTO) 0.6 10^3/uL (0.1-1.4); ABSOLUTE NEUT (AUTO) 4.3 10^3/uL (1.7-8.2); BASOPHILS % (AUTO) 0.8 % (0-2); EOSINOPHILS % (AUTO) 2.1 % (0-6); HEMATOCRIT 41.7 % (37.9-51.0); HEMOGLOBIN 13.7 g/dL (13.5-17.0); LYMPHOCYTES % (AUTO) 44.9 % (13-45); MEAN CORPUSCULAR HEMOGLOBIN 26.2 pg (27.0-33.4); MEAN CORPUSCULAR HGB CONC 32.8 g/dL (32.0-36.0); MEAN CORPUSCULAR VOLUME 80 fl (80-97); MONOCYTES % (AUTO) 6.5 % (3-13); PLATELET COUNT 243 10^3/uL (150-450); RED BLOOD COUNT 5.22 10^6/uL (4.35-5.55); RED CELL DISTRIBUTION WIDTH 15.7 % (11.5-14.0); SEGMENTED NEUTROPHILS % (AUTO) 45.7 % (42-78); TOTAL CELLS COUNTED % (AUTO) 100 %; WHITE BLOOD COUNT 9.4 10^3/uL (4.0-10.5)
[2020-05-12] MEDS: HYDROMORPHONE HCL INJ/PF 2 MG/ML AMPULE IV PRN ×2 (06:00→08:32)
[2020-05-12] MEDS ORDERED: ONDANSETRON HCL INJ/PF 4 MG/2 ML SDV IV PRN (06:03)
[2020-05-12 06:16] LABS: ALBUMIN 4.4 g/dL (3.5-5.0); ALKALINE PHOSPHATASE 127 U/L (38-126); ANION GAP 9 (5-19); ASPARTATE AMINO TRANSFERASE 37 U/L (17-59); BILIRUBIN,DIRECT 0.3 mg/dL (0.0-0.4); BILIRUBIN,TOTAL 0.4 mg/dL (0.2-1.3); BLOOD UREA NITROGEN 11 mg/dL (7-20); CALCIUM 9.2 mg/dL (8.4-10.2); CARBON DIOXIDE 25 mmol/L (22-30); CHLORIDE 103 mmol/L (98-107); GLUCOSE 109 mg/dL (75-110); POTASSIUM 4.1 mmol/L (3.6-5.0); TOTAL PROTEIN 8.1 g/dL (6.3-8.2)
--- NOTE | 2020-05-12 06:50 | RADIOLOGY REPORT (SQ) ---
EXAM DESCRIPTION: CT ABDOMEN PELVIS WITHOUT IV CONTRAST COMPLETED DATE/TME: 05/12/2020 06:35 CLINICAL HISTORY: 45 years, Male, left flank pain, hematuria. hx of stones Comparison: None TECHNIQUE: Contiguous axial CT images of the abdomen and pelvis were obtained. Sagittal and coronal reformats were reviewed. This exam was performed according to our departmental dose-optimization program, which includes automated exposure control, adjustment of the mA and/or kV according to patient size and/or use of iterative reconstruction technique. FINDINGS: Lung bases: Clear. Liver:Unremarkable. No focal liver lesion. Gallbladder:Cholecystectomy clips seen in gallbladder fossa. Spleen:Unremarkable Pancreas: Pancreas is unremarkable. Adrenal glands:Within normal limits. Kidneys/ureters: Bilateral renal calculi. No hydronephrosis. No ureteral calculi. Stomach/small bowel/colon: Stomach is unremarkable. Small bowel is unremarkable. Colon is unremarkable. Appendix: No evidence of appendicitis. Peritoneum: No free fluid. Vascular structures: within normal limits Lymph nodes: No abnormal lymph nodes. Bladder:Unremarkable. Pelvic organs: No acute abnormality Bones: No acute osseous abnormality. Posterior surgical fusion L4-5 with intervertebral body disc spacer. Osteonecrosis of both femoral heads. The femoral head contour is maintained. Soft tissues: Unremarkable.. IMPRESSION: Nonobstructive bilateral renal calculi. No acute findings in the abdomen or pelvis. TECHNICAL DOCUMENTATION: Quality ID # [id number]: Final reports with documentation of one or more dose reduction techniques (e.g., Automated exposure control, adjustment of the mA and/or kV according to patient size, use of iterative reconstruction technique) copyright 2011 [employer]- All Rights Reserved
[2020-05-12 07:11] VITALS: BP 182/105
[2020-05-12] MEDS ORDERED: PROMETHAZINE HCL INJ 25 MG/1 ML VIAL IV ONE (08:06)
== END 2020-05-12 08:36 | disposition home or self-care (01) ==
LOC: ER 03:17
DX: N20.0 Calculus of kidney (principal); R31.0 Gross hematuria; R10.9 Unspecified abdominal pain; R11.0 Nausea; I10 Essential (primary) hypertension; Z79.899 Other long term (current) drug therapy; Z79.891 Long term (current) use of opiate analgesic; Z88.8 Allergy status to other drugs, medicaments and biological substances; Z88.0 Allergy status to penicillin; Z88.6 Allergy status to analgesic agent; Z88.5 Allergy status to narcotic agent
CPT/HCPCS: 99285; 96361; 96374; 96375; 36415; 83690; 85025; 80053; 81001; 74176; J1170; J2550; J2405; J7030